=== PATIENT | female | born 1955 | race Caucasian/White ===

== ENCOUNTER → 2016-10-01 | Outpatient (CLI) | payer BC ==
[~2016-10-01] MED LIST: ACET-1311 PO; ASPI325T39 PO; BISA-16 PO; CALC500C3 PO; HYDR-5688 PO; MULT-513 PO; ONDA8TAB12 PO; PHEN1SUP PR; STLS PO; TAPE1TAB9 PO; WHEATAB2 PO
--- NOTE | 2016-10-02 13:09 | MAMMOGRAPHY REPORT ---
BILATERAL DIGITAL SCREENING MAMMOGRAM TOMOSYNTHESIS WITH CAD: 10/01/2016 CLINICAL HISTORY: Routine screening. Patient has no complaints. TECHNIQUE: Breast tomosynthesis in addition to standard 2D mammography was performed. Current study was also evaluated with a Computer Aided Detection (CAD) system. COMPARISON: Comparison is made to exams dated: 09/28/2015 mammogram, 09/21/2013 mammogram, 09/22/2014 m ammogram, 09/15/2012 mammogram, 03/17/2012 mammogram, and 09/06/2010 mammogram - [facility]. BREAST COMPOSITION: There are scattered areas of fibroglandular density in both breasts. FINDINGS: The breast parenchymal pattern is similar to prior mammograms. There are a few stable brian ign appearing round microcalcifications in the breasts. No suspicious mass, architectural distortio n or cluster of microcalcifications is seen. IMPRESSION: ACR BI-RADS CATEGORY 1: NEGATIVE There is no mammographic evidence of malignancy. A 1 year screening mammogram is recommended. The p atient will receive written notification of the results. Approximately 10% of breast cancers are not detected with mammography. A negative mammographic repor t should not delay biopsy if a clinically suggestive mass is present. Jannie Nguyen M.D. ay/:10/01/2016 17:06:02 Travel Services Professional: Gavin ALATORRE(Elvie)(M), [facility] letter sent: Normal 1/2 BI-RADS Code: ACR BI-RADS Category 1: Negative
== END | disposition home or self-care (01) ==
LOC: C.MAMM 08:39
PROVIDERS: ATTEND Family Medicine
DX: Z12.31 Encounter for screening mammogram for malignant neoplasm of breast (principal)

== ENCOUNTER 2017-08-21 20:20 | Observation (INO) | payer BC ==
[~2017-08-21] VITALS: Ht 165.1 cm; Wt 91.2 kg
[2017-08-21 20:24] VITALS: Ht 165.1 cm; Wt 91.2 kg
[2017-08-21] MEDS ORDERED: ASPIRIN 81 MG CHEW PO STA (21:06)
--- NOTE | 2017-08-21 21:11 | EMERGENCY ROOM VISIT NOTE ---
History Report prepared by David: Bertha Mae Under the Supervision of: Dr. Amber Welsh M.D. First contact with patient: 20:36 Chief Complaint: CHEST PAIN Stated Complaint: CHEST PAIN - SENT FROM URGENT CARE Nursing Triage Summary: pt c/o illness x2 weeks. seen at PCP and dx with bronchitis yesterday and placed on meds. today reports "it feels like an elephant is sitting on my chest." daughter reports elevated blood pressure at urgent care, BP in triage 205/129. pt ambulatory independently. cough noted. breathing regularly and independently. History of Present Illness The patient is a 62 year old female who presents to the Emergency Room with complaints of worsening chest heaviness beginning at 1430 today. The patient states that she has bronchitis and has been sick for the last 2 weeks. Per family, the patient has had bronchitis before but has never had the chest pain with it. She denies having fevers and nausea, but states that she has had a productive cough. She states that the pain does not radiate to her arms, jaw, or back. Per family, the patient's blood pressure was higher than usual today. The patient denies a history of cardiac problems and blood clots. She reports a history of uterine cancer 5 years ago. Source of History: patient, family Onset: 1430 today Position: chest Quality: other (heaviness) Timing: worsening Associated Symptoms: + cough (productive), No fevers, No nausea Review of Systems See HPI for pertinent positives & negatives. A total of 10 systems reviewed and were otherwise negative. Past Medical & Surgical Medical Problems: (1) Uterine cancer Surgical Problems: (1) History of hysterectomy Family History No pertinent family history stated. Social History Smoking Status: Never Smoker Marital Status: Housing Status: lives with family Occupation Status: employed Current/Historical Medications Scheduled Amlodipine (Norvasc), 5 MG PO DAILY Calcium Carbonate (Tums), 2 TABLETS PO DAILY Carvedilol (Carvedilol), 3.125 MG PO BID Levofloxacin (Levofloxacin), 500 MG PO DAILY@2100 Multiple Vitamins W/ Minerals (Centrum Silver Adult 50+), 1 TAB PO DAILY Prednisone (Prednisone), Unknown Dose PO DAILY Ranitidine (Zantac), 150 MG PO DAILY Scheduled PRN Acetaminophen (Tylenol), 650 MG PO Q6 PRN for Pain Benzonatate (Tessalon Perles), 100 MG PO DIRECTED PRN for Cough Docusate Sodium (Stool Softener), 100 MG PO BID PRN for Constipation Allergies Coded Allergies: Morphine (Verified Allergy, Intermediate, GI SYMPTOMS, 08/21/17) Oxycodone (Verified Adverse Reaction, Intermediate, GI SYMPTOMS, 08/21/17) NAUSEA/VOMITING Codeine (Verified Adverse Reaction, Mild, NAUSEA & VOMITING, 08/21/17) Physical Exam Vital Signs Date Time Temp Pulse Resp B/P (MAP) Pulse Ox O2 Delivery O2 Flow Rate FiO2 08/21/17 22:16 66 152/87 94 Room Air 08/21/17 21:16 73 08/21/17 20:28 96 Room Air 08/21/17 20:24 36.4 76 18 205/129 96 Room Air Physical Exam Vital signs reviewed. General: Well-appearing female, in no significant distress. HEENT: No scleral icterus, PERRLA, neck supple. Atraumatic. Cardiovascular: Regular rate and rhythm, no extra sounds. Chest: Tenderness to palpation over anterior chest wall. Pulmonary: Clear to auscultation bilaterally, normal work of breathing. Abdomen: Soft, nontender, nondistended, positive bowel sounds. Musculoskeletal: Atraumatic, no peripheral edema. Neurologic: Patient awake alert and oriented x 3, full strength in all 4 extremities. Cranial nerves 2 through 12 grossly intact. Skin: Warm, dry, no rash Medical Decision & Procedures ER Provider Diagnostic Interpretation: Radiology results as stated below per my review and radiologist interpretation: SINGLE VIEW CHEST CLINICAL HISTORY: Atypical chest pain. Cough and dyspnea. FINDINGS: An AP, portable, upright chest radiograph is compared to study dated 03/04/2014. The examination is degraded by portable technique and patient rotation. The heart is top normal for projection and there is atherosclerotic calcification of the thoracic aorta. Small calcified granulomas are observed. The lungs and pleural spaces are otherwise clear. No pneumothorax is seen. The skeletal structures are osteopenic. Arthritic change is noted in the shoulders and thoracic spine. IMPRESSION: No acute cardiopulmonary abnormality. Electronically signed by: Mark King M.D. 08/21/2017 10:17 PM Dictated Date/Time: 08/21/2017 10:16 PM Laboratory Results Test 08/21/17 21:25 08/21/17 21:29 08/21/17 21:34 Magnesium Level 2.4 mg/dl (1.8-2.4) Direct Bilirubin 0.1 mg/dl (0-0.2) Bedside D-Dimer 222 ng/mlFEU (0-450) Bedside Troponin I < 0.030 ng/ml (0-0.045) Urine Color YELLOW Urine Appearance CLEAR (CLEAR) Urine pH 6.0 (4.5-7.5) Urine Specific [place] 1.013 (1.000-1.030) Urine Protein NEG (NEG) Urine Glucose (UA) NEG (NEG) Urine Ketones NEG (NEG) Urine Occult Blood NEG (NEG) Urine Nitrite NEG (NEG) Urine Bilirubin NEG (NEG) Urine Urobilinogen NEG (NEG) Urine Leukocyte Esterase TRACE (NEG) Urine WBC (Auto) 1-5 /hpf (0-5) Urine RBC (Auto) 0-4 /hpf (0-4) Urine Hyaline Casts (Auto) 0 /lpf (0-5) Urine Epithelial Cells (Auto) 10-20 /lpf (0-5) Urine Bacteria (Auto) NEG (NEG) Laboratory results per my review. Medications Administered Medications (Trade) Dose Ordered Sig/Harish Route Start Time Stop Time Status Last Admin Dose Admin Aspirin (Aspirin Chew) 324 mg NOW STAT PO 08/21/17 21:06 08/21/17 21:08 DC 08/21/17 21:33 324 MG Nitroglycerin (Nitrostat Tab) 0.4 mg Q5M PRN SL 08/21/17 21:15 08/22/17 01:10 DC 08/21/17 21:59 0.4 MG Nitroglycerin (Nitroglycerin 2% Oint) 1 inch NOW ONCE EXT 08/21/17 22:45 08/21/17 22:46 DC 08/21/17 22:54 1 INCH ECG Indication: chest pain Rate (beats per minute): 73 Rhythm: normal sinus Findings: no acute ischemic change, no ectopy, other (left atrial enlargement) ED Course 2103: Past medical records reviewed. The patient was evaluated in room A7. A complete history and physical examination was performed. 2105: Ordered Aspirin 324 mg PO. 2114: Ordered Nitroglycerin 0.4 mg SL. 2244: Ordered Nitroglycerin 1 inch EXT. 2251: I reviewed the patient's case with Dr. Petersen. Dr. Petersen will evaluate the patient for further management. 2300: Upon reevaluation, the patient is resting comfortably. I discussed laboratory and radiographic results with her. She verbalized agreement of the treatment plan. The patient will be evaluated for further management and care. Medical Decision Differential Diagnoses: Acute coronary syndrome, pulmonary embolus, aortic dissection, musculoskeletal pain, pneumonia, pleural effusion, pneumothorax This patient was evaluated and appeared to be in no significant distress. IV access was obtained and laboratory work was drawn. She was given 324 mg of aspirin to chew. The patient was placed on the monitor technician and found to be in a normal sinus rhythm. EKG reveals no evidence of acute ischemic change. Chest x-ray is clear. Patient is noted to be markedly hypertensive. She did receive a glycerin for her chest discomfort. This did help and it did improve her blood pressure. Given the above findings, the patient will be evaluated by the hospitalist service for further management. She is aware of the plan and agrees. Medication Reconcilliation Current Medication List: was personally reviewed by me Blood Pressure Screening Patient's blood pressure: Elevated blood pressure will be monitored by hospitalist Consults Time Called: 2199 Consulting Physician: Dr. Acuña Returned Call: 2251 I reviewed the patient's case with Dr. Petersen. Dr. Petersen will evaluate the patient for further management. Impression Primary Impression: Hypertensive urgency Additional Impression: Substernal chest pain Scribe Attestation The scribe's documentation has been prepared under my direction and personally reviewed by me in its entirety. I confirm that the note above accurately reflects all work, treatment, procedures, and medical decision making performed by me. Departure Information Dispostion Being Evaluated By Hospitalist Prescriptions Ranitidine (Zantac) 150 Mg Tab 150 MG PO DAILY for 30 Days, #30 TAB Prov: Riki Kramer M.D. 08/23/17 Amlodipine (Norvasc) 5 Mg Tab 5 MG PO DAILY for 30 Days, #30 TAB Prov: Riki Kramer M.D. 08/23/17 Levofloxacin (Levofloxacin) 500 Mg Tab 500 MG PO DAILY@2100 for 6 Days, #6 TAB Prov: Riki Kramer M.D. 08/23/17 Carvedilol (Carvedilol) 3.125 Mg Tab 3.125 MG PO BID for 30 Days, #60 TAB Prov: Riki Kramer M.D. 08/23/17 Referrals Joon Benavidez III, M.D. (PCP) Patient Instructions My [facility] Problem Qualifiers
[2017-08-21] MEDS ORDERED: BENZ100C84 PO (21:29)
[2017-08-21] MEDS ORDERED: MULT-845 PO (21:29)
[2017-08-21] MEDS ORDERED: HYDR5SYP11 PO (21:29)
[2017-08-21] MEDS ORDERED: PRED20TA PO (21:29)
[2017-08-21] MEDS ORDERED: MELO-83 PO (21:29)
[2017-08-21] MEDS ORDERED: DOCU100C PO (21:29)
[2017-08-21] MEDS: NITROGLYCERIN 0.4 MG SL PER TAB CHARGE SL PRN ×2 (21:33→21:59)
[2017-08-21 21:37] LABS: BASO % 0.1 %; BASO ABS # 0.01 K/uL (0-0.2); HEMATOCRIT 40.4 % (37-47); HEMOGLOBIN 13.4 g/dL (12.0-16.0); IG# 0.03 K/uL (0.00-0.02); LYMPH % 13.2 %; LYMPH ABS # 1.01 K/uL (1.2-3.4); MEAN CELL VOLUME 87.6 fL (80-100); MEAN CORPUSCULAR HEMOGLOBIN 29.1 pg (25-34); MEAN CORPUSCULAR HGB CONC 33.2 g/dl (32-36); MEAN PLATELET VOLUME 10.1 fL (7.4-10.4); MONO % 7.3 %; MONO ABS # 0.56 K/uL (0.11-0.59); NEUT ABS # 6.05 K/uL (1.4-6.5); PLATELET COUNT 219 K/uL (130-400); RED CELL DISTRIBUTION WIDTH CV 14.7 % (11.5-14.5); RED CELL DISTRIBUTION WIDTH SD 47.4 fL (36.4-46.3); WHITE BLOOD COUNT 7.66 K/uL (4.8-10.8)
[2017-08-21 21:56] LABS: ALBUMIN 4.1 gm/dl (3.4-5.0); CALCIUM 9.1 mg/dl (8.5-10.1); CREATININE 0.73 mg/dl (0.60-1.20); POTASSIUM 3.9 mmol/L (3.5-5.1)
[2017-08-21 21:59] LABS: TOTAL PROTEIN 7.2 gm/dl (6.4-8.2)
--- NOTE | 2017-08-21 22:18 | DIAGNOSTIC IMAGING REPORT ---
SINGLE VIEW CHEST CLINICAL HISTORY: Atypical chest pain. Cough and dyspnea. FINDINGS: An AP, portable, upright chest radiograph is compared to study dated 03/04/2014. The examination is degraded by portable technique and patient rotation. The heart is top normal for projection and there is atherosclerotic calcification of the thoracic aorta. Small calcified granulomas are observed. The lungs and pleural spaces are otherwise clear. No pneumothorax is seen. The skeletal structures are osteopenic. Arthritic change is noted in the shoulders and thoracic spine. IMPRESSION: No acute cardiopulmonary abnormality. Electronically signed by: Mark King M.D. 08/21/2017 10:17 PM Dictated Date/Time: 08/21/2017 10:16 PM
[2017-08-21] MEDS ORDERED: NITROGLYCERIN OINT 2% 1GM PACKET EXT ONE (22:45)
[2017-08-21] MEDS ORDERED: IV FLUIDS COMPLETED PRN (23:45)
[2017-08-22] VITALS (11 sets, daily range): BP systolic 124–166; BP diastolic 73–95; PULSE 61–90; TEMP 36.4–36.7; O2SAT 92–98
[2017-08-22] MEDS ORDERED: LEVOFLOXACIN 500 MG TAB PO ONE (00:38)
[2017-08-22] MEDS ORDERED: BENZONATATE 100MG CAP PO PRN (00:45)
[2017-08-22] MEDS ORDERED: CLONIDINE HCL 0.1 MG TAB PO PRN (00:45)
[2017-08-22] MEDS ORDERED: ONDANSETRON INJ 2 MG/ML 2 ML VIAL IV PRN (00:45)
[2017-08-22] MEDS ORDERED: NITROGLYCERIN 0.4 MG SL PER TAB CHARGE SL PRN (00:45)
--- NOTE | 2017-08-22 00:58 | History and Physical ---
History & Physical Date & Time of Service: Aug 22, 2017 at 00:46 Chief Complaint: Chest Pain - Sent From Urgent Care Primary Care Physician: Joon Benavidez III, M.D. History of Present Illness Source: patient, clinic records 62 year old female with history of Uterine CA, and other problems noted below presenting with chest pain starting his afternoon. Patient follows with Dr. Benavidez for PCP. Patient has been having 2-3 weeks history of productive cough and progressive dyspnea with exertion. She saw Dr. Benavidez yesterday, found to have wheezing, told to have bronchitis and was given Prednisone, Hycodan and Tessalon pearles which patient started to take yesterday with minimal relief of symptoms. 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 She went to the Urgent Care Clinic and patient was directed to come to the ER. At the ER, patient's systolic bp was in the 170s. EKG no signs of ischemia CM x 1 negative CXR no pneumonia. She was given Nitro SL x 2 with relief of chest pain. On my exam, patient seen resting, comfortable. States chest pain is only 1/10, denies other symptoms. Past Medical/Surgical History Medical Problems: (1) Uterine cancer Status: Resolved Surgical Problems: (1) History of hysterectomy Status: Resolved Family History Heart Attack- Brother Social History Smoking Status: Never Smoker Smokeless Tobacco Use: No Alcohol Use: none Drug Use: none Marital Status: Housing status: lives with family Occupational Status: employed Immunizations History of Influenza Vaccine: No History of Tetanus Vaccine?: No History of Pneumococcal: No History of Hepatitis B Vaccine: Yes Multi-Drug Resistant Organisms History of MDRO: No Allergies Coded Allergies: Morphine (Verified Allergy, Intermediate, GI SYMPTOMS, 08/21/17) Oxycodone (Verified Adverse Reaction, Intermediate, GI SYMPTOMS, 08/21/17) NAUSEA/VOMITING Codeine (Verified Adverse Reaction, Mild, NAUSEA & VOMITING, 08/21/17) Home Medications Scheduled Amlodipine (Norvasc), 5 MG PO DAILY Calcium Carbonate (Tums), 2 TABLETS PO DAILY Carvedilol (Carvedilol), 3.125 MG PO BID Levofloxacin (Levofloxacin), 500 MG PO DAILY@2100 Multiple Vitamins W/ Minerals (Centrum Silver Adult 50+), 1 TAB PO DAILY Prednisone (Prednisone), Unknown Dose PO DAILY Ranitidine (Zantac), 150 MG PO DAILY Scheduled PRN Acetaminophen (Tylenol), 650 MG PO Q6 PRN for Pain Benzonatate (Tessalon Perles), 100 MG PO DIRECTED PRN for Cough Docusate Sodium (Stool Softener), 100 MG PO BID PRN for Constipation Review of Systems Constitutional- no fever; no weight loss Eyes- no acute visual changes ENT- no sinus drainage; no pharyngitis Pulmonary-(+) as above Cardiac-(+) as above GI- no nausea, no vomiting, no diarrhea, no melena, no hematochezia - no dysuria, no hematuria Musculoskeletal- no arthralgias, no myalgias Derm- no rashes, no new skin lesions, no changing skin lesions Hematologic- no unusual bruising, no unusual bleeding Lymphatics- no adenopathy Endocrine- no polyuria or polydipsia; no heat or cold intolerance Neuro- no headaches, no focal neurologic symptoms Psych- no anxiety, no depression Physical Exam Vital Signs Date Time Temp Pulse Resp B/P (MAP) Pulse Ox O2 Delivery O2 Flow Rate FiO2 08/22/17 00:40 36.4 66 18 163/83 95 08/21/17 23:50 66 163/83 95 Room Air 08/21/17 22:16 66 152/87 94 Room Air 08/21/17 21:16 73 08/21/17 20:28 96 Room Air 08/21/17 20:24 36.4 76 18 205/129 96 Room Air General Appearance: WD/WN, no apparent distress Head: normocephalic, atraumatic Eyes: normal inspection, PERRL, EOMI, sclerae normal ENT: normal ENT inspection, hearing grossly normal, pharynx normal Neck: supple, no adenopathy, thyroid normal, no JVD, trachea midline Respiratory/Chest: chest non-tender, lungs clear, normal breath sounds, no respiratory distress, no accessory muscle use Cardiovascular: regular rate, rhythm, no edema, no JVD, no murmur, normal peripheral pulses Abdomen/GI: normal bowel sounds, non tender, soft Back: normal inspection, no CVA tenderness Extremities/Musculoskelatal: normal inspection, no calf tenderness, normal capillary refill, no pedal edema Neurologic/Psych: clinical liaison II-XII nml as tested, no motor/sensory deficits, alert, normal mood/affect, oriented x 3 Skin: normal color, warm/dry Lymphatic: no adenopathy Diagnostics Laboratory Results Results Past 24 Hours Test 08/21/17 21:25 08/21/17 21:29 08/21/17 21:34 Range/Units White Blood Count 7.66 4.8-10.8 K/uL Red Blood Count 4.61 4.2-5.4 M/uL Hemoglobin 13.4 12.0-16.0 g/dL Hematocrit 40.4 37-47 % Mean Corpuscular Volume 87.6 80-100 fL Mean Corpuscular Hemoglobin 29.1 25-34 pg Mean Corpuscular Hemoglobin Concent 33.2 32-36 g/dl Platelet Count 219 130-400 K/uL Mean Platelet Volume 10.1 7.4-10.4 fL Neutrophils (%) (Auto) 79.0 % Lymphocytes (%) (Auto) 13.2 % Monocytes (%) (Auto) 7.3 % Eosinophils (%) (Auto) 0.0 % Basophils (%) (Auto) 0.1 % Neutrophils # (Auto) 6.05 1.4-6.5 K/uL Lymphocytes # (Auto) 1.01 1.2-3.4 K/uL Monocytes # (Auto) 0.56 0.11-0.59 K/uL Eosinophils # (Auto) 0.00 0-0.5 K/uL Basophils # (Auto) 0.01 0-0.2 K/uL RDW Standard Deviation 47.4 36.4-46.3 fL RDW Coefficient of Variation 14.7 11.5-14.5 % Immature Granulocyte % (Auto) 0.4 % Immature Granulocyte # (Auto) 0.03 0.00-0.02 K/uL Sodium Level 141 136-145 mmol/L Potassium Level 3.9 3.5-5.1 mmol/L Chloride Level 106 98-107 mmol/L Carbon Dioxide Level 30 21-32 mmol/L Anion Gap 5.0 3-11 mmol/L Blood Urea Nitrogen 22 7-18 mg/dl Creatinine 0.73 0.60-1.20 mg/dl Est Creatinine Clear Calc Drug Dose 70.1 ml/min Estimated GFR () 100.9 Estimated GFR (Non- 87.0 BUN/Creatinine Ratio 29.8 10-20 Random Glucose 125 70-99 mg/dl Calcium Level 9.1 8.5-10.1 mg/dl Magnesium Level 2.4 1.8-2.4 mg/dl Total Bilirubin 0.3 0.2-1 mg/dl Direct Bilirubin 0.1 0-0.2 mg/dl Aspartate Amino Transf (AST/SGOT) 16 15-37 U/L Alanine Aminotransferase (ALT/SGPT) 82 12-78 U/L Alkaline Phosphatase 81 45-117 U/L Total Protein 7.2 6.4-8.2 gm/dl Albumin 4.1 3.4-5.0 gm/dl Bedside D-Dimer 222 0-450 ng/mlFEU Bedside Troponin I < 0.030 0-0.045 ng/ml Urine Color YELLOW Urine Appearance CLEAR CLEAR Urine pH 6.0 4.5-7.5 Urine Specific [place] 1.013 1.000-1.030 Urine Protein NEG NEG Urine Glucose (UA) NEG NEG Urine Ketones NEG NEG Urine Occult Blood NEG NEG Urine Nitrite NEG NEG Urine Bilirubin NEG NEG Urine Urobilinogen NEG NEG Urine Leukocyte Esterase TRACE NEG Urine WBC (Auto) 1-5 0-5 /hpf Urine RBC (Auto) 0-4 0-4 /hpf Urine Hyaline Casts (Auto) 0 0-5 /lpf Urine Epithelial Cells (Auto) 10-20 0-5 /lpf Urine Bacteria (Auto) NEG NEG Diagnostic Radiology CXR: no infiltrates noted EKG sinus rhythm, HR 73, no signs of acute ischemia or infarct Impression Assessment and Plan 62 year old female with history of Uterine CA, and other problems noted below presenting with chest pain starting his afternoon. CHEST PAIN POSSIBLY FROM HYPERTENSIVE URGENCY - no history of HTN - relieved with Nitro x 2 - start Amlodipine 5mg po daily PRN Clonidine POSSIBLE COSTOCHONDRITIS - has 2-3 week history of persistent cough R/O ACS - risk factor: history of CAD- brother, underlying HTN? - CM x 2 echo - was given ASA at the ER given 2 Nitros with relief - will consult Cardiology ACUTE BRONCHITIS - started 2-3 weeks ago - CXR no infiltrates - start Levaquin 500mg po daily Nebs PRN Tessalon pearls short Prednisone course HISTORY OF UTERINE CANCER - monitor as outpatient DVT Prophylaxis - Heparin SC FULL CODE DISPOSITION anticipate return home when medically stable ff up with PCP Dr. Benavidez VTE Prophylaxis VTE Risk Assessment Done? Y/N: Yes Risk Level: Moderate Given or contraindicated: SCD's
--- NOTE | 2017-08-22 01:00 | NUR ---
A: Patient received into room 280-1. NSR on the panel monitor. No complaints of CP. Patient C/O GARZON- Nitro paste removed by documentation writer. Oriented to room and call sharp system. Fall risk and code word documents completed and placed on chart. Patient encouraged to ring for assistance when needed. Will continue to monitor and assess patient.
[2017-08-22] MEDS: LEVALBUTEROL 0.63MG/3 ML NEB INH SCH ×3 (01:35→07:22)
[2017-08-22] MEDS: ACETAMINOPHEN 325 MG TAB PO PRN (01:57)
--- NOTE | 2017-08-22 04:00 | NUR ---
A: Patient is resting well. No complaints of pain or signs of distress. Remains on the metal tube cutter. No acute changes. Will continue to monitor and assess patient. Patient is wearing own shoes in the room. Addendum: 08/22/17 at 0505 by Ginette Chicas RN Observation status
[2017-08-22 04:03] LABS: CKMB 2.5 ng/ml (0.5-3.6)
[2017-08-22] MEDS ORDERED: PNEUMOCOCCAL POLYSACCHARIDES 25 MCG/0.5 ML VIAL/SYR IM. ONE (05:00)
[2017-08-22] MEDS ORDERED: PNEUMOCOCCAL ADMINISTRATION CHARGE ONE (05:00)
[2017-08-22] MEDS ORDERED: NURSING VERBAL MED ORDER ONE (05:30)
[2017-08-22] MEDS: HEPARIN SOD 5000 UNIT/0.5 ML CARP SQ SCH ×3 (06:00→21:28)
--- NOTE | 2017-08-22 08:00 | NUR ---
OBS- Alert and oriented. Denies CP/chest pressure. SR on monitor. Continue with md plan
[2017-08-22] MEDS: ALBUTEROL HFA INHALER 8.5 GM INH SCH ×4 (08:08→21:26)
[2017-08-22] MEDS ORDERED: AMLODIPINE BESYLATE 5 MG TAB PO SCH (09:00)
[2017-08-22] MEDS ORDERED: LEVALBUTEROL 0.63MG/3 ML NEB INH PRN (09:00)
--- NOTE | 2017-08-22 11:37 | Cardiology Consultation ---
Cardiology Consultation Date of Consultation: Aug 22, 2017 Requesting Physician: Nicola Attending Director Of Corporate Marketing: Marin (Kristian Hickey PA-C) History of Present Illness Mrs. Sebastian is a very pleasant 62 year old female who is being seen at the request of Dr. Petersen. Reason for consultation is chest pain. Mrs. Sebastian notes no prior cardiac history. She denies history of CAD, AK, CHF, arrhythmias , heart murmur, rheumatic fever, or scarlet fever and denies a prior history of hypertension, dyslipidemia, or diabetes mellitus. For approximately the last two to three weeks she has been dealing with bronchitic symptoms. On Saturday she was evaluated by her PCP and prescribed Prednisone, Hycodan, and Tessalon Perles. She also takes Mobic daily for arthritis. Yesterday she developed a constant nonradiating heaviness sensation in the chest that seemed to be aggravated by activity and improved but never resolved with rest. Towards evening it felt as though she had an elephant on her chest and had "some trouble breathing." After consulting with her son and [id number] who is a PA-C for [facility] she decided to seek care at Urgent Care who referred her to the [facility] ER. Blood pressure was documented to be 205/129. She was given two sublingual nitroglycerin with improvement in her presenting symptoms. Blood pressure improved to 152/87. Chest x-ray showed no acute cardiopulmonary abnormality. EKG revealed normal sinus rhythm at 73 bpm with possible left atrial enlargement and early repolarization type changes. Thus far, cardiac enzymes are negative times two. Repeat EKG this morning revealed normal sinus rhythm with voltage criteria for LVH. Resting echocardiography is pending. (Kristian Hickey PA-C) Past Medical/Surgical History Problem List: Past Medical and Surgical History: Uterine cancer Total abdominal hysterectomy Tubal ligation Lumbar spinal fusion Right knee replacement. Right carpal tunnel surgery (Kristian Hickey PA-C) Family History Father with pancreatic cancer at 70. He had a history of CAD. Mother of "old age," age 86. Brother later year with what sounds like a PE. (Kristian Hickey PA-C) Social History Nonsmoker. Rare alcohol. No illegal drug use. . 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 (Kristian Hickey PA-C) Review Of Systems General: No current fever or chills. HEENT: No headache. Cardiovascular: See above. Pulmonary: See above. Gastrointestinal: No nausea, vomiting, or diarrhea. No melena or hematochezia. Skin: No rash. Musculoskeletal: No myalgias or arthralgias. Neurological: No history of TIA, CVA, or seizures. Complete review of systems is as stated above, negative, or noncontributory. (Kristian Hickey PA-C) Allergies Coded Allergies: Morphine (Verified Allergy, Intermediate, GI SYMPTOMS, 08/21/17) Oxycodone (Verified Adverse Reaction, Intermediate, GI SYMPTOMS, 08/21/17) NAUSEA/VOMITING Codeine (Verified Adverse Reaction, Mild, NAUSEA & VOMITING, 08/21/17) Medications Reported Home Medications Medications Dose Route/Sig Max Daily Dose Days Date Category Dose Instructions Hycodan 5/1.5MG 5 Ml (Hydrocodone W/ Homatropine) 1 Syp Syp Unknown Dose PO DIRECTED PRN 08/21/17 Reported "TO TAKE MOSTLY AT BEDTIME". Prednisone 20 Mg Tab Unknown Dose PO DAILY 08/21/17 Reported TAPER DOSE STARTED 08/20/17 FOR 5 DAYS. Tessalon Perles (Benzonatate) 100 Mg Cap 100 Mg PO DIRECTED PRN 08/21/17 Reported Meloxicam 15 Mg Tab 15 Mg PO DAILY 08/21/17 Reported Stool Softener (Docusate Sodium) 100 Mg Cap 100 Mg PO BID PRN 08/21/17 Reported Centrum Silver Adult 50+ (Multiple Vitamins W/ Minerals) 1 Tab Tab 1 Tab PO DAILY 08/21/17 Reported Tylenol (Acetaminophen) 325 Mg Tab 650 Mg PO Q6 PRN 02/24/14 Reported Tums (Calcium Carbonate) 500 Mg Chew 2 Tablets PO DAILY 05/09/11 Reported (Kristian Hickey PA-C) Physical Exam Vital Signs (Last 8hrs): Last 8 Hrs Date Time Temp Pulse Resp B/P (MAP) Pulse Ox O2 Delivery O2 Flow Rate FiO2 08/22/17 08:00 Room Air 08/22/17 07:33 36.6 65 16 154/86 (108) 93 Room Air 08/22/17 07:26 61 16 98 Room Air 08/22/17 04:28 36.4 73 18 124/73 (90 96 Room Air 08/22/17 04:00 Room Air General: Alert and Oriented x3. NAD. HEENT: Normocephalic Atraumatic. PER. EOMI. Conjunctiva and sclera clear Neck: Supple. No carotid bruits noted. No JVD. Respiratory: Breath sounds clear to auscultation bilaterally. No w/r/r. Cardiovascular: Regular with a soft systolic ejection murmur. No diastolic murmur. No rub. No gallop. PMI is non displaced. Abdomen: +BS. Soft. Nontender. No masses. Extremities: No edema. No clubbing. No cyanosis. Distal pulses 1-2/4 bilaterally. Neuro: No focal deficits. Psychiatric: Normal affect. (Kristian Hickey PA-C) Data Last 24 Hours Test 08/21/17 21:25 08/21/17 21:29 08/21/17 21:34 08/22/17 03:20 White Blood Count 7.66 K/uL Red Blood Count 4.61 M/uL Hemoglobin 13.4 g/dL Hematocrit 40.4 % Mean Corpuscular Volume 87.6 fL Mean Corpuscular Hemoglobin 29.1 pg Mean Corpuscular Hemoglobin Concent 33.2 g/dl Platelet Count 219 K/uL Mean Platelet Volume 10.1 fL Neutrophils (%) (Auto) 79.0 % Lymphocytes (%) (Auto) 13.2 % Monocytes (%) (Auto) 7.3 % Eosinophils (%) (Auto) 0.0 % Basophils (%) (Auto) 0.1 % Neutrophils # (Auto) 6.05 K/uL Lymphocytes # (Auto) 1.01 K/uL Monocytes # (Auto) 0.56 K/uL Eosinophils # (Auto) 0.00 K/uL Basophils # (Auto) 0.01 K/uL RDW Standard Deviation 47.4 fL RDW Coefficient of Variation 14.7 % Immature Granulocyte % (Auto) 0.4 % Immature Granulocyte # (Auto) 0.03 K/uL Sodium Level 141 mmol/L Potassium Level 3.9 mmol/L Chloride Level 106 mmol/L Carbon Dioxide Level 30 mmol/L Anion Gap 5.0 mmol/L Blood Urea Nitrogen 22 mg/dl Creatinine 0.73 mg/dl Est Creatinine Clear Calc Drug Dose 70.1 ml/min Estimated GFR () 100.9 Estimated GFR (Non- 87.0 BUN/Creatinine Ratio 29.8 Random Glucose 125 mg/dl Calcium Level 9.1 mg/dl Magnesium Level 2.4 mg/dl Total Bilirubin 0.3 mg/dl Direct Bilirubin 0.1 mg/dl Aspartate Amino Transf (AST/SGOT) 16 U/L Alanine Aminotransferase (ALT/SGPT) 82 U/L Alkaline Phosphatase 81 U/L Total Protein 7.2 gm/dl Albumin 4.1 gm/dl Bedside D-Dimer 222 ng/mlFEU Bedside Troponin I < 0.030 ng/ml Urine Color YELLOW Urine Appearance CLEAR Urine pH 6.0 Urine Specific [place] 1.013 Urine Protein NEG Urine Glucose (UA) NEG Urine Ketones NEG Urine Occult Blood NEG Urine Nitrite NEG Urine Bilirubin NEG Urine Urobilinogen NEG Urine Leukocyte Esterase TRACE Urine WBC (Auto) 1-5 /hpf Urine RBC (Auto) 0-4 /hpf Urine Hyaline Casts (Auto) 0 /lpf Urine Epithelial Cells (Auto) 10-20 /lpf Urine Bacteria (Auto) NEG Prothrombin Time 10.3 SECONDS Prothromb Time International Ratio 1.0 Total Creatine Kinase 52 U/L Creatine Kinase MB 2.5 ng/ml Creatine Kinase MB Ratio 4.8 Troponin I < 0.015 ng/ml Test 08/22/17 09:32 Total Creatine Kinase 46 U/L Creatine Kinase MB 2.0 ng/ml Creatine Kinase MB Ratio 4.3 Troponin I < 0.015 ng/ml Telemetry: Sinus around 70 bpm. No significant atrial or ventricular arrhythmias observed. No pauses. (Kristian Hickey PA-C) Assessment & Plan 62 year old female admitted with chest heaviness likely representing hypertensive urgency. EKG's negative x 2. Troponin negative x 2 RECOMMENDATIONS: Serial cardiac enzymes Resting echocardiography Add low dose Carvedilol and amlodipine for blood pressure control. Stress testing once blood pressure is adequately controlled and she is over the acute pulmonary illness, unless cardiac enzymes/TTE dictate need for catheterization. Recommend discontinuation of Mobic, risk factor and life style modification. (Kristian Hickey PA-C) CARDIOLOGY ATTENDING ADDENDUM: The patient was seen and personally examined. Agree with Kristian Hickey PA-C's findings and plans as documented above. (Rohan Funes, DO)
--- NOTE | 2017-08-22 12:00 | NUR ---
OBS- Alert and oriented , OOB independently. SR on monitor. Denies pain. Echo ordered, cardiology on consult
--- NOTE | 2017-08-22 16:00 | NUR ---
A: Patient alert and oriented times four. Patient has no complaint of chest pain or shortness of breath. patient is independent in the room and ambulates in bhatia way. Patient is resting with call sharp in reach.
--- NOTE | 2017-08-22 18:26 | ECHOCARDIOGRAM REPORT ---
*NOTICE TO RECEIVING REPUBLICAN AGENCY This information is strictly Confidential and protected under [place] law. [place] law prohibits you from making any further disclosure of this information unless further disclosure is expressly permitted by the written consent of the person to whom it pertains or is authorized by law. A general authorization for the release of medical or other information is not sufficient for this purpose. Hospital accepts no responsibility if the information is made available to any other person, INCLUDING THE PATIENT. Interpretation Summary * Name: CHUCK GARDUNO Study Date: 08/22/2017 01:40 PM BP: 153/88 mmHg * Patient Location: .[facility]\S\N280\S\1 HR: 70 * : 1955 (M/d/yyyy) Gender: Female Height: 65 in * Age: 62 yrs Ethnicity: [place] Weight: 204 lb * Ordering Physician: Russell Petersen * Referring Physician: Self, Referred * Performed By: Rosemarie Blanchard RCS * * Reason For Study: CHEST PAIN * BSA: 2.0 m2 * -- Conclusions -- * The left ventricle is normal in size. * There is borderline concentric left ventricular hypertrophy. * Ejection Fraction = 55-60%. * The right ventricular systolic function is normal. * The left atrial size is normal. * Right atrial size is normal. * No significant valvular pathology. Procedure Details * A complete two-dimensional transthoracic echocardiogram was performed (2D, M-mode, Doppler and color flow Doppler). Left Ventricle * The left ventricle is normal in size. * There is borderline concentric left ventricular hypertrophy. * Left ventricular systolic function is normal. * Ejection Fraction = 55-60%. * The left ventricular wall motion is normal. Right Ventricle * The right ventricle is normal size. * The right ventricular systolic function is normal. Atria * The left atrial size is normal. * Right atrial size is normal. * There is no evidence of atrial septal defect, but resolution does not allow assessment for a patent foramen ovale. Mitral Valve * The mitral valve anatomy is normal. * Significant mitral regurgitation is absent. Tricuspid Valve * The tricuspid valve anatomy is normal. * Significant tricuspid regurgitation is absent. Aortic Valve * The aortic valve is tricuspid. The leaflet thickness if normal. There is no aortic stenosis, and no significant insufficiency. * No hemodynamically significant valvular aortic stenosis. * There is no significant aortic regurgitation. Great Vessels * The aortic root and proximal ascending aorta are normal sized. Pericardium/Pleural * There is no pericardial effusion. MMode 2D Measurements and Calculations IVSd 1.1 cm IVSs 1.5 cm LVIDd 4.2 cm LVIDs 3.0 cm LVPWd 1.0 cm LVPWs 0.89 cm IVS/LVPW 1.0 FS 29.2 % EDV(Teich) 79.8 ml ESV(Teich) 34.9 ml EF(Teich) 56.3 % EDV(cubed) 75.6 ml ESV(cubed) 26.9 ml EF(cubed) 64.5 % % IVS thick 41.6 % % LVPW thick -15.27 % LV mass(C)d 152.1 grams LV mass(C)dI 76.2 grams/m\S\2 LV mass(C)s 111.0 grams LV mass(C)sI 55.6 grams/m\S\2 SV(Teich) 45.0 ml SI(Teich) 22.5 ml/m\S\2 SV(cubed) 48.7 ml SI(cubed) 24.4 ml/m\S\2 Ao root diam 2.6 cm Ao root area 5.1 cm\S\2 LA dimension 3.3 cm LA/Ao 1.3 LVOT diam 1.8 cm LVOT area 2.4 cm\S\2 LVAd ap4 31.0 cm\S\2 LVLd ap4 8.0 cm EDV(MOD-sp4) 97.1 ml EDV(sp4-el) 102.6 ml LVAs ap4 20.4 cm\S\2 LVLs ap4 7.1 cm ESV(MOD-sp4) 48.0 ml ESV(sp4-el) 49.9 ml EF(MOD-sp4) 50.5 % EF(sp4-el) 51.4 % LVAd ap2 31.0 cm\S\2 LVLd ap2 7.9 cm EDV(MOD-sp2) 97.5 ml EDV(sp2-el) 102.5 ml LVAs ap2 19.1 cm\S\2 LVLs ap2 6.9 cm ESV(MOD-sp2) 43.0 ml ESV(sp2-el) 44.8 ml EF(MOD-sp2) 55.9 % EF(sp2-el) 56.3 % LVLd %diff -0.28 % EDV(MOD-bp) 98.2 ml LVLs %diff -3.18 % ESV(MOD-bp) 46.0 ml EF(MOD-bp) 53.1 % SV(MOD-sp4) 49.1 ml SI(MOD-sp4) 24.6 ml/m\S\2 SV(MOD-sp2) 54.6 ml SI(MOD-sp2) 27.4 ml/m\S\2 SV(MOD-bp) 52.1 ml SI(MOD-bp) 26.1 ml/m\S\2 SV(sp4-el) 52.8 ml SI(sp4-el) 26.4 ml/m\S\2 SV(sp2-el) 57.7 ml SI(sp2-el) 28.9 ml/m\S\2 Doppler Measurements and Calculations MV E max berta 96.5 cm/sec MV A max berta 107.3 cm/sec MV E/A 0.90 MV P1/2t max berta 108.7 cm/sec MV P1/2t 61.1 msec MVA(P1/2t) 3.6 cm\S\2 MV dec slope 521.0 cm/sec\S\2 MV dec time 0.20 sec Ao V2 max 172.6 cm/sec Ao max PG 11.9 mmHg Ao max PG (full) 6.9 mmHg SHARAN(V,A) 1.6 cm\S\2 SHARAN(V,D) 1.6 cm\S\2 LV V1 max PG 5.0 mmHg LV V1 max 111.6 cm/sec PA V2 max 100.9 cm/sec PA max PG 4.1 mmHg
--- NOTE | 2017-08-22 19:19 | Progress Note ---
Progress Note Date of Service Aug 22, 2017. Progress Note Subjective Patient has been doing well today. No acute chest discomfort reported. Has some intermittent cough. But is comfortable Physical Exam General: no acute distress Lungs: good air entry, no wheezing Heart: Regular rate Abdomen: soft, nontender, + bowel sounds Extremities: no edema Plan: Cardiac workup for rule out ACS Patient has troponins negative x 3. Echocardiogram results * The left ventricle is normal in size. * There is borderline concentric left ventricular hypertrophy. * Ejection Fraction = 55-60%. * The right ventricular systolic function is normal. * The left atrial size is normal. * Right atrial size is normal. * No significant valvular pathology. Procedure Details * A complete two-dimensional transthoracic echocardiogram was performed (2D, M-mode, Doppler and color flow Doppler). Left Ventricle * The left ventricle is normal in size. * There is borderline concentric left ventricular hypertrophy. * Left ventricular systolic function is normal. * Ejection Fraction = 55-60%. * The left ventricular wall motion is normal. Right Ventricle * The right ventricle is normal size. * The right ventricular systolic function is normal. Atria * The left atrial size is normal. * Right atrial size is normal. * There is no evidence of atrial septal defect, but resolution does not allow assessment for a patent foramen ovale. Mitral Valve * The mitral valve anatomy is normal. * Significant mitral regurgitation is absent. Tricuspid Valve * The tricuspid valve anatomy is normal. * Significant tricuspid regurgitation is absent. Aortic Valve * The aortic valve is tricuspid. The leaflet thickness if normal. There is no aortic stenosis, and no significant insufficiency. * No hemodynamically significant valvular aortic stenosis. * There is no significant aortic regurgitation. Great Vessels * The aortic root and proximal ascending aorta are normal sized. Pericardium/Pleural * There is no pericardial effusion. As per other cardiology recommendations today on 08/22/17 "Add low dose Carvedilol and amlodipine for blood pressure control. Stress testing once blood pressure is adequately controlled and she is over the acute pulmonary illness, unless cardiac enzymes/TTE dictate need for catheterization. Recommend discontinuation of Mobic, risk factor and life style modification." ACUTE BRONCHITIS - started 2-3 weeks ago - CXR no infiltrates - continue with Levaquin 500mg po daily Nebs PRN Tessalon pearls short Prednisone course HISTORY OF UTERINE CANCER - monitor as outpatient DVT Prophylaxis - Heparin SC FULL CODE
--- NOTE | 2017-08-22 20:00 | NUR ---
A: See previous note assessment unchanged.
[2017-08-22] MEDS ORDERED: LEVOFLOXACIN 500 MG TAB PO SCH (21:00)
[2017-08-22] MEDS: CARVEDILOL 3.125 MG TAB PO SCH (21:26)
--- NOTE | 2017-08-23 | NUR ---
A/OBS/ID: Patient is resting well. No complaints of pain or signs of distress. Patient remains NPO except meds for further cardiac testing in am. Possible discharge after testing pending results. 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 Will continue to monitor and assess patient. Remains under observation status. Independent with all ADLs.
--- NOTE | 2017-08-23 04:00 | NUR ---
A/OBS: Patient admitted with substernal chest pain. A&OX4. Denies chest pain, SOB, N/V. SL left forearm. No edema, positive pulses. NSR on the monitor. Lungs are diminished throughout on room air. Skin intact. VSS. NPO except meds for stress echo today. Independent in the room. Pt is from home. Hourly rounding. Encouraged to ring for assistance. Will continue to monitor.
[2017-08-23 05:04] VITALS: BP 122/82; PULSE 75; TEMP 36.7; O2SAT 98
[2017-08-23] MEDS: HEPARIN SOD 5000 UNIT/0.5 ML CARP SQ SCH ×2 (05:50→14:00)
[2017-08-23 06:27] LABS: BASO % 0.6 %; BASO ABS # 0.04 K/uL (0-0.2); EOS % 1.1 %; EOS ABS # 0.07 K/uL (0-0.5); HEMATOCRIT 43.2 % (37-47); HEMOGLOBIN 14.2 g/dL (12.0-16.0); IG# 0.02 K/uL (0.00-0.02); LYMPH % 36.3 %; LYMPH ABS # 2.32 K/uL (1.2-3.4); MEAN CELL VOLUME 88.5 fL (80-100); MEAN CORPUSCULAR HEMOGLOBIN 29.1 pg (25-34); MEAN CORPUSCULAR HGB CONC 32.9 g/dl (32-36); MEAN PLATELET VOLUME 10.3 fL (7.4-10.4); MONO % 8.6 %; MONO ABS # 0.55 K/uL (0.11-0.59); NEUT % 53.1 %; NEUT ABS # 3.39 K/uL (1.4-6.5); PLATELET COUNT 206 K/uL (130-400); RED CELL DISTRIBUTION WIDTH CV 14.9 % (11.5-14.5); RED CELL DISTRIBUTION WIDTH SD 47.9 fL (36.4-46.3); WHITE BLOOD COUNT 6.39 K/uL (4.8-10.8)
[2017-08-23 06:48] VITALS: BP 162/88; PULSE 67; TEMP 36.5; O2SAT 91
--- NOTE | 2017-08-23 06:49 | NUR ---
Pt rang her call sharp and stated "I am having chest heaviness and tightness." Pts vitals are obtained. Stat EKG ordered. Replanting Machine Crewman notified. Will continue to monitor.
[2017-08-23 07:01] LABS: ALBUMIN 3.6 gm/dl (3.4-5.0); CALCIUM 9.2 mg/dl (8.5-10.1); CREATININE 0.82 mg/dl (0.60-1.20); POTASSIUM 3.8 mmol/L (3.5-5.1)
[2017-08-23 07:03] LABS: TOTAL PROTEIN 6.7 gm/dl (6.4-8.2)
[2017-08-23] MEDS ORDERED: AMLODIPINE BESYLATE 5 MG TAB PO ONE (07:15)
--- NOTE | 2017-08-23 07:16 | NUR ---
Dr. Petersen made aware of patients statement. Gave PO nitro tablet per MD order. 2L of oxygen applied per MD order. VSS obtained. EKG obtained. Report passed on to LEYLA Covington.
[2017-08-23 07:27] VITALS: BP 167/86; PULSE 68; TEMP 36.7; O2SAT 95
[2017-08-23] MEDS: ACETAMINOPHEN 325 MG TAB PO PRN (07:37)
[2017-08-23] MEDS: ALBUTEROL HFA INHALER 8.5 GM INH SCH ×2 (07:37→13:15)
[2017-08-23] MEDS: CARVEDILOL 3.125 MG TAB PO SCH (07:38)
--- NOTE | 2017-08-23 08:00 | NUR ---
A: Alert and oriented x4. VSS on room air. Chest pain resolved following nitro. Pt. reports headache, Tylenol given per pt. request. Denies chest pain or shortness of breath at this time. 2L O2 removed at this time with SpO2 95%. NSR on monitor. Planning for stress test today. at bedside. Plans to return home on discharge. Call sharp within reach. Continue to monitor.
--- NOTE | 2017-08-23 09:58 | Cardiology Follow-Up ---
Subjective General Date of Service: Aug 23, 2017. Chief Complaint: Chest discomfort Pt evaluation today including: conversation w/ patient, conversation w/ family , physical exam, chart review, lab review, review of studies, review of inpatient medication list History of Present Illness Patient seen and examined. at bedside. Nonradiating chest pressure without associated symptoms this morning around 6:30 AM. EKG obtained during the episode showed no acute changes. BP at that time was 162/88. She was given one sublingual nitroglycerin with "an instant headache," without improvement in the chest discomfort. Notes improvement in the discomfort 30 minutes "after the blood pressure med." August 22, 2017 TTE Interpretation Summary ([facility], Dr. Funes): The left ventricle is normal in size. There is borderline concentric left ventricular hypertrophy. Ejection Fraction = 55-60%. The right ventricular systolic function is normal. The left atrial size is normal. Right atrial size is normal. No significant valvular pathology. Allergies Coded Allergies: Morphine (Verified Allergy, Intermediate, GI SYMPTOMS, 08/21/17) Oxycodone (Verified Adverse Reaction, Intermediate, GI SYMPTOMS, 08/21/17) NAUSEA/VOMITING Codeine (Verified Adverse Reaction, Mild, NAUSEA & VOMITING, 08/21/17) Social History Hx Tobacco Use In Past Year?: No Hx Alcohol Use - Type And Amou: Yes (social- wine- not often ) Hx Substance Use - Type And Am: No Problem List Medical Problems: (1) Hypertensive urgency Status: Acute (2) Substernal chest pain Status: Acute Physical Exam Vital Signs Last Vital Signs Documentation Date Time Temp Pulse Resp B/P (MAP) Pulse Ox O2 Delivery O2 Flow Rate FiO2 08/23/17 07:27 36.7 68 18 167/86 (113) 95 Room Air Physical Exam Constitutional: Level of Distress: NAD Psychiatric: Mental Status: active & alert Orientation: to time, to place, to person Memory: recent memory normal, remote memory normal Head: normocephalic, atraumatic ENMT: nasal congestion Neck: pertinent finding (Normal JVP) Lungs: Auscultation: no wheezing, no rales/crackles, no rhonchi, deminished air movement, decreased breath sounds Cardiovascular: Heart Auscultation: RRR, normal S1, normal S2, no murmurs, no rubs, no gallops Peripheral Pulses: Dorsalis Pedis Pulse: normal on the left, normal on the right Abdomen: Inspection & Palpation: soft Extremities: no cyanosis, no edema, no clubbing Neurologic: Cranial Nerves: grossly intact Assessment and Plan Assessment and Plan 62 year old female admitted with chest heaviness/discomfort. Marked hypertension (205/129) observed on presentation D-dimer negative. CXR without acute cardiopulmonary process. EKG's without acute change Troponin negative x 3 Echo with normal wall motion, borderline concentric LVH, EF 55-60%, normal RV function, and no significant valvular pathology. RECOMMENDATIONS: Refer for exercise stress echocardiography Continue the antihypertensive regimen prescribed this admission (Coreg, amlodipine) ? Trial of an histamine H2 antagonist such as ranitidine Recommend discontinuation of Mobic Risk factor and life style modification. CARDIOLOGY ATTENDING ADDENDUM: The patient was seen and personally examined. Agree with Kristian Hickey PA-C's findings and plans as documented above. I saw the patient in the stress lab. She exercised well and had a negative study. I believe she can be d/c to outpatient follow-up. Laboratory Results Last 24 Hours Test 08/23/17 05:56 08/23/17 07:19 White Blood Count 6.39 K/uL Red Blood Count 4.88 M/uL Hemoglobin 14.2 g/dL Hematocrit 43.2 % Mean Corpuscular Volume 88.5 fL Mean Corpuscular Hemoglobin 29.1 pg Mean Corpuscular Hemoglobin Concent 32.9 g/dl Platelet Count 206 K/uL Mean Platelet Volume 10.3 fL Neutrophils (%) (Auto) 53.1 % Lymphocytes (%) (Auto) 36.3 % Monocytes (%) (Auto) 8.6 % Eosinophils (%) (Auto) 1.1 % Basophils (%) (Auto) 0.6 % Neutrophils # (Auto) 3.39 K/uL Lymphocytes # (Auto) 2.32 K/uL Monocytes # (Auto) 0.55 K/uL Eosinophils # (Auto) 0.07 K/uL Basophils # (Auto) 0.04 K/uL RDW Standard Deviation 47.9 fL RDW Coefficient of Variation 14.9 % Immature Granulocyte % (Auto) 0.3 % Immature Granulocyte # (Auto) 0.02 K/uL Sodium Level 140 mmol/L Potassium Level 3.8 mmol/L Chloride Level 104 mmol/L Carbon Dioxide Level 30 mmol/L Anion Gap 6.0 mmol/L Blood Urea Nitrogen 19 mg/dl Creatinine 0.82 mg/dl Est Creatinine Clear Calc Drug Dose 77.3 ml/min Estimated GFR () 87.6 Estimated GFR (Non- 75.6 BUN/Creatinine Ratio 23.7 Random Glucose 88 mg/dl Calcium Level 9.2 mg/dl Total Bilirubin 0.5 mg/dl Aspartate Amino Transf (AST/SGOT) 10 U/L Alanine Aminotransferase (ALT/SGPT) 62 U/L Alkaline Phosphatase 73 U/L Total Protein 6.7 gm/dl Albumin 3.6 gm/dl Globulin 3.1 gm/dl Albumin/Globulin Ratio 1.2 Troponin I < 0.015 ng/ml
--- NOTE | 2017-08-23 11:01 | DIAGNOSTIC IMAGING REPORT ---
CHEST 2 VIEWS ROUTINE HISTORY: chest discomfort COMPARISON: Chest 08/21/2017. FINDINGS: No focal lung consolidations to suggest pneumonia. No evidence for pulmonary edema. The heart remains top normal in size. No pleural effusions. No pneumothorax. Small right perihilar nodule likely represents a calcified granuloma. This remains unchanged. IMPRESSION: No significant change compared to the prior study. No acute process. Electronically signed by: Yan Redd M.D. 08/23/2017 10:59 AM Dictated Date/Time: 08/23/2017 10:57 AM
--- NOTE | 2017-08-23 12:00 | NUR ---
A: Assessment unchanged. Denies chest pain, shortness of breath or pain at this time. Headache is resolved. remains at bedside. Call sharp within reach. Continue to monitor.
[2017-08-23] MEDS ORDERED: CRG3125 PO (13:43)
[2017-08-23] MEDS ORDERED: LVQ500 PO (13:43)
--- NOTE | 2017-08-23 13:48 | Progress Note ---
Internal Med Progress Note Date of Service: Aug 23, 2017. Provider Documentation: SUBJECTIVE: Patient had pressure of chest this morning. Negative follow up troponin. Negative Stress test. Patient re-examined and no further chest discomfort OBJECTIVE: Physical Exam General: no acute distress Lungs: good air entry, no wheezing Heart: Regular rate Abdomen: soft, nontender, + bowel sounds Extremities: no edema ASSESSMENT & PLAN: Patient has troponins negative x 4 Echocardiogram results * The left ventricle is normal in size. * There is borderline concentric left ventricular hypertrophy. * Ejection Fraction = 55-60%. * The right ventricular systolic function is normal. * The left atrial size is normal. * Right atrial size is normal. * No significant valvular pathology. Procedure Details * A complete two-dimensional transthoracic echocardiogram was performed (2D, M-mode, Doppler and color flow Doppler). Left Ventricle * The left ventricle is normal in size. * There is borderline concentric left ventricular hypertrophy. * Left ventricular systolic function is normal. * Ejection Fraction = 55-60%. * The left ventricular wall motion is normal. Right Ventricle * The right ventricle is normal size. * The right ventricular systolic function is normal. Atria * The left atrial size is normal. * Right atrial size is normal. * There is no evidence of atrial septal defect, but resolution does not allow assessment for a patent foramen ovale. Mitral Valve * The mitral valve anatomy is normal. * Significant mitral regurgitation is absent. Tricuspid Valve * The tricuspid valve anatomy is normal. * Significant tricuspid regurgitation is absent. Aortic Valve * The aortic valve is tricuspid. The leaflet thickness if normal. There is no aortic stenosis, and no significant insufficiency. * No hemodynamically significant valvular aortic stenosis. * There is no significant aortic regurgitation. Great Vessels * The aortic root and proximal ascending aorta are normal sized. Pericardium/Pleural * There is no pericardial effusion. Stress Echocardiogram negative as per Dr. Funes New prescription of Carvedilol and Amlodipine for hypertension Ranitidine as a new prescription if gastric reflux contributes to chest pressure Patient has bronchitis with symptoms from 2 to 3 weeks ago. Chest X ray has been clear. patient received Levaquin in the hospital. patient to be discharged with 6 days of Levaquin 500mg po daily to finish 1 week course of respiratory antibiotics Discharge diagnosis: Atypical Chest pain, chest discomfort likely from Bronchitis, Hypertension Discharge Follow up 08/29/2017 11:20 AM Umu Krueger DO [facility] 09/11/2017 11:00 AM Rohan Funes DO Cardiology, [facility] Vital Signs: Date Time Temp Pulse Resp B/P (MAP) Pulse Ox O2 Delivery O2 Flow Rate FiO2 08/23/17 08:00 Room Air 08/23/17 07:27 36.7 68 18 167/86 (113) 95 Room Air 08/23/17 06:48 36.5 67 20 162/88 (112) 91 Room Air 08/23/17 05:04 36.7 75 18 122/82 (95) 98 Room Air 08/23/17 04:00 Room Air 08/23/17 00:00 Room Air 08/22/17 22:58 36.5 64 18 136/84 (101) 96 Room Air 08/22/17 21:24 76 149/84 (105) 08/22/17 20:00 Room Air 08/22/17 19:37 36.7 71 18 138/84 (102) 93 Room Air 08/22/17 16:00 Room Air 08/22/17 15:23 36.7 73 16 153/88 (109) 93 Room Air Lab Results: Results Past 24 Hours Test 08/23/17 05:56 08/23/17 07:19 Range/Units White Blood Count 6.39 4.8-10.8 K/uL Red Blood Count 4.88 4.2-5.4 M/uL Hemoglobin 14.2 12.0-16.0 g/dL Hematocrit 43.2 37-47 % Mean Corpuscular Volume 88.5 80-100 fL Mean Corpuscular Hemoglobin 29.1 25-34 pg Mean Corpuscular Hemoglobin Concent 32.9 32-36 g/dl Platelet Count 206 130-400 K/uL Mean Platelet Volume 10.3 7.4-10.4 fL Neutrophils (%) (Auto) 53.1 % Lymphocytes (%) (Auto) 36.3 % Monocytes (%) (Auto) 8.6 % Eosinophils (%) (Auto) 1.1 % Basophils (%) (Auto) 0.6 % Neutrophils # (Auto) 3.39 1.4-6.5 K/uL Lymphocytes # (Auto) 2.32 1.2-3.4 K/uL Monocytes # (Auto) 0.55 0.11-0.59 K/uL Eosinophils # (Auto) 0.07 0-0.5 K/uL Basophils # (Auto) 0.04 0-0.2 K/uL RDW Standard Deviation 47.9 36.4-46.3 fL RDW Coefficient of Variation 14.9 11.5-14.5 % Immature Granulocyte % (Auto) 0.3 % Immature Granulocyte # (Auto) 0.02 0.00-0.02 K/uL Sodium Level 140 136-145 mmol/L Potassium Level 3.8 3.5-5.1 mmol/L Chloride Level 104 98-107 mmol/L Carbon Dioxide Level 30 21-32 mmol/L Anion Gap 6.0 3-11 mmol/L Blood Urea Nitrogen 19 7-18 mg/dl Creatinine 0.82 0.60-1.20 mg/dl Est Creatinine Clear Calc Drug Dose 77.3 ml/min Estimated GFR () 87.6 Estimated GFR (Non- 75.6 BUN/Creatinine Ratio 23.7 10-20 Random Glucose 88 70-99 mg/dl Calcium Level 9.2 8.5-10.1 mg/dl Total Bilirubin 0.5 0.2-1 mg/dl Aspartate Amino Transf (AST/SGOT) 10 15-37 U/L Alanine Aminotransferase (ALT/SGPT) 62 12-78 U/L Alkaline Phosphatase 73 45-117 U/L Total Protein 6.7 6.4-8.2 gm/dl Albumin 3.6 3.4-5.0 gm/dl Globulin 3.1 2.5-4.0 gm/dl Albumin/Globulin Ratio 1.2 0.9-2 Troponin I < 0.015 0-0.045 ng/ml
[2017-08-23] MEDS ORDERED: AMLO5TAB3 PO (13:49)
[2017-08-23] MEDS ORDERED: RANI150T85 PO (13:49)
--- NOTE | 2017-08-23 13:56 | Discharge Instructions ---
Discharge Instructions Date of Service Aug 23, 2017. Admission Reason for Admission: Substernal Chest Pain Discharge Discharge Diagnosis / Problem: Atypical Chest pain, chest discomfort likely from Bronchitis, Hypertension Discharge Goals Goal(s): Decrease discomfort, Improve function Activity Recommendations Activity Limitations: resume your previous activity Shower/Bathe: no limitations . Instructions / Follow-Up Instructions / Follow-Up Patient has troponins negative x 4 Echocardiogram results * The left ventricle is normal in size. * There is borderline concentric left ventricular hypertrophy. * Ejection Fraction = 55-60%. * The right ventricular systolic function is normal. * The left atrial size is normal. * Right atrial size is normal. * No significant valvular pathology. Procedure Details * A complete two-dimensional transthoracic echocardiogram was performed (2D, M-mode, Doppler and color flow Doppler). Left Ventricle * The left ventricle is normal in size. * There is borderline concentric left ventricular hypertrophy. * Left ventricular systolic function is normal. * Ejection Fraction = 55-60%. * The left ventricular wall motion is normal. Right Ventricle * The right ventricle is normal size. * The right ventricular systolic function is normal. Atria * The left atrial size is normal. * Right atrial size is normal. * There is no evidence of atrial septal defect, but resolution does not allow assessment for a patent foramen ovale. Mitral Valve * The mitral valve anatomy is normal. * Significant mitral regurgitation is absent. Tricuspid Valve * The tricuspid valve anatomy is normal. * Significant tricuspid regurgitation is absent. Aortic Valve * The aortic valve is tricuspid. The leaflet thickness if normal. There is no aortic stenosis, and no significant insufficiency. * No hemodynamically significant valvular aortic stenosis. * There is no significant aortic regurgitation. Great Vessels * The aortic root and proximal ascending aorta are normal sized. Pericardium/Pleural * There is no pericardial effusion. Stress Echocardiogram negative as per Dr. Funes New prescription of Carvedilol and Amlodipine for hypertension Ranitidine as a new prescription if gastric reflux contributes to chest pressure Patient has bronchitis with symptoms from 2 to 3 weeks ago. Chest X ray has been clear. patient received Levaquin in the hospital. patient to be discharged with 6 days of Levaquin 500mg po daily to finish 1 week course of respiratory antibiotics Discharge diagnosis: Atypical Chest pain, chest discomfort likely from Bronchitis, Hypertension Discharge Follow up 08/29/2017 11:20 AM Umu Krueger DO [facility] 09/11/2017 11:00 AM Rohan Funes, DO Cardiology, [facility] Current Hospital Diet Patient's current hospital diet: AHA Diet (Heart Healthy) Discharge Diet Recommended Diet: AHA Diet (Heart Healthy) Pending Studies Studies pending at discharge: no Laboratory Results 08/23/17 05:56 Red Blood Count 4.88, Mean Corpuscular Volume 88.5, Mean Corpuscular Hemoglobin 29.1, Mean Corpuscular Hemoglobin Concent 32.9, Mean Platelet Volume 10.3, Neutrophils (%) (Auto) 53.1, Lymphocytes (%) (Auto) 36.3, Monocytes (%) (Auto) 8.6, Eosinophils (%) (Auto) 1.1, Basophils (%) (Auto) 0.6, Neutrophils # (Auto) 3.39, Lymphocytes # (Auto) 2.32, Monocytes # (Auto) 0.55, Eosinophils # (Auto) 0.07, Basophils # (Auto) 0.04 08/23/17 05:56 Test 08/21/17 21:25 08/21/17 21:29 08/21/17 21:34 08/22/17 03:20 Magnesium Level 2.4 mg/dl (1.8-2.4) Direct Bilirubin 0.1 mg/dl (0-0.2) Bedside D-Dimer 222 ng/mlFEU (0-450) Bedside Troponin I < 0.030 ng/ml (0-0.045) Urine Color YELLOW Urine Appearance CLEAR (CLEAR) Urine pH 6.0 (4.5-7.5) Urine Specific [place] 1.013 (1.000-1.030) Urine Protein NEG (NEG) Urine Glucose (UA) NEG (NEG) Urine Ketones NEG (NEG) Urine Occult Blood NEG (NEG) Urine Nitrite NEG (NEG) Urine Bilirubin NEG (NEG) Urine Urobilinogen NEG (NEG) Urine Leukocyte Esterase TRACE (NEG) Urine WBC (Auto) 1-5 /hpf (0-5) Urine RBC (Auto) 0-4 /hpf (0-4) Urine Hyaline Casts (Auto) 0 /lpf (0-5) Urine Epithelial Cells (Auto) 10-20 /lpf (0-5) Urine Bacteria (Auto) NEG (NEG) Prothrombin Time 10.3 SECONDS (9.0-12.0) Prothromb Time International Ratio 1.0 (0.9-1.1) Test 08/22/17 09:32 08/23/17 05:56 08/23/17 07:19 Total Creatine Kinase 46 U/L (26-192) Creatine Kinase MB 2.0 ng/ml (0.5-3.6) Creatine Kinase MB Ratio 4.3 (0-3.0) White Blood Count 6.39 K/uL (4.8-10.8) Red Blood Count 4.88 M/uL (4.2-5.4) Hemoglobin 14.2 g/dL (12.0-16.0) Hematocrit 43.2 % (37-47) Mean Corpuscular Volume 88.5 fL (80-100) Mean Corpuscular Hemoglobin 29.1 pg (25-34) Mean Corpuscular Hemoglobin Concent 32.9 g/dl (32-36) Platelet Count 206 K/uL (130-400) Mean Platelet Volume 10.3 fL (7.4-10.4) Neutrophils (%) (Auto) 53.1 % Lymphocytes (%) (Auto) 36.3 % Monocytes (%) (Auto) 8.6 % Eosinophils (%) (Auto) 1.1 % Basophils (%) (Auto) 0.6 % Neutrophils # (Auto) 3.39 K/uL (1.4-6.5) Lymphocytes # (Auto) 2.32 K/uL (1.2-3.4) Monocytes # (Auto) 0.55 K/uL (0.11-0.59) Eosinophils # (Auto) 0.07 K/uL (0-0.5) Basophils # (Auto) 0.04 K/uL (0-0.2) RDW Standard Deviation 47.9 fL (36.4-46.3) RDW Coefficient of Variation 14.9 % (11.5-14.5) Immature Granulocyte % (Auto) 0.3 % Immature Granulocyte # (Auto) 0.02 K/uL (0.00-0.02) Anion Gap 6.0 mmol/L (3-11) Est Creatinine Clear Calc Drug Dose 77.3 ml/min Estimated GFR () 87.6 Estimated GFR (Non- 75.6 BUN/Creatinine Ratio 23.7 (10-20) Calcium Level 9.2 mg/dl (8.5-10.1) Total Bilirubin 0.5 mg/dl (0.2-1) Aspartate Amino Transf (AST/SGOT) 10 U/L (15-37) Alanine Aminotransferase (ALT/SGPT) 62 U/L (12-78) Alkaline Phosphatase 73 U/L (45-117) Total Protein 6.7 gm/dl (6.4-8.2) Albumin 3.6 gm/dl (3.4-5.0) Globulin 3.1 gm/dl (2.5-4.0) Albumin/Globulin Ratio 1.2 (0.9-2) Troponin I < 0.015 ng/ml (0-0.045) Medical Emergencies . Who to Call and When: Medical Emergencies: If at any time you feel your situation is an emergency, please call 911 immediately. . Non-Emergent Contact Non-Emergency issues call your: Primary Care Provider, Second Floor Operator Call Non-Emergent contact if: your pain is not controlled, your pain is worsening, your pain is unusual for you, your pain is concerning you . . "Provider Documentation" section prepared by Riki Kramer. . VTE Core Measure Inpt VTE Proph given/why not?: SCD's
--- NOTE | 2017-08-23 14:03 | Discharge Summary ---
Discharge Summary Date of Service Aug 23, 2017. Discharge Summary Admission Date: Aug 21, 2017 at 23:48 Discharge Date: Aug 23, 2017 Principal Diagnosis: Atypical Chest pain, chest discomfort likely from Bronchitis, Hypertension Consultations: cardiology Medication Reconciliation New Medications: Amlodipine (Norvasc) 5 Mg Tab 5 MG PO DAILY for 30 Days, #30 TAB Ranitidine (Zantac) 150 Mg Tab 150 MG PO DAILY for 30 Days, #30 TAB Carvedilol (Carvedilol) 3.125 Mg Tab 3.125 MG PO BID for 30 Days, #60 TAB Levofloxacin (Levofloxacin) 500 Mg Tab 500 MG PO DAILY@2100 for 6 Days, #6 TAB Continued Medications: Acetaminophen (Tylenol) 325 Mg Tab 650 MG PO Q6 PRN for Pain, TAB Benzonatate (Tessalon Perles) 100 Mg Cap 100 MG PO DIRECTED PRN for Cough, CAP Calcium Carbonate (Tums) 500 Mg Chew 2 TABLETS PO DAILY Docusate Sodium (Stool Softener) 100 Mg Cap 100 MG PO BID PRN for Constipation Multiple Vitamins W/ Minerals (Centrum Silver Adult 50+) 1 Tab Tab 1 TAB PO DAILY Prednisone (Prednisone) 20 Mg Tab Unknown Dose PO DAILY TAPER DOSE STARTED 08/20/17 FOR 5 DAYS. Discontinued Medications: Hydrocodone W/ Homatropine (Hycodan 5/1.5MG 5 Ml) 1 Syp Syp Unknown Dose PO DIRECTED PRN for Cough, #200 ML "TO TAKE MOSTLY AT BEDTIME". Meloxicam (Meloxicam) 15 Mg Tab 15 MG PO DAILY Admission Information HPI (per Admitting provider): 62 year old female with history of Uterine CA, and other problems noted below presenting with chest pain starting his afternoon. Patient follows with Dr. Benavidez for PCP. Patient has been having 2-3 weeks history of productive cough and progressive dyspnea with exertion. She saw Dr. Benavidez yesterday, found to have wheezing, told to have bronchitis and was given Prednisone, Hycodan and Tessalon pearles which patient started to take yesterday with minimal relief of symptoms. 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 She went to the [facility] and patient was directed to come to the ER. At the ER, patient's systolic bp was in the 170s. EKG no signs of ischemia CM x 1 negative CXR no pneumonia. She was given Nitro SL x 2 with relief of chest pain. On my exam, patient seen resting, comfortable. States chest pain is only 1/10, denies other symptoms. Physical Exam (per Admitting): General Appearance: WD/WN, no apparent distress Head: normocephalic, atraumatic Eyes: normal inspection, PERRL, EOMI, sclerae normal ENT: normal ENT inspection, hearing grossly normal, pharynx normal Neck: supple, no adenopathy, thyroid normal, no JVD, trachea midline Respiratory/Chest: chest non-tender, lungs clear, normal breath sounds, no respiratory distress, no accessory muscle use Cardiovascular: regular rate, rhythm, no edema, no JVD, no murmur, normal peripheral pulses Abdomen/GI: normal bowel sounds, non tender, soft Back: normal inspection, no CVA tenderness Extremities/Musculoskelatal: normal inspection, no calf tenderness, normal capillary refill, no pedal edema Neurologic/Psych: cell plasterer II-XII nml as tested, no motor/sensory deficits, alert , normal mood/affect, oriented x 3 Skin: normal color, warm/dry Lymphatic: no adenopathy Hospital Course Patient has troponins negative x 4 Echocardiogram results * The left ventricle is normal in size. * There is borderline concentric left ventricular hypertrophy. * Ejection Fraction = 55-60%. * The right ventricular systolic function is normal. * The left atrial size is normal. * Right atrial size is normal. * No significant valvular pathology. Procedure Details * A complete two-dimensional transthoracic echocardiogram was performed (2D, M-mode, Doppler and color flow Doppler). Left Ventricle * The left ventricle is normal in size. * There is borderline concentric left ventricular hypertrophy. * Left ventricular systolic function is normal. * Ejection Fraction = 55-60%. * The left ventricular wall motion is normal. Right Ventricle * The right ventricle is normal size. * The right ventricular systolic function is normal. Atria * The left atrial size is normal. * Right atrial size is normal. * There is no evidence of atrial septal defect, but resolution does not allow assessment for a patent foramen ovale. Mitral Valve * The mitral valve anatomy is normal. * Significant mitral regurgitation is absent. Tricuspid Valve * The tricuspid valve anatomy is normal. * Significant tricuspid regurgitation is absent. Aortic Valve * The aortic valve is tricuspid. The leaflet thickness if normal. There is no aortic stenosis, and no significant insufficiency. * No hemodynamically significant valvular aortic stenosis. * There is no significant aortic regurgitation. Great Vessels * The aortic root and proximal ascending aorta are normal sized. Pericardium/Pleural * There is no pericardial effusion. Stress Echocardiogram negative as per Dr. Funes New prescription of Carvedilol and Amlodipine for hypertension Ranitidine as a new prescription if gastric reflux contributes to chest pressure Patient has bronchitis with symptoms from 2 to 3 weeks ago. Chest X ray has been clear. patient received Levaquin in the hospital. patient to be discharged with 6 days of Levaquin 500mg po daily to finish 1 week course of respiratory antibiotics Discharge diagnosis: Atypical Chest pain, chest discomfort likely from Bronchitis, Hypertension Discharge Follow up 08/29/2017 11:20 AM Umu Krueger DO [facility] 09/11/2017 11:00 AM Rohan Funes DO Cardiology, [facility] Total time spent on discharge = 60 minutes This includes examination of the patient, discharge planning, medication reconciliation, and communication with other providers. Discharge Instructions see above
[2017-08-23 14:27] VITALS: BP 167/86; PULSE 68; TEMP 36.7; O2SAT 95
--- NOTE | 2017-08-23 15:16 | NUR ---
A: MD ordered discharge. Discharge teaching completed, all questions answered. Prescriptions, discharge instructions and all belongings provided to pt. IV site discontinued, catheter intact. Monitor removed and returned to PCU. at bedside to transport pt. home. Pt. wishes to walk to main entrance for discharge.
--- NOTE | 2017-08-23 17:01 | EXERCISE STRESS ECHO ---
*NOTICE TO RECEIVING LIBERTARIAN AGENCY This information is strictly Confidential and protected under [place] law. [place] law prohibits you from making any further disclosure of this information unless further disclosure is expressly permitted by the written consent of the person to whom it pertains or is authorized by law. A general authorization for the release of medical or other information is not sufficient for this purpose. Hospital accepts no responsibility if the information is made available to any other person, INCLUDING THE PATIENT. Interpretation Summary * Name: CHUCK GARDUNO Study Date: 08/23/2017 10:50 AM BP: 152/93 mmHg * Patient Location: [facility]\S\N280\S\1 HR: 67 * : 1955 (M/d/yyyy) Gender: Female Height: 65 in * Age: 62 yrs Ethnicity: [place] Weight: 205 lb * Ordering Physician: Riki Kramer * Referring Physician: Self, Referred * Performed By: Syeda Carreno RCS * * Reason For Study: CHEST PAIN * BSA: 2.0 m2 * STRESS STUDY: Normal exercise stress echocardiogram. No echocardiographic or ECG evidence of myocardial ischemia having achieved heart rate adequate for diagnostic purposes. * -- Conclusions -- * STRESS STUDY: Normal exercise stress echocardiogram. No echocardiographic or ECG evidence of myocardial ischemia having achieved heart rate adequate for diagnostic purposes. Procedure Details * ECHOEX, CPT #93414 Stress Parameters * Normal baseline electrocardiogram. * Stress ECG: No ST changes. No arrhythmias. * The stress ECG response was normal * The stress portion of this study was personally supervised by the undersigned interpreting physician. * Rest heart rate was '67' BPM. * Rest blood pressure was '152/93' * Maximum heart rate achieved was 134 bpm. * Maximum heart rate was 85 % of maximum age-predicted heart rate. * Maximum blood pressure was '190/86' * Total exercise time was '6:35' * Maximum exercise MET level achieved was '7.8' METS * Maximum treadmill speed was '3.4' miles per hour. * Maximum treadmill elevation was '14'% grade. * Exercise was terminated due to 'fatigue after achieving target heart rate'
[2018-03-18] MEDS ORDERED: CARV3.122 PO (07:52)
[2018-03-18] MEDS ORDERED: CELE100C PO (07:52)
[2018-03-18] MEDS ORDERED: AMLO5TAB3 PO (07:52)
[2018-04-25] MEDS ORDERED: ULT50X PO (09:03)
[2018-04-25] MEDS ORDERED: CLB200 PO (09:03)
[2018-04-25] MEDS ORDERED: ASPI-461 PO (09:03)
== END 2017-08-23 15:05 | disposition home or self-care (01) ==
LOC: C.EDB 20:21 → C.MED 23:48 → ENRESERV 08-22 00:16 → EDBEDREQ 08-22 00:58
PROVIDERS: ADMIT Internal Medicine; ATTEND Hospitalist
DX: R07.89 Other chest pain (principal); J40 Bronchitis, not specified as acute or chronic; I10 Essential (primary) hypertension; Z85.42 Personal history of malignant neoplasm of other parts of uterus; Z90.710 Acquired absence of both cervix and uterus; Z82.49 Family history of ischemic heart disease and other diseases of the circulatory system; Z98.1 Arthrodesis status; Z96.651 Presence of right artificial knee joint; Z80.42 Family history of malignant neoplasm of prostate

== ENCOUNTER → 2017-10-03 | Outpatient (CLI) | payer BC ==
[~2017-10-03] MED LIST changes: -ASPI325T39 PO; +BENZ100C84 PO; -BISA-16 PO; +CRG3125 PO; +DOCU100C PO; -HYDR-5688 PO; +LVQ500 PO; -MULT-513 PO; +MULT-845 PO; -ONDA8TAB12 PO; -PHEN1SUP PR; +PRED20TA PO; -STLS PO; -TAPE1TAB9 PO; -WHEATAB2 PO
--- NOTE | 2017-10-03 14:30 | MAMMOGRAPHY REPORT ---
BILATERAL DIGITAL SCREENING MAMMOGRAM TOMOSYNTHESIS WITH CAD: 10/03/2017 CLINICAL HISTORY: Routine screening. TECHNIQUE: Breast tomosynthesis in addition to standard 2D mammography was performed. Current study was also evaluated with a Computer Aided Detection (CAD) system. COMPARISON: Comparison is made to exams dated: 10/01/2016 mammogram, 09/28/2015 mammogram, 09/22/2014 dustin mogram, 09/21/2013 mammogram, 09/15/2012 mammogram, and 09/11/2011 mammogram - [facility]. BREAST COMPOSITION: There are scattered areas of fibroglandular density in both breasts. FINDINGS: No suspicious masses, calcifications, or areas of architectural distortion are noted in ei ther breast. There has been no significant interval change compared to prior exams. IMPRESSION: ACR BI-RADS CATEGORY 1: NEGATIVE There is no mammographic evidence of malignancy. A 1 year screening mammogram is recommended. The pa tient will receive written notification of the results. Approximately 10% of breast cancers are not detected with mammography. A negative mammographic report should not delay biopsy if a clinically suggestive mass is present. Concha Elizabeth M.D. ah/:10/03/2017 09:20:39 Store Warehouse Associate: Gavin ALATORRE(Elvie)(M), [facility] letter sent: Normal 1/2 BI-RADS Code: ACR BI-RADS Category 1: Negative
== END | disposition home or self-care (01) ==
LOC: C.MAMM 08:28
PROVIDERS: ATTEND Family Medicine
DX: Z12.31 Encounter for screening mammogram for malignant neoplasm of breast (principal)

== ENCOUNTER → 2018-03-21 | Outpatient (CLI) | payer BC ==
[~2018-03-21] MED LIST changes: +AMLO5TAB3 PO; -BENZ100C84 PO; +CARV3.122 PO; +CELE100C PO; -CRG3125 PO; -DOCU100C PO; -LVQ500 PO; -PRED20TA PO
[2018-03-21 14:28] LABS: BASO % 0.7 %; BASO ABS # 0.04 K/uL (0-0.2); EOS % 3.3 %; EOS ABS # 0.18 K/uL (0-0.5); HEMATOCRIT 42.8 % (37-47); HEMOGLOBIN 14.1 g/dL (12.0-16.0); IG# 0.01 K/uL (0.00-0.02); LYMPH % 29.5 %; LYMPH ABS # 1.62 K/uL (1.2-3.4); MEAN CELL VOLUME 87.3 fL (80-100); MEAN CORPUSCULAR HEMOGLOBIN 28.8 pg (25-34); MEAN CORPUSCULAR HGB CONC 32.9 g/dl (32-36); MEAN PLATELET VOLUME 10.6 fL (7.4-10.4); MONO % 4.4 %; MONO ABS # 0.24 K/uL (0.11-0.59); NEUT % 61.9 %; PLATELET COUNT 217 K/uL (130-400); RED CELL DISTRIBUTION WIDTH CV 14.5 % (11.5-14.5); RED CELL DISTRIBUTION WIDTH SD 46.4 fL (36.4-46.3); WHITE BLOOD COUNT 5.49 K/uL (4.8-10.8)
[2018-03-21 14:38] LABS: PTT PATIENT 25.4 SECONDS (21.0-31.0)
[2018-03-21 14:53] LABS: ALBUMIN 3.9 gm/dl (3.4-5.0); BLOOD UREA NITROGEN 16 mg/dl (7-18); CALCIUM 9.1 mg/dl (8.5-10.1); CARBON DIOXIDE 29 mmol/L (21-32); CREATININE 0.83 mg/dl (0.60-1.20); GLUCOSE 111 mg/dl (70-99); SODIUM 140 mmol/L (136-145)
[2018-03-22 07:48] LABS: HEMOGLOBIN A1C 5.8 % (4.5-5.6)
== END | disposition home or self-care (01) ==
LOC: C.RAD 13:20
PROVIDERS: ATTEND Orthopaedic Surgery Sports Medicine
DX: Z01.812 Encounter for preprocedural laboratory examination (principal)

== ENCOUNTER 2025-07-29 17:32 | Inpatient (IN) ==
--- NOTE | 2025-07-29 17:45 | Emergency Department Note ---
Impression & Plan LUQ abdominal pain, Acute cholecystitis, Elevated liver enzymes ED Provider Note NAME: CHUCK GARDUNO AGE: 70 SEX: F : 1955 ARRIVES VIA: Walk-In INFORMANT: [Patient] ED PROVIDER(S): [Mark Goldsmith MD] CHIEF COMPLAINT: Flank pain, abdominal pain HISTORY OF PRESENT ILLNESS: The patient is a 70-year-old female who states that around 8 hours ago, she began to notice pain in the left upper quadrant. The pain has been persistent. No real back pain or pain radiation. She went to urgent care at [facility] and had an ECG that returned unremarkable. She did vomit. She was sent for evaluation. There has been no fever, no cough or congestion or respiratory complaints. She is not short of breath. No urinary complaints. She has not suffered trauma. She cannot recall having pain like this previously. PMHx/PSHx/Social Hx: See Below PHYSICAL EXAM: GENERAL: Patient is in no acute distress. HEENT: No acute trauma, normocephalic atraumatic, mucous membranes moist, no nasal congestion. NECK: No stridor, no adenopathy, no meningismus, trachea is midline. LUNGS: Clear to auscultation bilaterally, no wheeze, no rhonchi, breath sounds equal. HEART: Without murmurs gallops or rubs, regular rate and rhythm. ABDOMEN: Soft, tender in the left upper quadrant, no distention. EXTREMITIES: No cyanosis, full range of motion of all the joints without pain or difficulty. NEUROLOGIC: Oriented x 3, no acute motor or sensory deficits, no focal weakness. SKIN: No jaundice, no diaphoresis. Back: No flank discomfort to percussion. DIFFERENTIAL DIAGNOSIS: Renal colic, pyelonephritis, renal or splenic injury, diverticulitis, among others. EMERGENCY DEPARTMENT PROCEDURES: MEDICAL DECISION MAKING: There is no leukocytosis or concerning anemia. There is a normal platelet count. No bandemia. No renal failure or significant electrolyte abnormality. There were significantly elevated liver enzymes. No evidence for pancreatitis. Chest x-ray did not show any pneumonia or free air. Abdominal and pelvis CT suggested acute cholecystitis. No bowel obstruction. Gallbladder ultrasound showed evidence for early acute cholecystitis with some bile duct dilatation. On exam, the patient complained of pain in the left upper quadrant. She was not toxic, she was not febrile. The patient was given IV Tylenol, IV Toradol, IV Zosyn, IV Zofran and 1.5 L of IV saline. The patient does feel improved. The patient appears to have acute cholecystitis causing her trouble. This was not expected as she complained of pain in the left upper quadrant. I did speak with GI, the patient is safe for admission to our hospital. If an ERCP is needed, this can be performed tomorrow. I did speak with the patient and case management, the on-call hospitalist was consulted. Prior/Outside records/notes reviewed: None ECG per my interpretation: Indication was abdominal pain. The ECG shows a normal sinus rhythm with some LVH. The rate is 74. There is no acute ST elevation, no PVCs. There is an incomplete right bundle branch block. QTc is 452. Continuous Cardiac Monitoring per my interpretation: An order was placed for continuous cardiac monitoring. The monitor shows a rate of 74 with normal sinus rhythm. Imaging/x-ray results per my interpretation: Chest x-ray shows some possible atelectasis at the left base, there is no focal infiltrate, no pneumothorax. No free air. Chronic Medical/Social conditions affecting care: Advanced age. Care/Management discussed with: On-call GI-Dr. Collado. Case management and the on-call hospitalist. Level of care consideration(s): After review of the information above and other included data: --I believe the patient requires escalation of care to admission DISPOSITION: Admission Past Med/Surg History Problem List Elevated liver enzymes (Acute) Acute cholecystitis (Acute) LUQ abdominal pain (Acute) History of carpal tunnel surgery of right wrist (Chronic) H/O: (Chronic) H/O colonoscopy (Chronic) S/P KENIA-BSO (total abdominal hysterectomy and bilateral salpingo-oophorectomy) (Chronic) "secondary to stage 1 gr1 endometrial Ca 01/28/12" History of lumbar laminectomy for spinal cord decompression (Chronic) " x 2 Dr. Cobian" History of total right knee replacement (TKR) (Chronic) "Dr. Haji 02/24/14" Obesity (BMI 30-39.9) (Chronic) Prediabetes (Chronic) Generalized osteoarthritis (Chronic) Left knee DJD (Chronic) HTN (hypertension) (Chronic) DJD (degenerative joint disease) of knee (Acute 02/24/14) Medical History Generalized osteoarthritis Sleep apnea CPAP-compliant Prediabetes metformin HTN (hypertension) controlled, stable per pt History of uterine cancer Surgical History Hx of colonoscopy History of lumbar laminectomy for spinal cord decompression x2 2007, 2009 - Dr. Cobian History of total bilateral knee replacement (TKR) S/P KENIA-BSO (total abdominal hysterectomy and bilateral salpingo-oophorectomy) due to uterine cancer History of carpal tunnel release of both wrists Hx of section (1985) Social History Smoking Status: Never smoker Second Hand Exposure: No; Do You Dip or Chew Tobacco: No; Hx Alcohol Use: Yes Hx Substance Use: No Preferred Language: German Communication Ability: Effective Medication Coordinator Required: No Beliefs That Will Affect Care: None Current Living Situation: Spouse Feels Safe at Home: Yes Assistive Devices: CPAP and Glasses Allergies Allergies Allergy/AdvReac Type Severity Reaction Status Date / Time codeine AdvReac Intermediate NAUSEA & Verified 07/29/25 18:49 VOMITING morphine AdvReac Intermediate GI SYMPTOMS Verified 07/29/25 18:49 oxycodone AdvReac Intermediate GI SYMPTOMS Verified 07/29/25 18:49 Home Meds Home Medications Medication Instructions Recorded Confirmed carvedilol 6.25 mg tablet 6.25 mg PO BID 05/05/24 07/29/25 celecoxib 100 mg capsule (Celebrex) 100 mg PO BID 05/05/24 07/29/25 duloxetine 60 mg capsule,delayed 60 mg PO QAM 05/05/24 07/29/25 release hydrochlorothiazide 12.5 mg tablet 12.5 mg PO QAM 05/05/24 07/29/25 metformin 500 mg tablet 500 mg PO BID 05/05/24 07/29/25 [id number]-[id number] acid 0.4 1 tab PO DAILY 05/05/24 07/29/25 mg-lycopene 300 mcg-lutein 250 mcg tablet (Centrum Silver) amoxicillin 500 mg tablet 2,000 mg PO DIRECTED PRN 1 HR 07/29/25 07/29/25 PRIOR TO DENTAL PROCEDURES atorvastatin 40 mg tablet 40 mg PO DAILY 07/29/25 07/29/25 zinc acetate 50 mg (zinc) capsule 50 mg PO DAILY 07/29/25 07/29/25 Results & Data (ED) Vital Signs Vital Signs - 24 hr 07/29/25 17:34 07/29/25 18:34 07/29/25 18:35 Temperature 36.4 C L Temperature Source Temporal Artery Scan Pulse Rate 74 Pulse Rate [Apical] 75 Respiratory Rate 20 18 Respiratory Effort / Characteristics Non-Labored Spontaneous Respiratory Depth Normal Blood Pressure 172/103 H Blood Pressure [Right Arm] 150/85 H Blood Pressure Mean 126 Blood Pressure Mean [Right Arm] 106 Pulse Oximetry 97 96 96 Oxygen Delivery Method Room Air Room Air Room Air Sepsis Recent Fever Within 48 Hours No Sepsis New/Unexplained Change in Mental Status No Sepsis Action Taken by Nursing No Action Required 07/29/25 20:40 Temperature Temperature Source Pulse Rate Pulse Rate [Apical] 62 Respiratory Rate 18 Respiratory Effort / Characteristics Respiratory Depth Blood Pressure Blood Pressure [Right Arm] 147/93 H Blood Pressure Mean Blood Pressure Mean [Right Arm] 111 Pulse Oximetry 95 Oxygen Delivery Method Room Air Sepsis Recent Fever Within 48 Hours Sepsis New/Unexplained Change in Mental Status Sepsis Action Taken by [facility] Medications Current Medication List: was personally reviewed by me Laboratory Data Attestation: I reviewed the patient's lab results. 07/29/25 17:49 07/29/25 17:49 Lab Results 07/29/25 Range/Units 17:49 WBC 7.02 (4.8-10.8) K/ul RBC 4.77 (4.20-5.40) M/uL Hgb 14.1 (12.0-16.0) g/dL Hct 41.6 (37.0-47.0) % MCV 87.2 (80.0-100.0) fL MCH 29.6 (25.0-34.0) pg MCHC 33.9 (32.0-36.0) g/dL RDW Std Deviation 43.1 (36.4-46.3) fL RDW Coeff of Emilee 13.6 (11.5-14.5) % Plt Count 215 (130-400) K/uL MPV 10.1 (9.4-12.4) fL Immature Gran % (Auto) 0.3 % Neut % (Auto) 69.5 % Lymph % (Auto) 18.8 % [place] % (Auto) 7.8 % Eos % (Auto) 3.0 % Baso % (Auto) 0.6 % Neut # (Auto) 4.88 (1.40-6.50) K/uL Lymph # (Auto) 1.32 (1.20-3.40) K/uL [place] # (Auto) 0.55 (0.11-0.59) K/uL Eos # (Auto) 0.21 (0.00-0.50) K/uL Baso # (Auto) 0.04 (0.00-0.20) K/uL Immature Gran # (Auto) 0.02 (0.01-0.20) K/uL PT 10.3 (9.0-12.0) Seconds INR 1.0 (0.9-1.1) Sodium 139 (136-145) mmol/L Potassium 3.6 (3.5-5.1) mmol/L Chloride 101 (98-107) mmol/L Carbon Dioxide 29 (21-32) mmol/L Anion Gap 9 (3-11) BUN 24 H (6-23) mg/dl Creatinine 1.01 (0.6-1.2) mg/dl Est Cr Clr Drug Dosing 58.4 ml/min eGFR 59.15 BUN/Creatinine Ratio 23.8 H (10-20) Glucose 151 H (70-99(Fasting)) mg/dl Calcium 9.9 (8.6-10.3) mg/dl Total Bilirubin 1.5 H (0.2-1.0) mg/dl AST 856 H (13-39) U/L ALT 556 H (7-52) U/L Alkaline Phosphatase 124 H (34-104) U/L Troponin I High Sens 3.9 (0-14) pg/ml Total Protein 7.2 (6.0-8.3) gm/dl Albumin 4.1 (3.4-5.0) gm/dl Globulin 3.1 (2.5-4.0) gm/dl Albumin/Globulin Ratio 1.3 (0.9-2) Lipase 48 (11-82) U/L Administered Medications Sodium Chloride (Nss) 1,000 mls @ 60 mls/hr IV .[id number] ONE Stop: 07/30/25 14:57 Last Admin: 07/29/25 23:08 Dose: 60 mls/hr Documented By: jeanette Discontinued Medications Acetaminophen (Ofirmev) 1,000 mg in 100 mls @ 400 mls/hr IV NOW STA Stop: 07/29/25 17:56 Last Infusion: 07/29/25 18:45 Dose: Infused Documented By: Admin: 07/29/25 17:53 Dose: 400 mls/hr Documented By: kavita Sodium Chloride (Nss) 500 mls @ 999 mls/hr IV .Q31M ONE Stop: 07/29/25 18:12 Last Infusion: 07/29/25 18:45 Dose: Infused Documented By: Admin: 07/29/25 17:54 Dose: 999 mls/hr Documented By: kavita Piperacillin Sod/Tazobactam Sod (Zosyn) 4.5 gm in 100 mls @ 200 mls/hr IV NOW ONE Stop: 07/29/25 19:51 Last Infusion: 07/29/25 22:11 Dose: Infused Documented By: kavita Admin: 07/29/25 19:55 Dose: 200 mls/hr Documented By: kavita Ioversol (Optiray 320 100ml) 90 ml IV ONCE ONE Stop: 07/29/25 18:46 Last Admin: 07/29/25 18:45 Dose: 90 ml Documented By: JOHN Ketorolac Tromethamine (Ketorolac Tromethamine 15 Mg/Ml Vial) 15 mg IV NOW STA Stop: 07/29/25 17:43 Last Admin: 07/29/25 17:53 Dose: 15 mg Documented By: kavita Ondansetron HCl (Ondansetron Inj 2 Mg/Ml 2 Ml Vial) 4 mg IV NOW STA Stop: 07/29/25 17:43 Last Admin: 07/29/25 17:55 Dose: 4 mg Documented By: kavita Imaging Data Radiologist's Impression: Abdomen/Pelvis CT 07/29/25 17:37 EXAMINATION: CT of the abdomen and pelvis performed after the administration of IV contrast TECHNIQUE: Helical CT images from the lung bases through the symphysis pubis were obtained with contrast. Coronal and sagittal reformatted images were generated at a workstation for further assessment. Dose reduction techniques were achieved by using automatic exposure control and/or adjustment of mA and/or kV according to patient size and/or use of iterative reconstruction technique. COMPARISON: None HISTORY: Abdominal pain FINDINGS: Lower chest: No consolidation. No pleural effusion or pneumothorax. Liver: No suspicious liver lesions. Portal veins appear patent. Gallbladder: There is a few calcified gallstones. Possible trace free fluid between the gallbladder and liver. Dilated extrahepatic bile duct up to 14 mm. Spleen: Normal size. Pancreas: No suspicious pancreatic lesions. The pancreatic duct is not dilated. Adrenal glands: No adrenal nodules. Kidneys: No hydronephrosis or obstructing renal stones. Bladder / Pelvic organs: Unremarkable. Bowel: No bowel obstruction. No abnormal bowel wall thickening. The appendix is normal. Lymph nodes: No retroperitoneal, mesenteric, or pelvic lymphadenopathy. Peritoneum / Retroperitoneum: No free fluid or air within the abdomen. Vessels: No infrarenal aortic aneurysm. Bones and soft tissues: No suspicious lesion in the bones. Right hip arthroplasty. Fixation changes of the lumbar spine. IMPRESSION: Cholelithiasis. Possible trace free fluid between the liver and gallbladder. Consider evaluation for acute cholecystitis. Dilated extrahepatic bile duct up to 14 mm, possibly reactive or due to choledocholithiasis. Consider MRCP. Electronically signed by Clemente Blanchard 07-29-2025 7:14 PM Chest X-Ray 07/29/25 17:37 Chest radiograph, one view History: Flank pain Comparison: None Findings: Single AP view of the chest performed. No focal consolidation or pleural effusion. No pneumothorax. The cardiomediastinal silhouette is within normal limits. Normal pulmonary vascularity. No evidence for lymphadenopathy. No visualized bony or soft tissue abnormality. Impression: Normal chest radiograph Electronically signed by Clemente Blanchard 07-29-2025 6:16 PM Gallbladder Ultrasound 07/29/25 19:22 Exam(s): US GALLBLADDER EXAM: US Abdomen Limited, Gallbladder CLINICAL HISTORY: stones, pain. TECHNIQUE: Real-time ultrasound of the right upper quadrant with image documentation. COMPARISON: CT abdomen and pelvis with contrast performed earlier FINDINGS: Liver: The liver is hyperechoic measuring at least 21 cm in length. Gallbladder: Echogenic gallstones noted in the gallbladder. The gallbladder wall measures 3.2 mm with questionable intramural edema or subtle pericholecystic fluid. There is a reported negative sonographic Walsh's sign. Common bile duct: The common bile duct is dilated, measuring up to 1.6 cm near the rambo hepatis. No stones. Pancreas: Visualized segments of the pancreas are unremarkable. Right kidney: The right kidney measures 10.9 cm. Aorta: The proximal aorta is normal in caliber. Inferior vena cava: The IVC is unremarkable. Free fluid: No free fluid. IMPRESSION: 1. Echogenic gallstones noted in the gallbladder. The gallbladder wall measures 3.2 mm with questionable intramural edema or subtle pericholecystic fluid. There is a reported negative sonographic Walsh's sign. Findings are somewhat equivocal sonographically; however, acute cholecystitis is difficult to entirely exclude. Functional radionuclide imaging of the gallbladder may be performed in clinically equivocal cases. 2. The common bile duct is dilated, measuring up to 1.6 cm near the rambo hepatis. 3. The liver is hyperechoic measuring at least 21 cm in length. Electronically signed by: Moe Stone MD 07/29/25 21:03 PM Discharge Plan Visit Data Chief Complaint: Flank Pain Stated Complaint: SHARP PN ON LT SIDE ED Provider: Mark Goldsmith Discharge Problem: LUQ abdominal pain, Acute cholecystitis, Elevated liver enzymes Patient Disposition: Admitted As Inpatient Condition: Fair Discharge Instructions Interventions: ED Discharge Assessment Last Done: 07/29/25 22:38
[2025-07-29] MEDS: KETOROLAC TROMETHAMINE 15 MG/ML VIAL IV STA (17:53)
[2025-07-29] MEDS: ACETAMINOPHEN 1,000 MG/100 ML VIAL IV STA (17:53)
[2025-07-29] MEDS: SODIUM CHLORIDE 0.9% 500 ML IV ONE (17:54)
[2025-07-29] MEDS: ONDANSETRON INJ 2 MG/ML 2 ML VIAL IV STA (17:55)
[2025-07-29 18:02] LABS: Hematocrit (blood only) 41.6 % (37.0-47.0); Hemoglobin 14.1 g/dL (12.0-16.0); Immature Granulocytes # (auto) 0.02 K/uL (0.01-0.20); Immature Granulocytes % (auto) 0.3 %; Mean Corpuscular Hemoglobin 29.6 pg (25.0-34.0); Mean Corpuscular Volume 87.2 fL (80.0-100.0); Platelet Count 215 K/uL (130-400); RDW Standard Deviation 43.1 fL (36.4-46.3); Red Blood Count 4.77 M/uL (4.20-5.40); White Blood Count 7.02 K/ul (4.8-10.8)
--- NOTE | 2025-07-29 18:18 | XRay Report ---
Chest radiograph, one view History: Flank pain Comparison: None Findings: Single AP view of the chest performed. No focal consolidation or pleural effusion. No pneumothorax. The cardiomediastinal silhouette is within normal limits. Normal pulmonary vascularity. No evidence for lymphadenopathy. No visualized bony or soft tissue abnormality. Impression: Normal chest radiograph Electronically signed by Clemente Blanchard 07-29-2025 6:16 PM
[2025-07-29 18:20] LABS: Anion Gap 9.0 (3-11); Blood Urea Nitrogen 24.0 mg/dl (6-23); Calcium 9.9 mg/dl (8.6-10.3); Carbon Dioxide 29.0 mmol/L (21-32); Chloride 101.0 mmol/L (98-107); Creatinine Clr Calc Pharmacy 58.4 ml/min; Glucose 151.0 mg/dl (70-99(Fasting)); Potassium 3.6 mmol/L (3.5-5.1); Sodium 139.0 mmol/L (136-145)
[2025-07-29 18:25] LABS: Albumin Globulin Ratio 1.3 (0.9-2); Albumin Level 4.1 gm/dl (3.4-5.0); Alkaline Phosphatase 124.0 U/L (34-104); Bilirubin,Total 1.5 mg/dl (0.2-1.0); Globulin 3.1 gm/dl (2.5-4.0); Lipase 48.0 U/L (11-82); Total Protein 7.2 gm/dl (6.0-8.3)
[2025-07-29 18:37] LABS: Alanine Aminotransferase 556.0 U/L (7-52)
[2025-07-29] MEDS: OPTIRAY 320 100ml IV ONE (18:45)
--- NOTE | 2025-07-29 19:15 | CT Scan Report ---
EXAMINATION: CT of the abdomen and pelvis performed after the administration of IV contrast TECHNIQUE: Helical CT images from the lung bases through the symphysis pubis were obtained with contrast. Coronal and sagittal reformatted images were generated at a workstation for further assessment. Dose reduction techniques were achieved by using automatic exposure control and/or adjustment of mA and/or kV according to patient size and/or use of iterative reconstruction technique. COMPARISON: None HISTORY: Abdominal pain FINDINGS: Lower chest: No consolidation. No pleural effusion or pneumothorax. Liver: No suspicious liver lesions. Portal veins appear patent. Gallbladder: There is a few calcified gallstones. Possible trace free fluid between the gallbladder and liver. Dilated extrahepatic bile duct up to 14 mm. Spleen: Normal size. Pancreas: No suspicious pancreatic lesions. The pancreatic duct is not dilated. Adrenal glands: No adrenal nodules. Kidneys: No hydronephrosis or obstructing renal stones. Bladder / Pelvic organs: Unremarkable. Bowel: No bowel obstruction. No abnormal bowel wall thickening. The appendix is normal. Lymph nodes: No retroperitoneal, mesenteric, or pelvic lymphadenopathy. Peritoneum / Retroperitoneum: No free fluid or air within the abdomen. Vessels: No infrarenal aortic aneurysm. Bones and soft tissues: No suspicious lesion in the bones. Right hip arthroplasty. Fixation changes of the lumbar spine. IMPRESSION: Cholelithiasis. Possible trace free fluid between the liver and gallbladder. Consider evaluation for acute cholecystitis. Dilated extrahepatic bile duct up to 14 mm, possibly reactive or due to choledocholithiasis. Consider MRCP. Electronically signed by Clemente Blanchard 07-29-2025 7:14 PM
[2025-07-29] MEDS: PIPERACILLIN/TAZOBACTAM 4.5 GM/100 ML BAG IV ONE (19:55)
--- NOTE | 2025-07-29 21:04 | Ultrasound Report ---
Exam(s): US GALLBLADDER EXAM: US Abdomen Limited, Gallbladder CLINICAL HISTORY: stones, pain. TECHNIQUE: Real-time ultrasound of the right upper quadrant with image documentation. COMPARISON: CT abdomen and pelvis with contrast performed earlier FINDINGS: Liver: The liver is hyperechoic measuring at least 21 cm in length. Gallbladder: Echogenic gallstones noted in the gallbladder. The gallbladder wall measures 3.2 mm with questionable intramural edema or subtle pericholecystic fluid. There is a reported negative sonographic Walsh's sign. Common bile duct: The common bile duct is dilated, measuring up to 1.6 cm near the rambo hepatis. No stones. Pancreas: Visualized segments of the pancreas are unremarkable. Right kidney: The right kidney measures 10.9 cm. Aorta: The proximal aorta is normal in caliber. Inferior vena cava: The IVC is unremarkable. Free fluid: No free fluid. IMPRESSION: 1. Echogenic gallstones noted in the gallbladder. The gallbladder wall measures 3.2 mm with questionable intramural edema or subtle pericholecystic fluid. There is a reported negative sonographic Walsh's sign. Findings are somewhat equivocal sonographically; however, acute cholecystitis is difficult to entirely exclude. Functional radionuclide imaging of the gallbladder may be performed in clinically equivocal cases. 2. The common bile duct is dilated, measuring up to 1.6 cm near the rambo hepatis. 3. The liver is hyperechoic measuring at least 21 cm in length. Electronically signed by: Moe Stone MD 07/29/25 21:03 PM
--- NOTE | 2025-07-29 21:53 | History & Physical Report ---
Date of Service July 29, 2025 Assessment & Plan (1) Acute cholecystitis: Plan: Assessment and plan below following discussion of case with ED provider and reviewing patient history/pertinent normal/abnormal diagnostic test results. Acute cholecystitis Rule out choledocholithiasis given abnormal LFTs No sepsis for now hypertension, slightly elevated secondary to discomfort hyperlipidemia, on statin Rx JAZMINE on CPAP pulmonary hypertension prediabetes on metformin, hemoglobin A1c of 5.04 July 2025 PMR, currently not on steroid Rx uterine cancer status post surgery Admit to MedSurg Zosyn N.p.o. Follow LFTs, MRCP Hold statin for now GI consult re: abnormal LFTs (ED provider already in touch with Dr. Fitzgerald). General Surgery consult re: cholecystitis DVT prophylaxis. SCDs re: possible procedure Full code Patient requesting updates providers. Mr. Dev Sebastian, contact #[phone]. Text document was generated using [employer] voice recognition software. It may contain grammatical or spelling errors. Kindly contact undersigned for clarification of any documentation item in question. History of Present Illness Chief Complaint: Left-sided abdominal pain Primary Care Provider: Joon Benavidez MD History obtained from patient, family, and records. Medical history significant for hypertension, hyperlipidemia, JAZMINE on CPAP, pulmonary hypertension, prediabetes, PMR, uterine cancer status post surgery. Last confinement 2017 under Orthopedics service for elective left total knee arthroplasty. Patient noticed achy left-sided abdominal pain after lunch today. Some nausea, no emesis. No fever, no chills. No chest pain, no SOB. Patient consulted urgent care center. No ischemia on EKG. Patient advised to go to ER if with worsening symptoms. IV Zosyn administered at the ER for cholecystitis. 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 Allergies Allergy/AdvReac Type Severity Reaction Status Date / Time codeine AdvReac Intermediate NAUSEA & Verified 07/29/25 18:49 VOMITING morphine AdvReac Intermediate GI SYMPTOMS Verified 07/29/25 18:49 oxycodone AdvReac Intermediate GI SYMPTOMS Verified 07/29/25 18:49 Home Medications Medication Instructions Recorded Confirmed Type carvedilol 6.25 mg tablet 6.25 mg PO BID 05/05/24 07/29/25 History celecoxib 100 mg capsule (Celebrex) 100 mg PO BID 05/05/24 07/29/25 History duloxetine 60 mg capsule,delayed 60 mg PO QAM 05/05/24 07/29/25 History release hydrochlorothiazide 12.5 mg tablet 12.5 mg PO QAM 05/05/24 07/29/25 History metformin 500 mg tablet 500 mg PO BID 05/05/24 07/29/25 History oxpcwstk-djr-lzvhv acid 0.4 1 tab PO DAILY 05/05/24 07/29/25 History mg-lycopene 300 mcg-lutein 250 mcg tablet (Centrum Silver) amoxicillin 500 mg tablet 2,000 mg PO DIRECTED PRN 1 HR 07/29/25 07/29/25 History PRIOR TO DENTAL PROCEDURES atorvastatin 40 mg tablet 40 mg PO DAILY 07/29/25 07/29/25 History zinc acetate 50 mg (zinc) capsule 50 mg PO DAILY 07/29/25 07/29/25 History Past Med/Surg History Problem List Elevated liver enzymes (Acute) Acute cholecystitis (Acute) LUQ abdominal pain (Acute) History of carpal tunnel surgery of right wrist (Chronic) H/O: (Chronic) H/O colonoscopy (Chronic) S/P KENIA-BSO (total abdominal hysterectomy and bilateral salpingo-oophorectomy) (Chronic) "secondary to stage 1 gr1 endometrial Ca 01/28/12" History of lumbar laminectomy for spinal cord decompression (Chronic) " x 2 Dr. Cobian" History of total right knee replacement (TKR) (Chronic) "Dr. Haji 02/24/14" Obesity (BMI 30-39.9) (Chronic) Prediabetes (Chronic) Generalized osteoarthritis (Chronic) Left knee DJD (Chronic) HTN (hypertension) (Chronic) DJD (degenerative joint disease) of knee (Acute 02/24/14) Medical History Generalized osteoarthritis Sleep apnea CPAP-compliant Prediabetes metformin HTN (hypertension) controlled, stable per pt History of uterine cancer Surgical History Hx of colonoscopy History of lumbar laminectomy for spinal cord decompression x2 2007, 2009 - Dr. Cobian History of total bilateral knee replacement (TKR) S/P KENIA-BSO (total abdominal hysterectomy and bilateral salpingo-oophorectomy) due to uterine cancer History of carpal tunnel release of both wrists Hx of section (1985) Social History Smoking Status: Never smoker Second Hand Exposure: No; Do You Dip or Chew Tobacco: No; Hx Alcohol Use: Yes Alcohol type: wine Hx Substance Use: No Preferred Language: Ivorian Communication Ability: Effective Corduroy Cutter Operator Required: No Beliefs That Will Affect Care: None Current Living Situation: Spouse Other Information That Helps Us Care for You: No Feels Safe at Home: Yes Safety Concerns: Feels Safe At This Time Assistive Devices: CPAP and Glasses Review of Systems Review of Systems: As per HPI, all other systems reviewed and negative Physical Exam Physical Exam: GENERAL: Comfortable, pleasant, obese, no respiratory distress SKIN: Normal color, warm HEENT: Spade palpebral conjunctivae, no ptosis, dry buccal mucosa NECK : Supple, no tenderness CHEST : CTA, no tenderness HEART : RRR, no obvious murmurs ABDOMEN: Some distention, epigastric tenderness EXTREMITIES : Minimal LE swelling, no LE tenderness, palpable pulses, no other conspicuous deformities noted NEUROLOGIC : Coherent, no facial asymmetry, no other gross focality Results & Data Results & Data Vital Signs (Past 12 Hours) Vital Signs Temp Pulse Pulse Resp BP BP Pulse Ox 07/29/25 20:40 62 18 147/93 H 95 07/29/25 18:35 96 07/29/25 18:34 75 18 150/85 H 96 07/29/25 17:34 36.4 C L 74 20 172/103 H 97 O2 Del Method 07/29/25 20:40 Room Air 07/29/25 18:35 Room Air 07/29/25 18:34 Room Air 07/29/25 17:34 Room Air Laboratory Results Laboratory Results WBC 7.02 K/ul (4.8-10.8) 07/29/25 17:49 RBC 4.77 M/uL (4.20-5.40) 07/29/25 17:49 Hgb 14.1 g/dL (12.0-16.0) 07/29/25 17:49 Hct 41.6 % (37.0-47.0) 07/29/25 17:49 MCV 87.2 fL (80.0-100.0) 07/29/25 17:49 MCH 29.6 pg (25.0-34.0) 07/29/25 17:49 MCHC 33.9 g/dL (32.0-36.0) 07/29/25 17:49 RDW Std Deviation 43.1 fL (36.4-46.3) 07/29/25 17:49 RDW Coeff of Emilee 13.6 % (11.5-14.5) 07/29/25 17:49 Plt Count 215 K/uL (130-400) 07/29/25 17:49 MPV 10.1 fL (9.4-12.4) 07/29/25 17:49 Immature Gran % (Auto) 0.3 % 07/29/25 17:49 Neut % (Auto) 69.5 % 07/29/25 17:49 Lymph % (Auto) 18.8 % 07/29/25 17:49 Rutherford % (Auto) 7.8 % 07/29/25 17:49 Eos % (Auto) 3.0 % 07/29/25 17:49 Baso % (Auto) 0.6 % 07/29/25 17:49 Neut # (Auto) 4.88 K/uL (1.40-6.50) 07/29/25 17:49 Lymph # (Auto) 1.32 K/uL (1.20-3.40) 07/29/25 17:49 Rutherford # (Auto) 0.55 K/uL (0.11-0.59) 07/29/25 17:49 Eos # (Auto) 0.21 K/uL (0.00-0.50) 07/29/25 17:49 Baso # (Auto) 0.04 K/uL (0.00-0.20) 07/29/25 17:49 Immature Gran # (Auto) 0.02 K/uL (0.01-0.20) 07/29/25 17:49 Sodium 139 mmol/L (136-145) 07/29/25 17:49 Potassium 3.6 mmol/L (3.5-5.1) 07/29/25 17:49 Chloride 101 mmol/L (98-107) 07/29/25 17:49 Carbon Dioxide 29 mmol/L (21-32) 07/29/25 17:49 Anion Gap 9 (3-11) 07/29/25 17:49 BUN 24 mg/dl (6-23) H 07/29/25 17:49 Creatinine 1.01 mg/dl (0.6-1.2) 07/29/25 17:49 Est Cr Clr Drug Dosing 58.4 ml/min 07/29/25 17:49 eGFR 59.15 07/29/25 17:49 BUN/Creatinine Ratio 23.8 (10-20) H 07/29/25 17:49 Glucose 151 mg/dl (70-99(Fasting)) H 07/29/25 17:49 Calcium 9.9 mg/dl (8.6-10.3) 07/29/25 17:49 Total Bilirubin 1.5 mg/dl (0.2-1.0) H 07/29/25 17:49 AST 856 U/L (13-39) H 07/29/25 17:49 ALT 556 U/L (7-52) H 07/29/25 17:49 Alkaline Phosphatase 124 U/L (34-104) H 07/29/25 17:49 Troponin I High Sens 3.9 pg/ml (0-14) 07/29/25 17:49 Total Protein 7.2 gm/dl (6.0-8.3) 07/29/25 17:49 Albumin 4.1 gm/dl (3.4-5.0) 07/29/25 17:49 Globulin 3.1 gm/dl (2.5-4.0) 07/29/25 17:49 Albumin/Globulin Ratio 1.3 (0.9-2) 07/29/25 17:49 Lipase 48 U/L (11-82) 07/29/25 17:49 Impressions Abdomen/Pelvis CT 07/29/25 17:37 EXAMINATION: CT of the abdomen and pelvis performed after the administration of IV contrast TECHNIQUE: Helical CT images from the lung bases through the symphysis pubis were obtained with contrast. Coronal and sagittal reformatted images were generated at a workstation for further assessment. Dose reduction techniques were achieved by using automatic exposure control and/or adjustment of mA and/or kV according to patient size and/or use of iterative reconstruction technique. COMPARISON: None HISTORY: Abdominal pain FINDINGS: Lower chest: No consolidation. No pleural effusion or pneumothorax. Liver: No suspicious liver lesions. Portal veins appear patent. Gallbladder: There is a few calcified gallstones. Possible trace free fluid between the gallbladder and liver. Dilated extrahepatic bile duct up to 14 mm. Spleen: Normal size. Pancreas: No suspicious pancreatic lesions. The pancreatic duct is not dilated. Adrenal glands: No adrenal nodules. Kidneys: No hydronephrosis or obstructing renal stones. Bladder / Pelvic organs: Unremarkable. Bowel: No bowel obstruction. No abnormal bowel wall thickening. The appendix is normal. Lymph nodes: No retroperitoneal, mesenteric, or pelvic lymphadenopathy. Peritoneum / Retroperitoneum: No free fluid or air within the abdomen. Vessels: No infrarenal aortic aneurysm. Bones and soft tissues: No suspicious lesion in the bones. Right hip arthroplasty. Fixation changes of the lumbar spine. IMPRESSION: Cholelithiasis. Possible trace free fluid between the liver and gallbladder. Consider evaluation for acute cholecystitis. Dilated extrahepatic bile duct up to 14 mm, possibly reactive or due to choledocholithiasis. Consider MRCP. Electronically signed by Clemente Blanchard 07-29-2025 7:14 PM Chest X-Ray 07/29/25 17:37 Chest radiograph, one view History: Flank pain Comparison: None Findings: Single AP view of the chest performed. No focal consolidation or pleural effusion. No pneumothorax. The cardiomediastinal silhouette is within normal limits. Normal pulmonary vascularity. No evidence for lymphadenopathy. No visualized bony or soft tissue abnormality. Impression: Normal chest radiograph Electronically signed by Clemente Blanchard 07-29-2025 6:16 PM Gallbladder Ultrasound 07/29/25 19:22 Exam(s): US GALLBLADDER EXAM: US Abdomen Limited, Gallbladder CLINICAL HISTORY: stones, pain. TECHNIQUE: Real-time ultrasound of the right upper quadrant with image documentation. COMPARISON: CT abdomen and pelvis with contrast performed earlier FINDINGS: Liver: The liver is hyperechoic measuring at least 21 cm in length. Gallbladder: Echogenic gallstones noted in the gallbladder. The gallbladder wall measures 3.2 mm with questionable intramural edema or subtle pericholecystic fluid. There is a reported negative sonographic Walsh's sign. Common bile duct: The common bile duct is dilated, measuring up to 1.6 cm near the rambo hepatis. No stones. Pancreas: Visualized segments of the pancreas are unremarkable. Right kidney: The right kidney measures 10.9 cm. Aorta: The proximal aorta is normal in caliber. Inferior vena cava: The IVC is unremarkable. Free fluid: No free fluid. IMPRESSION: 1. Echogenic gallstones noted in the gallbladder. The gallbladder wall measures 3.2 mm with questionable intramural edema or subtle pericholecystic fluid. There is a reported negative sonographic Walsh's sign. Findings are somewhat equivocal sonographically; however, acute cholecystitis is difficult to entirely exclude. Functional radionuclide imaging of the gallbladder may be performed in clinically equivocal cases. 2. The common bile duct is dilated, measuring up to 1.6 cm near the rambo hepatis. 3. The liver is hyperechoic measuring at least 21 cm in length. Electronically signed by: Moe Stone MD 07/29/25 21:03 PM Diagnostic Findings EKG as per my interpretation :Rate 75, NSR, LAD, LAFB, incomplete RBB, LVH, no ischemia
[2025-07-29] MEDS ORDERED: LORazepam 0.5 MG TAB PO PRN (22:18)
[2025-07-29] MEDS ORDERED: HYDROmorphone INJ 0.5 MG/0.5 ML SYR IV PRN (22:18)
[2025-07-29 22:38] LABS: INR 1.0 (0.9-1.1); Prothrombin Time 10.3 Seconds (9.0-12.0)
[2025-07-29] MEDS: SODIUM CHLORIDE 0.9% 1,000 ML IV ONE (23:08)
--- NOTE | 2025-07-29 23:41 | Surgery Consultation ---
<Statement entered by Unique Garcia MD - 07/30/25 11:13> I independently saw and examined the patient, and I agree with the assessment and plan of care. Date of Consultation July 29, 2025 Assessment & Plan (1) Elevated liver enzymes: (2) Acute cholecystitis: Plan Patient is a 70-year-old female with a past medical history significant for hypertension, hyperlipidemia, diabetes, obesity, osteoarthritis, degenerative joint disease, obstructive sleep apnea on CPAP, and a history of uterine cancer status post hysterectomy many years ago, who presents to [facility] emergency department with complaints of abdominal pain x 1 day with CTA and ultrasound findings suggestive of possible cholecystitis with cholelithiasis and dilation of the CBD concerning for choledocholithiasis. Agree with obtaining an MRCP to evaluate for choledocholithiasis and continue to trend LFTs. Agree with consulting gastroenterology as they may need to perform an ERCP based on MRCP results and general surgery will continue to follow to determine optimal timing for cholecystectomy. Remainder over her care per the primary medicine team. History of Present Illness Reason for Consultation: possible cholecystitis with possible choledocholithiasis Attending Physician: Evette Gee MD History of Present Illness Patient is a 70-year-old female with a past medical history significant for hypertension, hyperlipidemia, diabetes, obesity, osteoarthritis, degenerative joint disease, obstructive sleep apnea on CPAP, and a history of uterine cancer status post hysterectomy many years ago, who presents to [facility] emergency department with complaints of abdominal pain x 1 day. Patient localizes her abdominal pain to the left upper quadrant, described as severe pressure, with no radiation of the pain and no obvious aggravating or relieving factors. Patient states that she developed this left upper quadrant pain at approximately 10 AM today, approximately 2 hours after eating a protein shake, and it was quite severe at the time so she went to urgent care. She states that at urgent care she had her vitals taken and an EKG done which was reportedly normal. She was discharged from urgent care and instructed to proceed to the emergency department if her abdominal pain persisted. Unfortunately, her abdominal pain did persist and increased in severity and had associated nausea with bilious, nonbloody, vomiting, so she came to [facility] emergency department for evaluation. She denied any chest pain, shortness of breath, dyspnea, constipation, diarrhea, urinary complaints, fevers or chills. Upon her initial evaluation she was hemodynamically stable and afebrile. Her labs were significant for an elevated total bilirubin of 1.5 and an ALT of 556, AST of 856, and alk phos of 124. Her white blood cell count was normal at 7.02. She had a CAT scan of the abdomen pelvis that showed cholelithiasis with a dilated CBD and questionable Damian cholecystic fluid. She then had an abdominal ultrasound which also showed cholelithiasis and a minimally thickened gallbladder wall of 3.2 mm, but also with questionable pericholecystic fluid and a negative sonographic Walsh sign, but also showed CBD dilation. She was then admitted to the medical service with plans to obtain an MRCP while gastroenterology and general surgery were consulted. Allergies Allergy/AdvReac Type Severity Reaction Status Date / Time codeine AdvReac Intermediate NAUSEA & Verified 07/29/25 18:49 VOMITING morphine AdvReac Intermediate GI SYMPTOMS Verified 07/29/25 18:49 oxycodone AdvReac Intermediate GI SYMPTOMS Verified 07/29/25 18:49 Home Medications Medication Instructions Recorded Confirmed Type carvedilol 6.25 mg tablet 6.25 mg PO BID 05/05/24 07/29/25 History celecoxib 100 mg capsule (Celebrex) 100 mg PO BID 05/05/24 07/29/25 History duloxetine 60 mg capsule,delayed 60 mg PO QAM 05/05/24 07/29/25 History release hydrochlorothiazide 12.5 mg tablet 12.5 mg PO QAM 05/05/24 07/29/25 History metformin 500 mg tablet 500 mg PO BID 05/05/24 07/29/25 History uxyyywzn-mfb-mxwpc acid 0.4 1 tab PO DAILY 05/05/24 07/29/25 History mg-lycopene 300 mcg-lutein 250 mcg tablet (Centrum Silver) amoxicillin 500 mg tablet 2,000 mg PO DIRECTED PRN 1 HR 07/29/25 07/29/25 History PRIOR TO DENTAL PROCEDURES atorvastatin 40 mg tablet 40 mg PO DAILY 07/29/25 07/29/25 History zinc acetate 50 mg (zinc) capsule 50 mg PO DAILY 07/29/25 07/29/25 History Patient History Medical History Generalized osteoarthritis Sleep apnea CPAP-compliant Prediabetes metformin HTN (hypertension) controlled, stable per pt History of uterine cancer Surgical History Hx of colonoscopy History of lumbar laminectomy for spinal cord decompression x2 2007, 2009 - Dr. Cobian History of total bilateral knee replacement (TKR) S/P KENIA-BSO (total abdominal hysterectomy and bilateral salpingo-oophorectomy) due to uterine cancer History of carpal tunnel release of both wrists Hx of section (1985) Social History Smoking Status: Never smoker Second Hand Exposure: No; Do You Dip or Chew Tobacco: No; Hx Alcohol Use: Yes Hx Substance Use: No Preferred Language: Tamazight Communication Ability: Effective Molding Cutter Required: No Beliefs That Will Affect Care: None Current Living Situation: Spouse Feels Safe at Home: Yes Assistive Devices: CPAP and Glasses Review of Systems Review of Systems: All systems reviewed & are unremarkable except as noted in HPI & below Physical Exam Physical Exam: Gen: Awake and alert, resting comfortably in bed in NAD CV: RRR PULM: non-labored breathing Abd: Abd obese, soft, non-distended, minimally tender to the left upper quadrant, but moderately tender to the epigastric area and right upper quadrant, positive Walsh sign. No guarding, rigidity, or peritoneal signs. ext: no edema to bilateral lower ext, SCDs in place, non-tender, feet warm and well perfused Results & Data Vital Signs (Past 12 Hours) Vital Signs Temp Pulse Pulse Resp BP BP Pulse Ox 07/29/25 22:36 66 18 153/93 H 98 07/29/25 20:40 62 18 147/93 H 95 07/29/25 18:35 96 07/29/25 18:34 75 18 150/85 H 96 07/29/25 17:34 36.4 C L 74 20 172/103 H 97 O2 Del Method 07/29/25 22:36 Room Air 07/29/25 20:40 Room Air 07/29/25 18:35 Room Air 07/29/25 18:34 Room Air 07/29/25 17:34 Room Air Diagnostic Findings CT abd/pelvis: IMPRESSION: Cholelithiasis. Possible trace free fluid between the liver and gallbladder. Consider evaluation for acute cholecystitis. Abd U/S: IMPRESSION: 1. Echogenic gallstones noted in the gallbladder. The gallbladder wall measures 3.2 mm with questionable intramural edema or subtle pericholecystic fluid. There is a reported negative sonographic Walsh's sign. Findings are somewhat equivocal sonographically; however, acute cholecystitis is difficult to entirely exclude. Functional radionuclide imaging of the gallbladder may be performed in clinically equivocal cases. 2. The common bile duct is dilated, measuring up to 1.6 cm near the rambo hepatis. 3. The liver is hyperechoic measuring at least 21 cm in length. PG Care Time/CCT Total # of Minutes Spent Total Time Spent with Patient: Total time spent is greater than 50% in coordination of care (as documented) at patient's floor/unit and/or counseling patient: [place] [address] IN/OBS CONSULT LVL 5,80M Patient Type New History Problem Focused Exam Problem Focused Medical Decision Making Straight Forward Diagnoses Elevated liver enzymes R74.8 Acute cholecystitis K81.0
--- NOTE | 2025-07-30 01:37 | Magnetic Resonance Report ---
EXAM: MR MRCP CLINICAL HISTORY: abn lfts TECHNIQUE: Multiplanar multisequence magnetic resonance imaging of the abdomen without intravenous contrast. COMPARISON: None. FINDINGS: Liver: Normal size and morphology. Homogeneous signal intensity on T2-weighted images. No focal hepatic lesions. Gallbladder and bile ducts: Gallbladder is well distended with multiple T2 hypointense filling defects noted within largest measuring approximately 11 mm with suggestion of wall thickening measuring up to 3 mm. Dilated common bile duct measuring up to 9 mm in caliber. Evidence of 4.5 mm T2 hypointense filling defect noted in distal CBD - likely choledocholithiasis. Moderate bilobar intrahepatic biliary radical dilatation. Pancreas: Normal size and contour. Homogeneous signal intensity on T2-weighted images. No masses or cystic lesions. Pancreatic Duct: Pancreatic duct is normal in caliber. No evidence of ductal dilatation or filling defects. Spleen: Normal size and appearance. Homogeneous signal intensity. Kidneys: Normal size, shape, and position of both kidneys. Homogeneous signal intensity on T2-weighted images. No renal stones, masses, or hydronephrosis. Mild perinephric fat stranding is seen on both sides. Adrenal Glands: Normal size and morphology bilaterally. No adrenal masses. Surrounding Structures: No evidence of free fluid or abnormal fluid collections in the abdomen. Normal appearance of the visualized bowel loops. IMPRESSION: Gallbladder is well distended with multiple T2 hypointense filling defects noted within largest measuring approximately 11 mm with suggestion of wall thickening measuring up to 3 mm. Dilated common bile duct measuring up to 9 mm in caliber. Evidence of 4.5 mm T2 hypointense filling defect noted in distal CBD - likely choledocholithiasis. Moderate bilobar intrahepatic biliary radical dilatation. Mild perinephric fat stranding is seen on both sides. Electronically signed by Carlos Esparza 07-30-2025 01:36 AM
[2025-07-30] MEDS: PIPERACILLIN/TAZOBACTAM 4.5 GM/100 ML BAG IV SCH (01:59)
[2025-07-30 07:38] LABS: Hematocrit (blood only) 39.9 % (37.0-47.0); Hemoglobin 13.3 g/dL (12.0-16.0); Immature Granulocytes # (auto) 0.00 K/uL (0.01-0.20); Immature Granulocytes % (auto) 0.0 %; Mean Corpuscular Hemoglobin 29.4 pg (25.0-34.0); Mean Corpuscular Volume 88.3 fL (80.0-100.0); Platelet Count 192 K/uL (130-400); RDW Standard Deviation 43.8 fL (36.4-46.3); Red Blood Count 4.52 M/uL (4.20-5.40); White Blood Count 4.74 K/ul (4.8-10.8)
[2025-07-30 08:19] LABS: Calcium 9.2 mg/dl (8.6-10.3)
[2025-07-30 08:33] LABS: Anion Gap 10.0 (3-11); Blood Urea Nitrogen 19.0 mg/dl (6-23); Carbon Dioxide 26.0 mmol/L (21-32); Chloride 106.0 mmol/L (98-107); Creatinine Clr Calc Pharmacy 56.7 ml/min; Glucose 112.0 mg/dl (70-99(Fasting)); Potassium 3.6 mmol/L (3.5-5.1); Sodium 142.0 mmol/L (136-145)
[2025-07-30 08:47] LABS: Alanine Aminotransferase 602.0 U/L (7-52); Albumin Globulin Ratio 1.6 (0.9-2); Albumin Level 3.9 gm/dl (3.4-5.0); Alkaline Phosphatase 113.0 U/L (34-104); Bilirubin,Total 1.2 mg/dl (0.2-1.0); Globulin 2.5 gm/dl (2.5-4.0); Total Protein 6.4 gm/dl (6.0-8.3)
--- NOTE | 2025-07-30 09:21 | Hospitalist Progress Note ---
Date of Service July 30, 2025 Assessment & Plan (1) Acute cholecystitis: (2) Choledocholithiasis: Plan: This is a 70yo F with PMH of HTN, HLD, JAZMINE on CPAP, pulm HTN, PMR, history of uterine cancer s/p surgery and other medical problems listed below who presents with abdominal pain concerning for cholecystitis and choledocholithiasis. Acute cholecystitis Choledocholithiasis Afebrile, no leukocytosis Tbili 1.2, AST 447, ALT 602, alk phos 113 MRCP - Gallbladder is well distended with multiple T2 hypointense filling defects noted within largest, dilated common bile duct measuring up to 9 mm in caliber Discussed with GI - plan for ERCP today Gen surg consulted - follow-up ERCP and plans for surgical intervention, hopefully sometime this weekend Continue IV Zosyn, IV fluids and PRN analgesia Repeat CBC, CMP in AM HTN-Optimize pain control, resume PO agents as able Hyperlipidemia-Resume statin as able JAZMINE on CPAP-CPAP HS PMR- currently not on steroid Rx Prediabetes- holding metformin for now, hemoglobin A1c of 5.04 Jul 2025 DVT prophylaxis: SCDs Code: Full code PCP: Edwin Dispo: admitted to med/surg updated at bedside this morning. (Dev, contact [phone]) (3) HTN (hypertension): (4) HTN (hypertension): (5) Sleep apnea: Admission and Anticipated Discharge Date Admission Date: July 29, 2025 Subjective Presented yesterday for worsening abd/chest discomfort. Pain better controlled now, 11/02. No nausea or vomiting. Awaiting gen surg and GI to coordiante plans for this afternoon. No other acute complaints. Remains hemodynamically stabel and afebrile. Review of Systems Review of Systems: At least ten systems reviewed and negative except as noted in the HPI. Physical Exam Physical Exam: Gen: WD/WN, NAD, resting in bed comfortably, A&Ox3 HEENT: Normocephalic, atraumatic, mucous membranes moist Lung: Clear to Auscultation bilaterally Heart: Regular rate, regular rhythm Abdomen: Soft, TTP RUQ extending to epigastrium, +BS x 4 Extremities: no edema Skin: Warm, no rash Results & Data Results & Data Vital Signs (Past 12 Hours) Vital Signs Temp Pulse Pulse Resp BP Pulse Ox O2 Del Method 07/30/25 03:08 58 L 15 99 07/29/25 23:48 61 11 L 97 07/29/25 23:00 36.5 C 64 16 166/100 H 96 Room Air 07/29/25 23:00 36.5 C 64 16 166/100 H 96 Room Air 07/29/25 22:36 66 18 153/93 H 98 Room Air FiO2 07/30/25 03:08 21 07/29/25 23:48 21 07/29/25 23:00 07/29/25 23:00 07/29/25 22:36 Laboratory Results Short CBC 07/29/25 07/30/25 Range/Units 17:49 07:03 WBC 7.02 4.74 L (4.8-10.8) K/ul Hgb 14.1 13.3 (12.0-16.0) g/dL Hct 41.6 39.9 (37.0-47.0) % Plt Count 215 192 (130-400) K/uL BMP 07/29/25 07/30/25 17:49 07:03 Sodium 139 142 Potassium 3.6 3.6 Chloride 101 106 Carbon Dioxide 29 26 BUN 24 H 19 Creatinine 1.01 1.04 Glucose 151 H 112 H Calcium 9.9 9.2 Liver Function 07/29/25 07/30/25 Range/Units 17:49 07:03 Total Bilirubin 1.5 H 1.2 H (0.2-1.0) mg/dl AST 856 H 447 H (13-39) U/L ALT 556 H 602 H (7-52) U/L Alkaline Phosphatase 124 H 113 H (34-104) U/L Albumin 4.1 3.9 (3.4-5.0) gm/dl Diagnostic Findings Abdomen/Pelvis CT 07/29/25 17:37 EXAMINATION: CT of the abdomen and pelvis performed after the administration of IV contrast TECHNIQUE: Helical CT images from the lung bases through the symphysis pubis were obtained with contrast. Coronal and sagittal reformatted images were generated at a workstation for further assessment. Dose reduction techniques were achieved by using automatic exposure control and/or adjustment of mA and/or kV according to patient size and/or use of iterative reconstruction technique. COMPARISON: None HISTORY: Abdominal pain FINDINGS: Lower chest: No consolidation. No pleural effusion or pneumothorax. Liver: No suspicious liver lesions. Portal veins appear patent. Gallbladder: There is a few calcified gallstones. Possible trace free fluid between the gallbladder and liver. Dilated extrahepatic bile duct up to 14 mm. Spleen: Normal size. Pancreas: No suspicious pancreatic lesions. The pancreatic duct is not dilated. Adrenal glands: No adrenal nodules. Kidneys: No hydronephrosis or obstructing renal stones. Bladder / Pelvic organs: Unremarkable. Bowel: No bowel obstruction. No abnormal bowel wall thickening. The appendix is normal. Lymph nodes: No retroperitoneal, mesenteric, or pelvic lymphadenopathy. Peritoneum / Retroperitoneum: No free fluid or air within the abdomen. Vessels: No infrarenal aortic aneurysm. Bones and soft tissues: No suspicious lesion in the bones. Right hip arthroplasty. Fixation changes of the lumbar spine. IMPRESSION: Cholelithiasis. Possible trace free fluid between the liver and gallbladder. Consider evaluation for acute cholecystitis. Dilated extrahepatic bile duct up to 14 mm, possibly reactive or due to choledocholithiasis. Consider MRCP. Electronically signed by Clemente Blanchard 07-29-2025 7:14 PM Chest X-Ray 07/29/25 17:37 Chest radiograph, one view History: Flank pain Comparison: None Findings: Single AP view of the chest performed. No focal consolidation or pleural effusion. No pneumothorax. The cardiomediastinal silhouette is within normal limits. Normal pulmonary vascularity. No evidence for lymphadenopathy. No visualized bony or soft tissue abnormality. Impression: Normal chest radiograph Electronically signed by Clemente Blanchard 07-29-2025 6:16 PM Gallbladder Ultrasound 07/29/25 19:22 Exam(s): US GALLBLADDER EXAM: US Abdomen Limited, Gallbladder CLINICAL HISTORY: stones, pain. TECHNIQUE: Real-time ultrasound of the right upper quadrant with image documentation. COMPARISON: CT abdomen and pelvis with contrast performed earlier FINDINGS: Liver: The liver is hyperechoic measuring at least 21 cm in length. Gallbladder: Echogenic gallstones noted in the gallbladder. The gallbladder wall measures 3.2 mm with questionable intramural edema or subtle pericholecystic fluid. There is a reported negative sonographic Walsh's sign. Common bile duct: The common bile duct is dilated, measuring up to 1.6 cm near the rambo hepatis. No stones. Pancreas: Visualized segments of the pancreas are unremarkable. Right kidney: The right kidney measures 10.9 cm. Aorta: The proximal aorta is normal in caliber. Inferior vena cava: The IVC is unremarkable. Free fluid: No free fluid. IMPRESSION: 1. Echogenic gallstones noted in the gallbladder. The gallbladder wall measures 3.2 mm with questionable intramural edema or subtle pericholecystic fluid. There is a reported negative sonographic Walsh's sign. Findings are somewhat equivocal sonographically; however, acute cholecystitis is difficult to entirely exclude. Functional radionuclide imaging of the gallbladder may be performed in clinically equivocal cases. 2. The common bile duct is dilated, measuring up to 1.6 cm near the rambo hepatis. 3. The liver is hyperechoic measuring at least 21 cm in length. Electronically signed by: Moe Stone MD 07/29/25 21:03 PM Cholangiopancreatography MRI 07/29/25 22:17 EXAM: MR MRCP CLINICAL HISTORY: abn lfts TECHNIQUE: Multiplanar multisequence magnetic resonance imaging of the abdomen without intravenous contrast. COMPARISON: None. FINDINGS: Liver: Normal size and morphology. Homogeneous signal intensity on T2-weighted images. No focal hepatic lesions. Gallbladder and bile ducts: Gallbladder is well distended with multiple T2 hypointense filling defects noted within largest measuring approximately 11 mm with suggestion of wall thickening measuring up to 3 mm. Dilated common bile duct measuring up to 9 mm in caliber. Evidence of 4.5 mm T2 hypointense filling defect noted in distal CBD - likely choledocholithiasis. Moderate bilobar intrahepatic biliary radical dilatation. Pancreas: Normal size and contour. Homogeneous signal intensity on T2-weighted images. No masses or cystic lesions. Pancreatic Duct: Pancreatic duct is normal in caliber. No evidence of ductal dilatation or filling defects. Spleen: Normal size and appearance. Homogeneous signal intensity. Kidneys: Normal size, shape, and position of both kidneys. Homogeneous signal intensity on T2-weighted images. No renal stones, masses, or hydronephrosis. Mild perinephric fat stranding is seen on both sides. Adrenal Glands: Normal size and morphology bilaterally. No adrenal masses. Surrounding Structures: No evidence of free fluid or abnormal fluid collections in the abdomen. Normal appearance of the visualized bowel loops. IMPRESSION: Gallbladder is well distended with multiple T2 hypointense filling defects noted within largest measuring approximately 11 mm with suggestion of wall thickening measuring up to 3 mm. Dilated common bile duct measuring up to 9 mm in caliber. Evidence of 4.5 mm T2 hypointense filling defect noted in distal CBD - likely choledocholithiasis. Moderate bilobar intrahepatic biliary radical dilatation. Mild perinephric fat stranding is seen on both sides. Electronically signed by Carlos Esparza 07-30-2025 01:36 AM
--- NOTE | 2025-07-30 09:50 | Surgery Progress Note ---
<Statement entered by Unique Garcia MD - 07/30/25 11:12> I independently saw and examined the patient, and I agree with the assessment and plan of care. Date of Service July 30, 2025 Assessment & Plan (1) Elevated liver enzymes: (2) Acute cholecystitis: Plan Patient here with complaints of abdominal pain with concern of elevated LFTs and possible acute cholecystitis. - Patient with elevated LFTs and she did undergo MRCP imaging. Results positive for choledocholithiasis - GI on board and planning for ERCP later today - Discussed with patient about cholecystectomy during her hospital stay and she is agreeable at this time. Will follow-up ERCP and plans for surgical intervention hopefully sometime this weekend. -Continue to trend labs and continue IV antibiotics - Medical management per primary team, surgery will follow and provide addit ional recommendations/plans once ERCP is completed today. Admission and Anticipated Discharge Date Admission Date: July 29, 2025 Subjective Patient seen and evaluated this morning. States that she is feeling better than time of admission. Denies any current nausea or vomiting VSS, afebrile, WBC wnl LFTs slightly downtrended this morning Patient underwent MRCP imaging which did reveal choledocholithiasis, GI on board Physical Exam Constitutional: WD/WN, vitals as above Respiratory: normal respiratory effort, lungs clear to auscultation Cardiovascular: Rate/Rhythm: regular rate Gastrointestinal (Abdomen): Abdomen soft, nondistended, tenderness palpation in the right upper quadrant/epigastric region No rebound, guarding or signs of peritonitis Skin: no rashes, warm and dry Results & Data Vital Signs (Past 12 Hours) Vital Signs Temp Pulse Pulse Resp BP Pulse Ox O2 Del Method 07/30/25 03:08 58 L 15 99 07/29/25 23:48 61 11 L 97 07/29/25 23:00 36.5 C 64 16 166/100 H 96 Room Air 07/29/25 23:00 36.5 C 64 16 166/100 H 96 Room Air 07/29/25 22:36 66 18 153/93 H 98 Room Air FiO2 07/30/25 03:08 21 07/29/25 23:48 21 07/29/25 23:00 07/29/25 23:00 07/29/25 22:36 PG Care Time/CCT Total # of Minutes Spent Total Time Spent with Patient: Total time spent is greater than 50% in coordination of care (as documented) at patient's floor/unit and/or counseling patient: Coding [place] [address] SUB INP/OBS CARE 09/19MIN Patient Type Established History Problem Focused Exam Problem Focused Medical Decision Making Straight Forward Diagnoses Elevated liver enzymes R74.8 Acute cholecystitis K81.0
--- NOTE | 2025-07-30 09:54 | Electrocardiogram Report ---
Test Reason : Blood Pressure : */* mmHG Vent. Rate : 74 BPM Atrial Rate : 74 BPM P-R Int : 146 ms QRS Dur : 94 ms QT Int : 408 ms P-R-T Axes : 13 -42 54 degrees QTcB Int : 452 ms Normal sinus rhythm Left axis deviation Incomplete right bundle branch block Minimal voltage criteria for LVH, may be normal variant Septal infarct , age undetermined Abnormal ECG When compared with ECG of 08-May-2024 11:32, Incomplete right bundle branch block is now Present Septal infarct is now Present Confirmed by Shaq Engel ([id number]) on 07/30/2025 9:54:31 AM Referred By: REFERRED SELF Confirmed By: Shaq Engel
--- NOTE | 2025-07-30 10:21 | Gastrointestinal Consultation ---
Date of Consultation July 30, 2025 Assessment & Plan (1) Elevated liver enzymes: 70 year old female with history of hypertension, hyperlipidemia, JAZMINE on CPAP, pulmonary hypertension, prediabetes, PMR, uterine cancer s/p surgery admitted w/ post-prandial abd pain associated w/ nausea but no emesis. She is afebrile w/o leukocytosis w/ elevated transaminases w/ Tb 1.2, AST 447, ALT 602, ALKP 113 and imaging w/ distended gallbladder w/ gallstones, CBD dilation and report of a filling defect in distal CBD concerning for choledocholithiasis. Maintain NPO status Plan for ERCP today Antiemetics PRN Analgesia PRN Continue antibiotics CCY per general surgery I spent a total of 60 minutes on the date of service in review of patient's record, and previously obtained information in person and appropriate medical visit, discussion and education of plan, with patient and/or caregiver, placing orders for tests/referral/procedures as medically necessary and documentation of pertinent clinical information in patient's medical records for their visit today. Supervising Physician Co-Signing Physician Notes I saw and examined this patient with our nurse practitioner and agree with her assessment and plan. Clinical picture consistent with gallbladder disease complicated by choledocholithiasis. No signs of cholangitis at this time. Will proceed with ERCP today to attempt stone extraction. Possibly ultimate cholecystectomy on this admission. Continue antibiotics. History of Present Illness Reason for Consultation: elevated LFTs Requesting Physician: elevated LFTs Attending Physician: Hussein Whitfield MD History of Present Illness 70 year old female with history of hypertension, hyperlipidemia, JAZMINE on CPAP, pulmonary hypertension, prediabetes, PMR, uterine cancer s/p surgery admitted w/ post-prandial abd pain associated w/ nausea but no emesis. In the ED imaging concerning for gallstones, cholecystitis, dilated CBD and CBD stones. WBC 4 Tb 1.5 --> 1.2 AST 856 --> 447 ALT 556 --> 602 ALKP 124 --> 113 Lipase 48 MRCP 2024: Gallbladder is well distended with multiple T2 hypointense filling defects noted within largest measuring approximately 11 mm with suggestion of wall thickening measuring up to 3 mm. Dilated common bile duct measuring up to 9 mm in caliber. Evidence of 4.5 mm T2 hypointense filling defect noted in distal CBD - likely choledocholithiasis ABD US 2024: Echogenic gallstones noted in the gallbladder. The gallbladder wall measures 3.2 mm with questionable intramural edema or subtle pericholecystic fluid. There is a reported negative sonographic Walsh's sign. Findings are somewhat equivocal sonographically; however, acute cholecystitis is difficult to entirely exclude. Functional radionuclide imaging of the gallbladder may be performed in clinically equivocal cases. The common bile duct is dilated, measuring up to 1.6 cm near the rambo hepatis. CTAP 2024: Cholelithiasis. Possible trace free fluid between the liver and gallbladder. Consider evaluation for acute cholecystitis. Dilated extrahepatic bile duct up to 14 mm, possibly reactive or due to choledocholithiasis. Consider MRCP. Allergies Allergy/AdvReac Type Severity Reaction Status Date / Time codeine AdvReac Intermediate NAUSEA & Verified 07/29/25 18:49 VOMITING morphine AdvReac Intermediate GI SYMPTOMS Verified 07/29/25 18:49 oxycodone AdvReac Intermediate GI SYMPTOMS Verified 07/29/25 18:49 Home Medications Medication Instructions Recorded Confirmed Type carvedilol 6.25 mg tablet 6.25 mg PO BID 05/05/24 07/29/25 History celecoxib 100 mg capsule (Celebrex) 100 mg PO BID 05/05/24 07/29/25 History duloxetine 60 mg capsule,delayed 60 mg PO QAM 05/05/24 07/29/25 History release hydrochlorothiazide 12.5 mg tablet 12.5 mg PO QAM 05/05/24 07/29/25 History metformin 500 mg tablet 500 mg PO BID 05/05/24 07/29/25 History fxuyrcoo-mez-rzjko acid 0.4 1 tab PO DAILY 05/05/24 07/29/25 History mg-lycopene 300 mcg-lutein 250 mcg tablet (Centrum Silver) amoxicillin 500 mg tablet 2,000 mg PO DIRECTED PRN 1 HR 07/29/25 07/29/25 History PRIOR TO DENTAL PROCEDURES atorvastatin 40 mg tablet 40 mg PO DAILY 07/29/25 07/29/25 History zinc acetate 50 mg (zinc) capsule 50 mg PO DAILY 07/29/25 07/29/25 History Patient History Medical History (Updated 07/30/25 @ 11:58 by Latasha Guillory PA-C) Generalized osteoarthritis Sleep apnea CPAP-compliant Prediabetes metformin HTN (hypertension) controlled, stable per pt History of uterine cancer Surgical History (Updated 07/30/25 @ 11:58 by Latasha Guillory PA-C) History of carpal tunnel surgery of right wrist History of lumbar laminectomy for spinal cord decompression " x [address] Dr. Cobian" History of total right knee replacement (TKR) "Dr. Haji 02/24/14" S/P KENIA-BSO (total abdominal hysterectomy and bilateral salpingo-oophorectomy) "secondary to stage 1 gr1 endometrial Ca 01/28/12" H/O colonoscopy H/O: Hx of colonoscopy History of lumbar laminectomy for spinal cord decompression x2 2007, 2009 - Dr. Cobian History of total bilateral knee replacement (TKR) S/P KENIA-BSO (total abdominal hysterectomy and bilateral salpingo-oophorectomy) due to uterine cancer History of carpal tunnel release of both wrists Hx of section (1985) Social History Smoking Status: Never smoker Second Hand Exposure: No; Do You Dip or Chew Tobacco: No; Hx Alcohol Use: Yes Alcohol type: wine Hx Substance Use: No Preferred Language: Tamazight Communication Ability: Effective Outside [employer] Sales Required: No Beliefs That Will Affect Care: None Current Living Situation: Spouse Other Information That Helps Us Care for You: No Feels Safe at Home: Yes Safety Concerns: Feels Safe At This Time Assistive Devices: None Review of Systems Review of Systems: All other findings negative except as noted in HPI. Physical Exam Constitutional: WD/WN, vitals as above Respiratory: normal respiratory effort, lungs clear to auscultation Cardiovascular: RRR, no murmur, no edema Gastrointestinal (Abdomen): normal bowel sounds, soft, nontender, no hepatosplenomegaly Skin: no rashes, warm and dry Results & Data Vital Signs (Past 12 Hours) Vital Signs Temp Pulse Pulse Resp BP Pulse Ox O2 Del Method 07/30/25 03:08 58 L 15 99 07/29/25 23:48 61 11 L 97 07/29/25 23:00 97.7 F 64 16 166/100 H 96 Room Air 07/29/25 23:00 97.7 F 64 16 166/100 H 96 Room Air 07/29/25 22:36 66 18 153/93 H 98 Room Air FiO2 07/30/25 03:08 21 07/29/25 23:48 21 07/29/25 23:00 07/29/25 23:00 07/29/25 22:36 Laboratory Results 07/30/25 07/29/25 Range/Units 07:03 17:49 WBC 4.74 L 7.02 (4.8-10.8) K/ul RBC 4.52 4.77 (4.20-5.40) M/uL Hgb 13.3 14.1 (12.0-16.0) g/dL Hct 39.9 41.6 (37.0-47.0) % MCV 88.3 87.2 (80.0-100.0) fL MCH 29.4 29.6 (25.0-34.0) pg MCHC 33.3 33.9 (32.0-36.0) g/dL RDW Std Deviation 43.8 43.1 (36.4-46.3) fL RDW Coeff of Emilee 13.6 13.6 (11.5-14.5) % Plt Count 192 215 (130-400) K/uL MPV 10.2 10.1 (9.4-12.4) fL Immature Gran % (Auto) 0.0 0.3 % Neut % (Auto) 54.6 69.5 % Lymph % (Auto) 25.3 18.8 % Edgar % (Auto) 9.3 7.8 % Eos % (Auto) 9.7 3.0 % Baso % (Auto) 1.1 0.6 % Neut # (Auto) 2.59 4.88 (1.40-6.50) K/uL Lymph # (Auto) 1.20 1.32 (1.20-3.40) K/uL Edgar # (Auto) 0.44 0.55 (0.11-0.59) K/uL Eos # (Auto) 0.46 0.21 (0.00-0.50) K/uL Baso # (Auto) 0.05 0.04 (0.00-0.20) K/uL Immature Gran # (Auto) 0.00 L 0.02 (0.01-0.20) K/uL PT 10.3 (9.0-12.0) Seconds INR 1.0 (0.9-1.1) Sodium 142 139 (136-145) mmol/L Potassium 3.6 3.6 (3.5-5.1) mmol/L Chloride 106 101 (98-107) mmol/L Carbon Dioxide 26 29 (21-32) mmol/L Anion Gap 10 9 (3-11) BUN 19 24 H (6-23) mg/dl Creatinine 1.04 1.01 (0.6-1.2) mg/dl Est Cr Clr Drug Dosing 56.7 58.4 ml/min eGFR 57.11 59.15 BUN/Creatinine Ratio 18.3 23.8 H (10-20) Glucose 112 H 151 H (70-99(Fasting)) mg/dl Calcium 9.2 9.9 (8.6-10.3) mg/dl Total Bilirubin 1.2 H 1.5 H (0.2-1.0) mg/dl AST 447 H 856 H (13-39) U/L ALT 602 H 556 H (7-52) U/L Alkaline Phosphatase 113 H 124 H (34-104) U/L Troponin I High Sens 3.9 (0-14) pg/ml Total Protein 6.4 7.2 (6.0-8.3) gm/dl Albumin 3.9 4.1 (3.4-5.0) gm/dl Globulin 2.5 3.1 (2.5-4.0) gm/dl Albumin/Globulin Ratio 1.6 1.3 (0.9-2) Lipase 48 (11-82) U/L Hepatitis C Ab Screen Negative (Negative) Diagnostic Findings Abdomen/Pelvis CT 07/29/25 17:37 EXAMINATION: CT of the abdomen and pelvis performed after the administration of IV contrast TECHNIQUE: Helical CT images from the lung bases through the symphysis pubis were obtained with contrast. Coronal and sagittal reformatted images were generated at a workstation for further assessment. Dose reduction techniques were achieved by using automatic exposure control and/or adjustment of mA and/or kV according to patient size and/or use of iterative reconstruction technique. COMPARISON: None HISTORY: Abdominal pain FINDINGS: Lower chest: No consolidation. No pleural effusion or pneumothorax. Liver: No suspicious liver lesions. Portal veins appear patent. Gallbladder: There is a few calcified gallstones. Possible trace free fluid between the gallbladder and liver. Dilated extrahepatic bile duct up to 14 mm. Spleen: Normal size. Pancreas: No suspicious pancreatic lesions. The pancreatic duct is not dilated. Adrenal glands: No adrenal nodules. Kidneys: No hydronephrosis or obstructing renal stones. Bladder / Pelvic organs: Unremarkable. Bowel: No bowel obstruction. No abnormal bowel wall thickening. The appendix is normal. Lymph nodes: No retroperitoneal, mesenteric, or pelvic lymphadenopathy. Peritoneum / Retroperitoneum: No free fluid or air within the abdomen. Vessels: No infrarenal aortic aneurysm. Bones and soft tissues: No suspicious lesion in the bones. Right hip arthroplasty. Fixation changes of the lumbar spine. IMPRESSION: Cholelithiasis. Possible trace free fluid between the liver and gallbladder. Consider evaluation for acute cholecystitis. Dilated extrahepatic bile duct up to 14 mm, possibly reactive or due to choledocholithiasis. Consider MRCP. Electronically signed by Clemente Blanchard 07-29-2025 7:14 PM Chest X-Ray 07/29/25 17:37 Chest radiograph, one view History: Flank pain Comparison: None Findings: Single AP view of the chest performed. No focal consolidation or pleural effusion. No pneumothorax. The cardiomediastinal silhouette is within normal limits. Normal pulmonary vascularity. No evidence for lymphadenopathy. No visualized bony or soft tissue abnormality. Impression: Normal chest radiograph Electronically signed by Clemente Blanchard 07-29-2025 6:16 PM Gallbladder Ultrasound 07/29/25 19:22 Exam(s): US GALLBLADDER EXAM: US Abdomen Limited, Gallbladder CLINICAL HISTORY: stones, pain. TECHNIQUE: Real-time ultrasound of the right upper quadrant with image documentation. COMPARISON: CT abdomen and pelvis with contrast performed earlier FINDINGS: Liver: The liver is hyperechoic measuring at least 21 cm in length. Gallbladder: Echogenic gallstones noted in the gallbladder. The gallbladder wall measures 3.2 mm with questionable intramural edema or subtle pericholecystic fluid. There is a reported negative sonographic Walsh's sign. Common bile duct: The common bile duct is dilated, measuring up to 1.6 cm near the rambo hepatis. No stones. Pancreas: Visualized segments of the pancreas are unremarkable. Right kidney: The right kidney measures 10.9 cm. Aorta: The proximal aorta is normal in caliber. Inferior vena cava: The IVC is unremarkable. Free fluid: No free fluid. IMPRESSION: 1. Echogenic gallstones noted in the gallbladder. The gallbladder wall measures 3.2 mm with questionable intramural edema or subtle pericholecystic fluid. There is a reported negative sonographic Walsh's sign. Findings are somewhat equivocal sonographically; however, acute cholecystitis is difficult to entirely exclude. Functional radionuclide imaging of the gallbladder may be performed in clinically equivocal cases. 2. The common bile duct is dilated, measuring up to 1.6 cm near the rambo hepatis. 3. The liver is hyperechoic measuring at least 21 cm in length. Electronically signed by: Moe Stone MD 07/29/25 21:03 PM Cholangiopancreatography MRI 07/29/25 22:17 EXAM: MR MRCP CLINICAL HISTORY: abn lfts TECHNIQUE: Multiplanar multisequence magnetic resonance imaging of the abdomen without intravenous contrast. COMPARISON: None. FINDINGS: Liver: Normal size and morphology. Homogeneous signal intensity on T2-weighted images. No focal hepatic lesions. Gallbladder and bile ducts: Gallbladder is well distended with multiple T2 hypointense filling defects noted within largest measuring approximately 11 mm with suggestion of wall thickening measuring up to 3 mm. Dilated common bile duct measuring up to 9 mm in caliber. Evidence of 4.5 mm T2 hypointense filling defect noted in distal CBD - likely choledocholithiasis. Moderate bilobar intrahepatic biliary radical dilatation. Pancreas: Normal size and contour. Homogeneous signal intensity on T2-weighted images. No masses or cystic lesions. Pancreatic Duct: Pancreatic duct is normal in caliber. No evidence of ductal dilatation or filling defects. Spleen: Normal size and appearance. Homogeneous signal intensity. Kidneys: Normal size, shape, and position of both kidneys. Homogeneous signal intensity on T2-weighted images. No renal stones, masses, or hydronephrosis. Mild perinephric fat stranding is seen on both sides. Adrenal Glands: Normal size and morphology bilaterally. No adrenal masses. Surrounding Structures: No evidence of free fluid or abnormal fluid collections in the abdomen. Normal appearance of the visualized bowel loops. IMPRESSION: Gallbladder is well distended with multiple T2 hypointense filling defects noted within largest measuring approximately 11 mm with suggestion of wall thickening measuring up to 3 mm. Dilated common bile duct measuring up to 9 mm in caliber. Evidence of 4.5 mm T2 hypointense filling defect noted in distal CBD - likely choledocholithiasis. Moderate bilobar intrahepatic biliary radical dilatation. Mild perinephric fat stranding is seen on both sides. Electronically signed by Carlos Esparza 07-30-2025 01:36 AM PG Care Time/CCT Total # of Minutes Spent Total Time Spent with Patient: Total time spent is greater than 50% in coordination of care (as documented) at patient's floor/unit and/or counseling patient: Coding Level of Care Code 55748 INT INP/OBS CARE 2/55MIN Diagnoses Elevated liver enzymes R74.8
[2025-07-30] MEDS: CEROVITE ADV FORMULA TAB PO SCH (10:40)
[2025-07-30] MEDS: PROMETHAZINE 6.25 MG/50.25 ML BAG IV PRN (13:48)
[2025-07-30] MEDS ORDERED: ONDANSETRON INJ 2 MG/ML 2 ML VIAL ONE (15:09)
[2025-07-30] MEDS ORDERED: PROPOFOL IV EMULSION 10 MG/ML 20 ML VIAL IV ONE (15:09)
[2025-07-30] MEDS ORDERED: DEXAMETHASONE SOD INJ 4 MG/ML VIAL ONE (15:09)
[2025-07-30] MEDS ORDERED: LIDOCAINE 2% 2 ML VIAL/AMP(20MG/ML) INFIL ONE (15:09)
[2025-07-30] MEDS ORDERED: MIDAZOLAM HCL 1 MG/ML 2ML VIAL ONE (15:13)
[2025-07-30] MEDS ORDERED: ROCURONIUM BROMIDE 10 MG/ML 5 ML VIAL IV ONE (15:19)
[2025-07-30] MEDS ORDERED: SUGAMMADEX SODIUM 200 MG/2 ML VIAL IV ONE ×3 (17:26→17:34)
--- NOTE | 2025-07-30 17:40 | Anesthesiology Consultation ---
Date of Service July 30, 2025 Assessment & Plan Chart Review Chart Review: Acceptable Risk for Surgery Consults Requested none History Surgery Operation Date: 07/30/25 12:35 Proposed Procedures p Endoscopic Retrograde Cholangiopancreatogram - Shaquille Fitzgerald MD Height/Weight Height: 5 ft 5 in Weight: 98.1 kg Allergies Allergy/AdvReac Type Severity Reaction Status Date / Time codeine AdvReac Intermediate NAUSEA & Verified 07/29/25 18:49 VOMITING morphine AdvReac Intermediate GI SYMPTOMS Verified 07/29/25 18:49 oxycodone AdvReac Intermediate GI SYMPTOMS Verified 07/29/25 18:49 Medications Home Medications Medication Instructions Recorded Confirmed Last Taken carvedilol 6.25 mg tablet 6.25 mg PO BID 05/05/24 07/29/25 07/29/25 08:00 celecoxib 100 mg capsule (Celebrex) 100 mg PO BID 05/05/24 07/29/25 07/29/25 08:00 duloxetine 60 mg capsule,delayed 60 mg PO QAM 05/05/24 07/29/25 07/29/25 release hydrochlorothiazide 12.5 mg tablet 12.5 mg PO QAM 05/05/24 07/29/25 07/29/25 metformin 500 mg tablet 500 mg PO BID 05/05/24 07/29/25 07/29/25 08:00 edwkbmaj-aoq-uiiwv acid 0.4 1 tab PO DAILY 05/05/24 07/29/25 07/29/25 mg-lycopene 300 mcg-lutein 250 mcg tablet (Centrum Silver) amoxicillin 500 mg tablet 2,000 mg PO DIRECTED PRN 1 HR 07/29/25 07/29/25 Unknown PRIOR TO DENTAL PROCEDURES atorvastatin 40 mg tablet 40 mg PO DAILY 07/29/25 07/29/25 07/29/25 zinc acetate 50 mg (zinc) capsule 50 mg PO DAILY 07/29/25 07/29/25 07/29/25 Active Medications Generic Name Dose Route Start Last Admin Trade Name Freq PRN Reason Stop Dose Admin Carvedilol 6.25 mg 07/30/25 09:00 07/30/25 10:40 Carvedilol 6.25 Mg Tab PO 08/29/25 08:59 Not Given BID ERAN Duloxetine HCl 60 mg 07/30/25 09:00 07/30/25 10:40 Duloxetine Hcl 60 Mg Cap PO 08/29/25 08:59 60 mg QAM ERAN Administration Promethazine HCl 6.25 mg in 50.25 mls @ 201 mls/hr 07/29/25 22:18 07/30/25 14:32 Phenergan IV 08/28/25 22:17 Infused Q6H PRN Infusion Nausea And Vomiting Piperacillin Sod/Tazobactam Sod 4.5 gm in 100 mls @ 25 mls/hr 07/30/25 02:00 07/30/25 14:32 Zosyn IV 08/09/25 01:59 Infused Q8H ERAN Infusion Protocol Multivitamins/Minerals 1 tab 07/30/25 09:00 07/30/25 10:40 Cerovite Adv Formula Tab PO 08/29/25 08:59 1 tab DAILY ERAN Administration NPO Date Last Intake of Fluids: 07/29/25 Time Last Intake of Fluids: 12:00 Date Last Intake of Solids: 07/29/25 Time Last Intake of Solids: 12:00 Past Medical History Medical History (Updated 07/30/25 @ 11:58 by Latasha Guillory PA-C) Generalized osteoarthritis Sleep apnea CPAP-compliant Prediabetes metformin HTN (hypertension) controlled, stable per pt History of uterine cancer Past Surgical History Surgical History (Updated 07/30/25 @ 11:58 by Latasha Guillory PA-C) History of carpal tunnel surgery of right wrist History of lumbar laminectomy for spinal cord decompression " x 2 Dr. Cobian" History of total right knee replacement (TKR) "Dr. Haji 02/24/14" S/P KENIA-BSO (total abdominal hysterectomy and bilateral salpingo-oophorectomy) "secondary to stage 1 gr1 endometrial Ca 01/28/12" H/O colonoscopy H/O: Hx of colonoscopy History of lumbar laminectomy for spinal cord decompression x2 2007, 2009 - Dr. Cobian History of total bilateral knee replacement (TKR) S/P KENIA-BSO (total abdominal hysterectomy and bilateral salpingo-oophorectomy) due to uterine cancer History of carpal tunnel release of both wrists Hx of section (1985) Social History Smoking Status: Never smoker Do You Dip or Chew Tobacco: No Hx Alcohol Use: Yes Alcohol type: wine alcohol intake frequency: 0-2 drinks per day Alcohol Intake Frequency Comment: A glass of wine at night. None in last 2 weeks. Hx Substance Use: No substance use type: does not use Physical Exam Vital Signs Last Vital Signs Temp 36.6 C 07/30/25 15:57 Pulse 78 07/30/25 15:57 Resp 20 07/30/25 15:57 BP 167/124 H 07/30/25 15:57 Pulse Ox 92 07/30/25 15:57 O2 Del Method Room Air 07/30/25 15:57 FiO2 21 07/30/25 03:08 Testing Laboratory Results 07/30/25 07:03 07/30/25 07:03 PT 10.3 Seconds (9.0-12.0) 07/29/25 17:49 INR 1.0 (0.9-1.1) 07/29/25 17:49
--- NOTE | 2025-07-30 17:40 | GI REPORT ---
[facility] Patient: CHUCK GARDUNO : 1955 Sex at : Female Age: 70 Years Procedure: ERCP Date: 07/30/2025 Attending Physician: Shaquille Fitzgerald MD Referring MD: Referred Self; Hussein Whitfield Md Indications: - Bile duct stone(s) - Elevated liver enzymes - Abnormal MRCP Medications: - General Anesthesia - Indomethacin 100 mg ME - See the Anesthesia note for documentation of the administered medications Complications: - No immediate complications. Estimated Blood Loss: - Estimated blood loss was minimal. Procedure: - Prior to the procedure, a History and Physical was performed, and patient medications, allergies and sensitivities were reviewed. The patient's tolerance of previous anesthesia was reviewed. - The risks and benefits of the procedure and the sedation options and risks were discussed with the patient. All questions were answered and informed consent was obtained. - Prophylactic Antibiotics: The patient requires prophylactic antibiotics as clinically indicated based on published guidelines for the planned ERCP. The patient received antibiotic therapy before the procedure. - The ercp scope was introduced through the mouth and advanced to the duodenum and used to inject contrast into the bile duct. - The ERCP was accomplished without difficulty. - The patient tolerated the procedure well. - The ERCP was accomplished with ease. Findings: - The high school math tutor film was normal. Pancreatic duct not cannulated. - The bile duct was deeply cannulated with the short-nosed sphincterotome. Contrast was injected. I personally interpreted the bile duct images. Image quality was excellent. The lower third of the main duct contained filling defect(s) thought to be stones. - A 10 mm biliary sphincterotomy was made with a short nose sphincterotome using ERBE electrocautery. There was no post-sphincterotomy bleeding. - The biliary tree was swept with a 12 mm balloon starting at the bifurcation. Many stones were removed. No stones remained. Impression: - A filling defects consistent with stones was seen on the cholangiogram. - Choledocholithiasis was found. Complete removal was accomplished by biliary sphincterotomy and balloon extraction. - A biliary sphincterotomy was performed. - The biliary tree was swept. Recommendation: - Continue present medications. - Watch for pancreatitis, bleeding, perforation, and cholangitis. - Clear liquid diet. Procedure Code(s): - 55276, Endoscopic retrograde cholangiopancreatography (ERCP); with removal of calculi/debris from biliary/pancreatic duct(s) - 51779, Endoscopic retrograde cholangiopancreatography (ERCP); with sphincterotomy/papillotomy - 75442, Endoscopic catheterization of the biliary ductal system, radiological supervision and interpretation Diagnosis Code(s): - R74.8, Abnormal levels of other serum enzymes - K80.50, Calculus of bile duct without cholangitis or cholecystitis without obstruction - R93.2, Abnormal findings on diagnostic imaging of liver and biliary tract CPT(R) - 2023 copyright [employer]. All Rights Reserved. The CPT codes, CCI edits and ICD codes generated are intended as suggestions and were generated based on input data. These codes are preliminary and upon office machine technician review may be revised to meet current compliance and payer requirements. The provider is responsible for the final determination of appropriate codes, and modifiers. Shaquille Fitzgerald MD This document has been electronically signed. Note Initiated:07/30/2025 Note Completed:07/30/2025 5:39 PM \\[email or web address]\Results\[email or web address]\[id number]
[2025-07-30] MEDS ORDERED: PROMETHAZINE HCL 6.25 MG in SODIUM CHLORIDE 0.9% 50 ML IV PRN (17:42)
[2025-07-30] MEDS ORDERED: ONDANSETRON INJ 2 MG/ML 2 ML VIAL IV PRN (17:42)
[2025-07-30] MEDS ORDERED: HYDROmorphone INJ 2 MG/ML SYR/VIAL IV PRN (17:42)
[2025-07-30] MEDS ORDERED: ATROPINE SULFATE 0.1 MG/ML 10ML SYR IV PRN (17:42)
--- NOTE | 2025-07-30 17:58 | Anesthesiology Progress Note ---
Date of Service July 30, 2025 Anesthesia Post Procedure Vital Signs Vital Signs: Temp Pulse Pulse Pulse Resp BP BP 07/30/25 15:57 36.6 C 78 20 167/124 H 07/30/25 14:54 36.7 C 69 18 183/112 H 170/91 H 07/30/25 11:58 36.7 C 64 14 156/86 H 07/30/25 08:00 36.6 C 78 13 152/86 H 07/30/25 03:08 58 L 15 07/29/25 23:48 61 11 L 07/29/25 23:00 36.5 C 64 16 166/100 H 07/29/25 23:00 36.5 C 64 16 166/100 H 07/29/25 22:36 66 18 153/93 H 07/29/25 20:40 62 18 147/93 H 07/29/25 18:35 07/29/25 18:34 75 18 150/85 H Pulse Ox O2 Del Method FiO2 07/30/25 15:57 92 Room Air 07/30/25 14:54 96 Room Air 07/30/25 11:58 95 Room Air 07/30/25 08:00 96 Room Air 07/30/25 03:08 99 21 07/29/25 23:48 97 21 07/29/25 23:00 96 Room Air 07/29/25 23:00 96 Room Air 07/29/25 22:36 98 Room Air 07/29/25 20:40 95 Room Air 07/29/25 18:35 96 Room Air 07/29/25 18:34 96 Room Air Pain Intensity Left Lower Abdomen: Pain Intensity: 3 Transfer of Care Handoff Completed per policy Notes Mental Status: alert / awake / arousable and participated in evaluation Patient Amnestic to Procedure: Yes Nausea / Vomiting: adequately controlled Pain: adequately controlled Airway Patency, RR, SpO2: stable & adequate BP & HR: stable & adequate Hydration State: stable & adequate Anesthetic Complications: no major complications apparent and Pt Satisfied with anesthetic care
[2025-07-30] MEDS: GLUCAGON FOR INJ 1 MG VIAL ONE (22:59)
[2025-07-30] MEDS: INDOMETHACIN 50 MG SUPP PR ONE (22:59)
[2025-07-30] MEDS: hydroCHLOROthiazide 25 MG TAB PO SCH (22:59)
[2025-07-30] MEDS ORDERED: Nursing to Pharmacy Communication SCH (23:00)
--- NOTE | 2025-07-31 07:40 | Fluoroscopy Report ---
[place] ERCP biliary ductal CLINICAL HISTORY: orcholecystectomy COMPARISON STUDY: CT 07/29/2025 FLUOROSCOPY TIME: 3 minutes and 41.9 seconds FLUOROSCOPY IMAGES: 5 EXPOSURE DOSE: 50.563 mGy FINDINGS: Endoscope within the duodenum. Cannulation of the common bile duct with balloon sweep. Ther e is tapered narrowing of the mid to distal common bile duct. No definite choledocholithiasis or high -grade biliary stricture identified. Contrast noted within the duodenum. IMPRESSION: Fluoroscopic assistance as above. ACT 112: Negative or not required by law. Electronically signed by: Ellis Horner M.D. 07/31/2025 7:38 AM
--- NOTE | 2025-07-31 08:37 | Gastroenterology Progress Note ---
Date of Service July 31, 2025 Assessment & Plan (1) Choledocholithiasis: Plan: Doing well after procedure. Ready for cholecystectomy. Please call GI if needed again. Admission and Anticipated Discharge Date Admission Date: July 29, 2025 Subjective No problems post procedure. Ready for surgery Physical Exam Physical Exam: She looks well. Results & Data Vital Signs (Past 12 Hours) Vital Signs Temp Pulse Pulse Resp BP Pulse Ox O2 Del Method 07/31/25 05:00 36.6 C 71 16 132/88 96 Room Air, CPAP 07/31/25 04:29 66 15 94 07/31/25 01:20 36.5 C 70 17 129/82 94 Room Air 07/30/25 21:30 36.6 C 75 20 138/71 94 Nasal Cannula 07/30/25 21:00 72 17 93 07/30/25 20:40 70 19 144/68 H 95 Room Air O2 Flow Rate FiO2 07/31/25 05:00 07/31/25 04:29 21 07/31/25 01:20 07/30/25 21:30 2 07/30/25 21:00 21 07/30/25 20:40
[2025-07-31 08:49] LABS: Hematocrit (blood only) 45.8 % (37.0-47.0); Hemoglobin 15.2 g/dL (12.0-16.0); Mean Corpuscular Hemoglobin 29.2 pg (25.0-34.0); Mean Corpuscular Volume 87.9 fL (80.0-100.0); Platelet Count 267 K/uL (130-400); RDW Standard Deviation 44.2 fL (36.4-46.3); Red Blood Count 5.21 M/uL (4.20-5.40); White Blood Count 6.38 K/ul (4.8-10.8)
[2025-07-31 09:00] LABS: Alanine Aminotransferase 405.0 U/L (7-52); Albumin Globulin Ratio 1.5 (0.9-2); Albumin Level 4.3 gm/dl (3.4-5.0); Alkaline Phosphatase 108.0 U/L (34-104); Anion Gap 10.0 (3-11); Bilirubin,Total 0.9 mg/dl (0.2-1.0); Blood Urea Nitrogen 17.0 mg/dl (6-23); Calcium 9.4 mg/dl (8.6-10.3); Carbon Dioxide 29.0 mmol/L (21-32); Chloride 100.0 mmol/L (98-107); Creatinine Clr Calc Pharmacy 54.1 ml/min; Globulin 2.9 gm/dl (2.5-4.0); Glucose 149.0 mg/dl (70-99(Fasting)); Potassium 3.5 mmol/L (3.5-5.1); Sodium 139.0 mmol/L (136-145); Total Protein 7.2 gm/dl (6.0-8.3)
--- NOTE | 2025-07-31 09:32 | Hospitalist Progress Note ---
Date of Service July 31, 2025 Assessment & Plan (1) Acute cholecystitis: (2) Choledocholithiasis: (3) HTN (hypertension): (4) Sleep apnea: Plan This is a 70yo F with PMH of HTN, HLD, JAZMINE on CPAP, pulm HTN, PMR, history of uterine cancer s/p surgery and other medical problems listed below who presents with abdominal pain concerning for cholecystitis and choledocholithiasis. Acute cholecystitis Choledocholithiasis Pt is s/p ERCP on 07/30 - she underwent stone removal with biliary sphincterotomy LFTs continue to downtrend AST 135, ALT 405, alk phos 108 and total bilirubin WNL discussed with general surgery, they will determine timing of cholecystectomy will continue to trend CMP and check lipase will remain n.p.o. until surgery timing determined continue IV Zosyn, she has not been needing any analgesia continue IV Zosyn, IV fluids and PRN analgesia repeat CBC, CMP and lipase HTN-continue coreg, will continue to hold hctz until timing of surgery determined Hyperlipidemia-Resume statin as able JAZMINE on CPAP-CPAP HS PMR- currently not on steroid Rx Prediabetes- holding metformin for now, hemoglobin A1c of 5.04 Jul 2025 , FBS adequate DVT prophylaxis: SCDs Code: Full code PCP: Edwin Dispo: admitted to med/surg updated at bedside this morning. (Dev, contact [phone]) I spent a total of 41 minutes coordinating, documenting and providing care for this patient excluding time spent in the performance of separately billed services or time spent by another provider/QHP. Admission and Anticipated Discharge Date Admission Date: July 29, 2025 Subjective Patient was seen and examined in room 357 bed 1. is at bedside. She remains n.p.o. and is questioning if she will have surgery today. She denies any fever, chills, sweats, nausea, vomiting or continued abdominal pain. Review of Systems Review of Systems: All systems reviewed & are unremarkable except as noted in HPI & below Physical Exam Physical Exam: Gen: WD/WN, F, sitting up in bed, NAD, A&O x3 HEENT: Normocephalic, atraumatic, conjunctivae moist, sclerae anicteric, mucous membranes moist. Lung: Clear to Auscultation bilaterally, no wheezes/rales/rhonchi Heart: Regular rate, regular rhythm, no murmurs, rubs, or gallops Abdomen: Soft, minimal TTP epigastric/ruq otherwise no guarding, rigidity, ND +BS x 4 Extremities: No edema Skin: Warm, no rash, negative turgor. Results & Data Results & Data Vital Signs (Past 12 Hours) Vital Signs Temp Pulse Pulse Resp BP Pulse Ox O2 Del Method 07/31/25 05:00 36.6 C 71 16 132/88 96 Room Air, CPAP 07/31/25 04:29 66 15 94 07/31/25 01:20 36.5 C 70 17 129/82 94 Room Air 07/30/25 21:30 36.6 C 75 20 138/71 94 Nasal Cannula O2 Flow Rate FiO2 07/31/25 05:00 07/31/25 04:29 21 07/31/25 01:20 07/30/25 21:30 2 Laboratory Results I have independently reviewed and interpreted patient's CBC, CMP Short CBC 07/31/25 Range/Units 08:23 WBC 6.38 (4.8-10.8) K/ul Hgb 15.2 (12.0-16.0) g/dL Hct 45.8 (37.0-47.0) % Plt Count 267 (130-400) K/uL BMP 07/31/25 08:23 Sodium 139 Potassium 3.5 Chloride 100 Carbon Dioxide 29 BUN 17 Creatinine 1.09 Glucose 149 H Calcium 9.4 Liver Function 07/31/25 Range/Units 08:23 Total Bilirubin 0.9 (0.2-1.0) mg/dl AST 135 H (13-39) U/L ALT 405 H (7-52) U/L Alkaline Phosphatase 108 H (34-104) U/L Albumin 4.3 (3.4-5.0) gm/dl Diagnostic Findings Endo Retro Cholangiopancreatogram 07/30/25 17:02 [place] ERCP biliary ductal CLINICAL HISTORY: orcholecystectomy COMPARISON STUDY: CT 07/29/2025 FLUOROSCOPY TIME: 3 minutes and 41.9 seconds FLUOROSCOPY IMAGES: 5 EXPOSURE DOSE: 50.563 mGy FINDINGS: Endoscope within the duodenum. Cannulation of the common bile duct with balloon sweep. There is tapered narrowing of the mid to distal common bile duct. No definite choledocholithiasis or high-grade biliary stricture identified. Contrast noted within the duodenum. IMPRESSION: Fluoroscopic assistance as above. ACT 112: Negative or not required by law. Electronically signed by: Ellis Horner M.D. 07/31/2025 7:38 AM Medications Administered Current Inpatient Medications Acetaminophen (Acetaminophen 500 Mg Tab) 500 mg PO Q6H PRN PRN Reason: fever/pain Stop: 08/28/25 22:17 Carvedilol (Carvedilol 6.25 Mg Tab) 6.[address] [facility] Stop: 08/29/25 08:59 Last Admin: 07/31/25 09:04 Dose: 6.25 mg Duloxetine HCl (Duloxetine Hcl 60 Mg Cap) [address] [facility] Stop: 08/29/25 08:59 Last Admin: 07/31/25 09:04 Dose: 60 mg Hydrochlorothiazide (Hydrochlorothiazide 25 Mg Tab) 12.[address] [facility] Stop: 08/29/25 14:59 Last Admin: 07/30/25 22:59 Dose: Not Given Hydromorphone HCl (Hydromorphone Inj 0.5 Mg/0.5 Ml Syr) 0.5 mg IV Q6H PRN PRN Reason: Pain Stop: 08/12/25 22:17 Hydromorphone HCl (Hydromorphone Hcl 2 Mg Tab) 2 mg PO QID PRN PRN Reason: Pain Stop: 08/12/25 22:17 Promethazine HCl (Phenergan) 6.25 mg in 50.25 mls @ 201 mls/hr IV Q6H PRN PRN Reason: Nausea And Vomiting Stop: 08/28/25 22:17 Last Infusion: 07/30/25 14:32 Dose: Infused Piperacillin Sod/Tazobactam Sod (Zosyn) 4.5 gm in 100 mls @ 25 mls/hr IV Q8H [facility]; Protocol Stop: 08/09/25 01:59 Last Infusion: 07/31/25 09:03 Dose: Infused Lorazepam (Lorazepam 0.5 Mg Tab) 0.5 mg PO TID PRN PRN Reason: Anxiety Stop: 08/28/25 22:17 Multivitamins/Minerals (Cerovite Adv Formula Tab) [address] [facility] Stop: 08/29/25 08:59 Last Admin: 07/31/25 09:04 Dose: 1 tab
[2025-07-31 09:33] LABS: Appearance Urine Clear (Clear); Bacteria Urine Automated None Seen (None Seen); Cast Urine Automated 0-2 /lpf (0-2); Epithelial Cell Urine Auto 0-2 /hpf (0-2); Glucose Urine UA Trace (Negative); RBC Urine Automated 0-2 /hpf (0-2); WBC Urine Automated 0-5 /hpf (0-5)
--- NOTE | 2025-07-31 10:23 | Surgery Progress Note ---
Date of Service July 31, 2025 Assessment & Plan (1) Choledocholithiasis: Plan: removed via ERCP LFT's improving discussed options. pt would like her gallbladder removed this admission she is NPO. discussed risks (bleeding/infection/injury to a bile duct or other organ/dvt/pe/mi/cva etc.... questions answered will proceed with wolfgang hernandez today. she can eat later today. if does well possible d/c tomorrow from our standpoint. (2) Elevated liver enzymes: (3) Obesity (BMI 30-39.9): Admission and Anticipated Discharge Date Admission Date: July 29, 2025 Subjective pt seen. feeling better. no new complaints. Review of Systems Review of Systems: All systems reviewed & are unremarkable except as noted in HPI & below Physical Exam Constitutional: WD/WN, vitals as above no acute distress and not ill appearing Eyes: PERRL, conjunctivae normal, anicteric sclerae EOM intact bilaterally ENMT: external ear and nose normal, oropharynx normal Ears: no hearing impairment Neck: trachea midline, no thyromegaly Respiratory: normal respiratory effort; no respiratory distress and does not use accessory muscles Cardiovascular: Rate/Rhythm: regular rate and regular rhythm Gastrointestinal (Abdomen): normal bowel sounds, soft, nontender, no hepatosplenomegaly Skin: no rashes, warm and dry Psychiatric: Orientation: alert, oriented x 3 and cooperative Results & Data Vital Signs (Past 12 Hours) Vital Signs Temp Pulse Pulse Resp BP Pulse Ox O2 Del Method 07/31/25 09:28 36.5 C 63 18 154/89 H 97 Room Air 07/31/25 05:00 36.6 C 71 16 132/88 96 Room Air, CPAP 07/31/25 04:29 66 15 94 07/31/25 01:20 36.5 C 70 17 129/82 94 Room Air FiO2 07/31/25 09:28 07/31/25 05:00 07/31/25 04:29 21 07/31/25 01:20 PG Care Time/CCT Total # of Minutes Spent Total Time Spent with Patient: Total time spent is greater than 50% in coordination of care (as documented) at patient's floor/unit and/or counseling patient: Coding Level of Care Code 65245 SUB INP/OBS CARE 09/19MIN Diagnoses Choledocholithiasis K80.50 Elevated liver enzymes R74.8 Obesity (BMI 30-39.9) E66.9
--- NOTE | 2025-07-31 11:31 | Anesthesiology Consultation ---
Date of Service July 31, 2025 Assessment & Plan Chart Review Chart Review: Acceptable Risk for Surgery Consults Requested none History Surgery Operation Date: 07/30/25 12:35 Proposed Procedures p Endoscopic Retrograde Cholangiopancreatogram - Shaquille Fitzgerald MD Operation Date: 07/31/25 09:50 Proposed Procedures p Laparoscopic Cholecystectomy - Moe Hernadez DO Height/Weight Height: 5 ft 5 in Weight: 98.1 kg Allergies Allergy/AdvReac Type Severity Reaction Status Date / Time codeine AdvReac Intermediate NAUSEA & Verified 07/29/25 18:49 VOMITING morphine AdvReac Intermediate GI SYMPTOMS Verified 07/29/25 18:49 oxycodone AdvReac Intermediate GI SYMPTOMS Verified 07/29/25 18:49 Medications Home Medications Medication Instructions Recorded Confirmed Last Taken carvedilol 6.25 mg tablet 6.25 mg PO BID 05/05/24 07/29/25 07/29/25 08:00 celecoxib 100 mg capsule (Celebrex) 100 mg PO BID 05/05/24 07/29/25 07/29/25 08:00 duloxetine 60 mg capsule,delayed 60 mg PO QAM 05/05/24 07/29/25 07/29/25 release hydrochlorothiazide 12.5 mg tablet 12.5 mg PO QAM 05/05/24 07/29/25 07/29/25 metformin 500 mg tablet 500 mg PO BID 05/05/24 07/29/25 07/29/25 08:00 oaisidut-zrs-ddvgg acid 0.4 1 tab PO DAILY 05/05/24 07/29/25 07/29/25 mg-lycopene 300 mcg-lutein 250 mcg tablet (Centrum Silver) amoxicillin 500 mg tablet 2,000 mg PO DIRECTED PRN 1 HR 07/29/25 07/29/25 Unknown PRIOR TO DENTAL PROCEDURES atorvastatin 40 mg tablet 40 mg PO DAILY 07/29/25 07/29/25 07/29/25 zinc acetate 50 mg (zinc) capsule 50 mg PO DAILY 07/29/25 07/29/25 07/29/25 Active Medications Generic Name Dose Route Start Last Admin Trade Name Freq PRN Reason Stop Dose Admin Carvedilol 6.25 mg 07/30/25 09:00 07/31/25 09:04 Carvedilol 6.25 Mg Tab PO 08/29/25 08:59 6.25 mg BID ERAN Administration Duloxetine HCl 60 mg 07/30/25 09:00 07/31/25 09:04 Duloxetine Hcl 60 Mg Cap PO 08/29/25 08:59 60 mg QAM ERAN Administration Hydrochlorothiazide 12.5 mg 07/30/25 15:00 07/30/25 22:59 Hydrochlorothiazide 25 Mg Tab PO 08/29/25 14:59 Not Given QAM ERAN Promethazine HCl 6.25 mg in 50.25 mls @ 201 mls/hr 07/29/25 22:18 07/30/25 14:32 Phenergan IV 08/28/25 22:17 Infused Q6H PRN Infusion Nausea And Vomiting Piperacillin Sod/Tazobactam Sod 4.5 gm in 100 mls @ 25 mls/hr 07/30/25 02:00 07/31/25 11:06 Zosyn IV 08/09/25 01:59 25 mls/hr Q8H ERAN Administration Protocol Multivitamins/Minerals 1 tab 07/30/25 09:00 07/31/25 09:04 Cerovite Adv Formula Tab PO 08/29/25 08:59 1 tab DAILY ERAN Administration NPO Date Last Intake of Fluids: 07/29/25 Time Last Intake of Fluids: 12:00 Date Last Intake of Solids: 07/29/25 Time Last Intake of Solids: 12:00 Past Medical History Medical History (Updated 07/30/25 @ 11:58 by Latasha Guillory PA-C) Generalized osteoarthritis Sleep apnea CPAP-compliant Prediabetes metformin HTN (hypertension) controlled, stable per pt History of uterine cancer Past Surgical History Surgical History (Updated 07/30/25 @ 11:58 by Latasha Guillory PA-C) History of carpal tunnel surgery of right wrist History of lumbar laminectomy for spinal cord decompression " x [address] Dr. Cobian" History of total right knee replacement (TKR) "Dr. Haji 02/24/14" S/P KENIA-BSO (total abdominal hysterectomy and bilateral salpingo-oophorectomy) "secondary to stage 1 gr1 endometrial Ca 01/28/12" H/O colonoscopy H/O: Hx of colonoscopy History of lumbar laminectomy for spinal cord decompression x2 2007, 2009 - Dr. Cobian History of total bilateral knee replacement (TKR) S/P KENIA-BSO (total abdominal hysterectomy and bilateral salpingo-oophorectomy) due to uterine cancer History of carpal tunnel release of both wrists Hx of section (1985) Social History Smoking Status: Never smoker Do You Dip or Chew Tobacco: No Hx Alcohol Use: Yes Alcohol type: wine alcohol intake frequency: 0-2 drinks per day Alcohol Intake Frequency Comment: A glass of wine at night. None in last 2 weeks. Hx Substance Use: No substance use type: does not use Physical Exam Vital Signs Last Vital Signs Temp 36.5 C 07/31/25 09:28 Pulse 63 07/31/25 09:28 Resp 18 07/31/25 09:28 BP 154/89 H 07/31/25 09:28 Pulse Ox 97 07/31/25 09:28 O2 Del Method Room Air 07/31/25 09:28 O2 Flow Rate 2 07/30/25 21:30 FiO2 21 07/31/25 04:29 Testing Laboratory Results 07/31/25 08:23 07/31/25 08:23 PT 10.3 Seconds (9.0-12.0) 07/29/25 17:49 INR 1.0 (0.9-1.1) 07/29/25 17:49 Urine Color Yellow 07/31/25 09:15 Urine Appearance Clear (Clear) 07/31/25 09:15 Urine pH 5.5 (4.5-7.5) 07/31/25 09:15 Ur Specific [place] 1.017 (1.000-1.030) 07/31/25 09:15 Urine Protein Trace (Negative) H 07/31/25 09:15 Urine Glucose (UA) Trace (Negative) H 07/31/25 09:15 Urine Ketones Trace (Negative) H 07/31/25 09:15 Urine Nitrite Negative (Negative) 07/31/25 09:15 Ur Leukocyte Esterase Negative (Negative) 07/31/25 09:15 Urine WBC (Auto) 0-5 /hpf (0-5) 07/31/25 09:15 Urine RBC (Auto) 0-2 /hpf (0-2) 07/31/25 09:15 U Hyaline Cast (Auto) 0-2 /lpf (0-2) 07/31/25 09:15 U Epithel Cells (Auto) 0-2 /hpf (0-2) 07/31/25 09:15 Urine Bacteria (Auto) None Seen (None Seen) 07/31/25 09:15
[2025-07-31] MEDS ORDERED: PROMETHAZINE HCL 6.25 MG in SODIUM CHLORIDE 0.9% 50 ML IV PRN (11:33)
[2025-07-31] MEDS ORDERED: ONDANSETRON INJ 2 MG/ML 2 ML VIAL IV PRN (11:33)
[2025-07-31] MEDS ORDERED: HYDROmorphone INJ 1 MG/ML SYRINGE IV PRN (11:33)
[2025-07-31] MEDS ORDERED: ATROPINE SULFATE 0.1 MG/ML 10ML SYR IV PRN (11:33)
[2025-07-31] MEDS ORDERED: MIDAZOLAM HCL 1 MG/ML 2ML VIAL ONE (12:03)
[2025-07-31] MEDS ORDERED: LIDOCAINE 2% 2 ML VIAL/AMP(20MG/ML) INFIL ONE (12:04)
[2025-07-31] MEDS ORDERED: ROCURONIUM BROMIDE 10 MG/ML 5 ML VIAL IV ONE (12:04)
[2025-07-31] MEDS ORDERED: PROPOFOL IV EMULSION 10 MG/ML 20 ML VIAL IV ONE (12:04)
[2025-07-31] MEDS ORDERED: DEXAMETHASONE SOD INJ 4 MG/ML VIAL ONE (12:04)
[2025-07-31] MEDS ORDERED: ONDANSETRON INJ 2 MG/ML 2 ML VIAL ONE (12:04)
[2025-07-31] MEDS ORDERED: SUGAMMADEX SODIUM 200 MG/2 ML VIAL IV ONE (12:05)
[2025-07-31] MEDS: BUPIVACAINE/EPINEPHRINE 0.5% MPF 1:200,000 30 ML VIAL ONE (12:35)
[2025-07-31] MEDS ORDERED: LABETALOL HCL IV 5 MG/ML 20ML IV ONE (12:45)
--- NOTE | 2025-07-31 13:27 | Operative Report ---
PG Post Operative Report Pre & Post Diagnosis Operation Date: 07/31/25 09:50 Pre-Op Diagnosis: Choledocholithiasis Post-Op Diagnosis: Choledocholithiasis; umbilical hernia I identified the patient and participated in the time-out.: Yes Procedure Operation Date: 07/31/25 09:50 Actual Procedures p Laparoscopic Cholecystectomy; Repair of Umbilical Hernia ( 3 cm) - Moe Hernadez DO Surgeon Moe Hernadez DO Operations Support Manager chris Gentile Estimated Blood Loss 50 Findings Consistent with Post-Op Diagnosis Specimens gallbladder Description of Procedure After informed consent was obtained the patient was taken to the operating room and placed in the supine position. After successful intubation the abdomen was sterilely prepped and draped in usual fashion. After the patient was under general anesthetic there was an obvious umbilical hernia. I therefore decided to use this natural opening for the camera port. An infra-umbilical incision was made with an 15 blade scalpel and carried down through the soft tissue using electrocautery. I then used a Deena clamp to come around the superior aspect of the umbilicus. The umbilical stalk was taken down using cautery revealing about a 3 cm umbilical hernia. I excised the hernia sac as well as some preperitoneal fat in 360 degrees and discarded it. Next 2 #0 Vicryl stay sutures were placed on either side of the fascial defect. A finger sweep was performed and a 12 mm Jackman trocar was placed. The abdomen was insufflated to 18 mmHg. The laparoscope was inserted and the abdomen was examined in 360. No gross abnormalities were identified. A subxiphoid 11 mm port and 2 right upper quadrant 5 mm ports were placed under direct vision. The patient was placed in a reverse Trendelenburg position and slightly airplaned to the left. The gallbladder was grasped and elevated superiorly and laterally. A [place] dissector was used to take down adhesions around the neck of the gallbladder. The cystic duct was identified and skeletonized. It was clipped twice proximally and once distally and transected using a laparoscopic scissor. In similar fashion the cystic artery was identified and skeletonized clipped and divided. The gallbladder was removed from the gallbladder fossa with electrocautery. It was placed into an Endo Catch bag. Thorough irrigation was performed. At the end of the procedure there was adequate hemostasis and no evidence of any bile leaks. A final look around the abdomen showed no other abnormalities. The gallbladder and trochars were all removed and the abdomen was desufflated. The fascia of the hernia defect was closed using 0 Vicryl in a spjnwq-nr-qznsr fashion. I then reinforced this closure using 0 Ethibond in simple erupted fashion. The umbilical stalk was reattached to the fascia using 0 Vicryl. The hernia incision was closed using 3-0 Vicryl deep layers and 4 Monocryl for skin. All the additional incisions were irrigated and closed using 4-0 Monocryl. Marcaine was injected around them for postoperative analgesia and skin glue used as a dressing. The patient was awaken extubated and transferred to recovery in stable condition. My physician's market research assistant was present throughout the entire case... helped with prepping the patient. With exposure for trocar placement, as well as retracted the gallbladder throughout the case and also assisted with wound closure and dressing placement. I attest to the content of the Intraoperative Record and any orders documented therein. Any exceptions are noted below.
[2025-07-31] MEDS ORDERED: HYDROmorphone INJ 0.5 MG/0.5 ML SYR IV PRN ×2 (14:21)
[2025-07-31] MEDS: ACETAMINOPHEN 500 MG TAB PO PRN (15:25)
[2025-07-31] MEDS: LACTATED RINGER'S 1,000 ML IV SCH (15:33)
--- NOTE | 2025-07-31 16:26 | Anesthesiology Progress Note ---
Date of Service July 31, 2025 Anesthesia Post Procedure Vital Signs Vital Signs: Temp Pulse Pulse Pulse Resp BP Pulse Ox 07/31/25 16:14 36.5 C 67 18 154/90 H 100 07/31/25 15:14 36.5 C 65 17 155/83 H 100 07/31/25 14:45 36.6 C 62 18 180/95 H 100 07/31/25 14:34 160/98 H 07/31/25 14:11 36.5 C 63 18 174/101 H 100 07/31/25 14:00 65 14 162/92 H 100 07/31/25 13:50 63 16 166/86 H 93 07/31/25 13:40 36.6 C 62 14 173/88 H 98 07/31/25 13:30 64 16 172/97 H 100 07/31/25 13:20 36 C L 65 18 162/89 H 97 07/31/25 09:28 36.5 C 63 18 154/89 H 97 07/31/25 05:00 36.6 C 71 16 132/88 96 07/31/25 04:29 66 15 94 07/31/25 01:20 36.5 C 70 17 129/82 94 07/30/25 21:30 36.6 C 75 20 138/71 94 07/30/25 21:00 72 17 93 07/30/25 20:40 70 19 144/68 H 95 07/30/25 19:24 36.6 C 67 17 167/84 H 93 07/30/25 18:40 71 20 152/79 H 95 07/30/25 18:30 68 18 155/79 H 95 07/30/25 18:20 67 18 151/89 H 94 07/30/25 18:10 73 20 142/76 H 96 07/30/25 18:00 73 18 135/88 99 07/30/25 17:50 75 20 155/91 H 97 07/30/25 17:47 36.2 C L 76 12 129/89 98 O2 Del Method O2 Flow Rate FiO2 07/31/25 16:14 Room Air 07/31/25 15:14 Nasal Cannula 1 07/31/25 14:45 Nasal Cannula 2 07/31/25 14:34 07/31/25 14:11 Nasal Cannula 2 07/31/25 14:00 Nasal Cannula 2 07/31/25 13:50 Nasal Cannula 3 07/31/25 13:40 Room Air 07/31/25 13:30 Oxymask 4 07/31/25 13:20 Oxymask 6 07/31/25 09:28 Room Air 07/31/25 05:00 Room Air, CPAP 07/31/25 04:29 21 07/31/25 01:20 Room Air 07/30/25 21:30 Nasal Cannula 2 07/30/25 21:00 21 07/30/25 20:40 Room Air 07/30/25 19:24 Room Air 07/30/25 18:40 Room Air 07/30/25 18:30 Room Air 07/30/25 18:20 Room Air 07/30/25 18:10 Room Air 07/30/25 18:00 Room Air 07/30/25 17:50 Oxymask 6 07/30/25 17:47 Oxymask 6 Pain Intensity Left Lower Abdomen: Pain Intensity: 3 Abdomen: Pain Intensity: 4 Transfer of Care Handoff Completed per policy Notes Mental Status: alert / awake / arousable and participated in evaluation Patient Amnestic to Procedure: Yes Nausea / Vomiting: adequately controlled Pain: adequately controlled Airway Patency, RR, SpO2: stable & adequate BP & HR: stable & adequate Hydration State: stable & adequate Anesthetic Complications: no major complications apparent
[2025-07-31] MEDS: hydroCHLOROthiazide 25 MG TAB PO STA (16:39)
[2025-08-01 05:26] VITALS: RESP 18; TEMP 97.7
[2025-08-01 06:41] LABS: Hematocrit (blood only) 39.5 % (37.0-47.0); Hemoglobin 13.5 g/dL (12.0-16.0); Immature Granulocytes # (auto) 0.03 K/uL (0.01-0.20); Immature Granulocytes % (auto) 0.3 %; Mean Corpuscular Hemoglobin 29.9 pg (25.0-34.0); Mean Corpuscular Volume 87.6 fL (80.0-100.0); Platelet Count 215 K/uL (130-400); RDW Standard Deviation 44.3 fL (36.4-46.3); Red Blood Count 4.51 M/uL (4.20-5.40); White Blood Count 9.29 K/ul (4.8-10.8)
[2025-08-01 07:25] LABS: Alanine Aminotransferase 290.0 U/L (7-52); Albumin Globulin Ratio 1.5 (0.9-2); Albumin Level 4.0 gm/dl (3.4-5.0); Alkaline Phosphatase 85.0 U/L (34-104); Anion Gap 9.0 (3-11); Bilirubin,Total 0.9 mg/dl (0.2-1.0); Blood Urea Nitrogen 16.0 mg/dl (6-23); Calcium 9.3 mg/dl (8.6-10.3); Carbon Dioxide 28.0 mmol/L (21-32); Chloride 104.0 mmol/L (98-107); Creatinine Clr Calc Pharmacy 62.1 ml/min; Globulin 2.6 gm/dl (2.5-4.0); Glucose 121.0 mg/dl (70-99(Fasting)); Lipase 19.0 U/L (11-82); Potassium 3.6 mmol/L (3.5-5.1); Sodium 141.0 mmol/L (136-145); Total Protein 6.6 gm/dl (6.0-8.3)
[2025-08-01 09:15] VITALS: BP 159/82; PULSE 67; O2SAT 97
--- NOTE | 2025-08-01 10:04 | Discharge Summary ---
Discharge Summary Date of Service August 01, 2025 Principal Dx & Hospital Course #1 = Principal Diagnosis (1) Acute cholecystitis: (2) Choledocholithiasis: (3) HTN (hypertension): (4) Sleep apnea: Plan This is a 70yo F with PMH of HTN, HLD, JAZMINE on CPAP, pulm HTN, PMR, history of uterine cancer s/p surgery and other medical problems listed below who presents with abdominal pain concerning for cholecystitis and choledocholithiasis. Acute cholecystitis Choledocholithiasis Pt is s/p ERCP on 07/30 - she underwent stone removal with biliary sphincterotomy LFTs continue to downtrend AST 77, ALT 290, alk phos WNL and total bilirubin WNL Pt is s/p Lap Tahira on 07/31/25 and tolerated procedure well, incisions CDI, abdomen on tender on day of discharge tolerating diet, will upgrade to regular diet for lunch and if tolerates can be discharged to home Per general surgery antibiotics no longer required HTN-post operatively pt blood pressure was elevated, HCTZ was resumed, will continue coreg Dispo: pt to be discharged home today Notes For Next Care Provider Please repeat CMP to follow up liver functions and ensure they have returned to normal. On day of d/c ALP and Bili WNL, AST and ALT mildly elevated at 77 and 290. Please monitor blood pressure. It was elevated post operatively. Continuing current regimen of hctz and coreg. Medication Changes From Visit none Admission HPI Per Admitting Provider History obtained from patient, family, and records. Medical history significant for hypertension, hyperlipidemia, JAZMINE on CPAP, pulmonary hypertension, prediabetes, PMR, uterine cancer status post surgery. Last confinement 2017 under Orthopedics service for elective left total knee arthroplasty. Patient noticed achy left-sided abdominal pain after lunch today. Some nausea, no emesis. No fever, no chills. No chest pain, no SOB. Patient consulted urgent care center. No ischemia on EKG. Patient advised to go to ER if with worsening symptoms. IV Zosyn administered at the ER for cholecystitis. 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 Admission Exam Per Admitting Provider GENERAL: Comfortable, pleasant, obese, no respiratory distress SKIN: Normal color, warm HEENT: [place] palpebral conjunctivae, no ptosis, dry buccal mucosa NECK : Supple, no tenderness CHEST : CTA, no tenderness HEART : RRR, no obvious murmurs ABDOMEN: Some distention, epigastric tenderness EXTREMITIES : Minimal LE swelling, no LE tenderness, palpable pulses, no other conspicuous deformities noted NEUROLOGIC : Coherent, no facial asymmetry, no other gross focality Discharge Exam Gen: WD/WN, F, sitting up in bed, NAD, A&O x3 HEENT: Normocephalic, atraumatic, conjunctivae moist, sclerae anicteric, mucous membranes moist. Lung: Clear to Auscultation bilaterally, no wheezes/rales/rhonchi Heart: Regular rate, regular rhythm, no murmurs, rubs, or gallops Abdomen: soft, NT, lap incisions x 4 healing well w/o drainage Extremities: No edema Skin: Warm, no rash, negative turgor. Updated Medication List Medication Instructions Recorded Confirmed Type carvedilol 6.25 mg tablet 6.25 mg PO BID 05/05/24 07/29/25 History celecoxib 100 mg capsule (Celebrex) 100 mg PO BID 05/05/24 07/29/25 History duloxetine 60 mg capsule,delayed 60 mg PO QAM 05/05/24 07/29/25 History release hydrochlorothiazide 12.5 mg tablet 12.5 mg PO QAM 05/05/24 07/29/25 History metformin 500 mg tablet 500 mg PO BID 05/05/24 07/29/25 History iglgddxk-yar-emzly acid 0.4 1 tab PO DAILY 05/05/24 07/29/25 History mg-lycopene 300 mcg-lutein 250 mcg tablet (Centrum Silver) amoxicillin 500 mg tablet 2,000 mg PO DIRECTED PRN 1 HR 07/29/25 07/29/25 History PRIOR TO DENTAL PROCEDURES atorvastatin 40 mg tablet 40 mg PO DAILY 07/29/25 07/29/25 History zinc acetate 50 mg (zinc) capsule 50 mg PO DAILY 07/29/25 07/29/25 History Hospital Stay Data Consultations 07/29/25 21:25 ED Decision to Admit Stat 07/29/25 22:17 Consult General Surgery Routine 07/29/25 23:00 Consult Gastroenterology Routine Procedures Performed Operation Date: 07/31/25 09:50 Actual Procedures p Laparoscopic Cholecystectomy; Repair of Umbilical Hernia - Moe Hernadez DO Diagnostic Imagining Performed Abdomen/Pelvis CT 07/29/25 17:37 EXAMINATION: CT of the abdomen and pelvis performed after the administration of IV contrast TECHNIQUE: Helical CT images from the lung bases through the symphysis pubis were obtained with contrast. Coronal and sagittal reformatted images were generated at a workstation for further assessment. Dose reduction techniques were achieved by using automatic exposure control and/or adjustment of mA and/or kV according to patient size and/or use of iterative reconstruction technique. COMPARISON: None HISTORY: Abdominal pain FINDINGS: Lower chest: No consolidation. No pleural effusion or pneumothorax. Liver: No suspicious liver lesions. Portal veins appear patent. Gallbladder: There is a few calcified gallstones. Possible trace free fluid between the gallbladder and liver. Dilated extrahepatic bile duct up to 14 mm. Spleen: Normal size. Pancreas: No suspicious pancreatic lesions. The pancreatic duct is not dilated. Adrenal glands: No adrenal nodules. Kidneys: No hydronephrosis or obstructing renal stones. Bladder / Pelvic organs: Unremarkable. Bowel: No bowel obstruction. No abnormal bowel wall thickening. The appendix is normal. Lymph nodes: No retroperitoneal, mesenteric, or pelvic lymphadenopathy. Peritoneum / Retroperitoneum: No free fluid or air within the abdomen. Vessels: No infrarenal aortic aneurysm. Bones and soft tissues: No suspicious lesion in the bones. Right hip arthroplasty. Fixation changes of the lumbar spine. IMPRESSION: Cholelithiasis. Possible trace free fluid between the liver and gallbladder. Consider evaluation for acute cholecystitis. Dilated extrahepatic bile duct up to 14 mm, possibly reactive or due to choledocholithiasis. Consider MRCP. Electronically signed by Clemente Blanchard 07-29-2025 7:14 PM Chest X-Ray 07/29/25 17:37 Chest radiograph, one view History: Flank pain Comparison: None Findings: Single AP view of the chest performed. No focal consolidation or pleural effusion. No pneumothorax. The cardiomediastinal silhouette is within normal limits. Normal pulmonary vascularity. No evidence for lymphadenopathy. No visualized bony or soft tissue abnormality. Impression: Normal chest radiograph Electronically signed by Clemente Blanchard 07-29-2025 6:16 PM Gallbladder Ultrasound 07/29/25 19:22 Exam(s): US GALLBLADDER EXAM: US Abdomen Limited, Gallbladder CLINICAL HISTORY: stones, pain. TECHNIQUE: Real-time ultrasound of the right upper quadrant with image documentation. COMPARISON: CT abdomen and pelvis with contrast performed earlier FINDINGS: Liver: The liver is hyperechoic measuring at least 21 cm in length. Gallbladder: Echogenic gallstones noted in the gallbladder. The gallbladder wall measures 3.2 mm with questionable intramural edema or subtle pericholecystic fluid. There is a reported negative sonographic Walsh's sign. Common bile duct: The common bile duct is dilated, measuring up to 1.6 cm near the rambo hepatis. No stones. Pancreas: Visualized segments of the pancreas are unremarkable. Right kidney: The right kidney measures 10.9 cm. Aorta: The proximal aorta is normal in caliber. Inferior vena cava: The IVC is unremarkable. Free fluid: No free fluid. IMPRESSION: 1. Echogenic gallstones noted in the gallbladder. The gallbladder wall measures 3.2 mm with questionable intramural edema or subtle pericholecystic fluid. There is a reported negative sonographic Walsh's sign. Findings are somewhat equivocal sonographically; however, acute cholecystitis is difficult to entirely exclude. Functional radionuclide imaging of the gallbladder may be performed in clinically equivocal cases. 2. The common bile duct is dilated, measuring up to 1.6 cm near the rambo hepatis. 3. The liver is hyperechoic measuring at least 21 cm in length. Electronically signed by: Moe Stone MD 07/29/25 21:03 PM Cholangiopancreatography MRI 07/29/25 22:17 EXAM: MR MRCP CLINICAL HISTORY: abn lfts TECHNIQUE: Multiplanar multisequence magnetic resonance imaging of the abdomen without intravenous contrast. COMPARISON: None. FINDINGS: Liver: Normal size and morphology. Homogeneous signal intensity on T2-weighted images. No focal hepatic lesions. Gallbladder and bile ducts: Gallbladder is well distended with multiple T2 hypointense filling defects noted within largest measuring approximately 11 mm with suggestion of wall thickening measuring up to 3 mm. Dilated common bile duct measuring up to 9 mm in caliber. Evidence of 4.5 mm T2 hypointense filling defect noted in distal CBD - likely choledocholithiasis. Moderate bilobar intrahepatic biliary radical dilatation. Pancreas: Normal size and contour. Homogeneous signal intensity on T2-weighted images. No masses or cystic lesions. Pancreatic Duct: Pancreatic duct is normal in caliber. No evidence of ductal dilatation or filling defects. Spleen: Normal size and appearance. Homogeneous signal intensity. Kidneys: Normal size, shape, and position of both kidneys. Homogeneous signal intensity on T2-weighted images. No renal stones, masses, or hydronephrosis. Mild perinephric fat stranding is seen on both sides. Adrenal Glands: Normal size and morphology bilaterally. No adrenal masses. Surrounding Structures: No evidence of free fluid or abnormal fluid collections in the abdomen. Normal appearance of the visualized bowel loops. IMPRESSION: Gallbladder is well distended with multiple T2 hypointense filling defects noted within largest measuring approximately 11 mm with suggestion of wall thickening measuring up to 3 mm. Dilated common bile duct measuring up to 9 mm in caliber. Evidence of 4.5 mm T2 hypointense filling defect noted in distal CBD - likely choledocholithiasis. Moderate bilobar intrahepatic biliary radical dilatation. Mild perinephric fat stranding is seen on both sides. Electronically signed by Carlos Esparza 07-30-2025 01:36 AM Endo Retro Cholangiopancreatogram 07/30/25 17:02 [place] ERCP biliary ductal CLINICAL HISTORY: orcholecystectomy COMPARISON STUDY: CT 07/29/2025 FLUOROSCOPY TIME: 3 minutes and 41.9 seconds FLUOROSCOPY IMAGES: 5 EXPOSURE DOSE: 50.563 mGy FINDINGS: Endoscope within the duodenum. Cannulation of the common bile duct with balloon sweep. There is tapered narrowing of the mid to distal common bile duct. No definite choledocholithiasis or high-grade biliary stricture identified. Contrast noted within the duodenum. IMPRESSION: Fluoroscopic assistance as above. ACT 112: Negative or not required by law. Electronically signed by: Ellis Horner M.D. 07/31/2025 7:38 AM Pending Results Patient Have Any Pending Studies at Discharge: Yes Discharge Instructions Given to Patient (Per Discharging Provider) SPECIAL CARE INSTRUCTIONS: * You have skin glue over your incisions called dermabond. you may shower with this on. It will tend to dissolve and fall off within a couple weeks. Do not pick at the skin glue * You may shower. NO soaking in pools or baths for 2 weeks * No lifting greater than 10lbs. No strenuous exercise until cleared by surgeon. Light walking is accepted. * No driving while taking narcotic pain medication; wait at least 3 days * No drinking alcohol while taking narcotic pain medication * May use Ibuprofen/Tylenol over the counter for pain as tolerated. Do not exceed 3grams of Tylenol per 24 hours * Expect some swelling and bruising. * Diet- you may resume your regular diet Call your doctor if: * Temperature above 101 degrees, nausea/vomiting, fever/chills * Pain not relieved by pain medicine ordered * There is increased drainage or redness from any incision * You have any unanswered questions or concerns [phone]. FOLLOW UP VISIT: If not already scheduled, please call the office for a follow-up visit. Office Total Time Total Time Spent Total Time Spent (In Minutes): 45 minutes Supervising Physician Co-Signing Physician Notes Patient seen and examined independently. Discussed with open provider. Patient is doing well after surgery. She is tolerating diet without any issues. She is having regular bowel movements. Surgery okay for her discharge; plans to follow-up in 1 to 2 weeks I have reviewed the advanced practitioner's documentation, and I agree with, and take responsibility for the plan of care I spent a total of 25 minutes coordinating, documenting, and providing care for this patient excluding time spent in the performance of separately billed services. All of the aforementioned completed while collaborating with the assigned advanced practitioner for a full treatment plan
--- NOTE | 2025-08-01 10:04 | Surgery Progress Note ---
Date of Service August 01, 2025 Assessment & Plan (1) S/P laparoscopic cholecystectomy: (2) H/O umbilical hernia repair: Plan: POD #1 s/p Lap Tahira with umbilical hernia repair. Lorena is doing well this morning, tolerating a full liquid diet. Denies nausea. Afebrile. Did have some bleeding at umbilical incision overnight. Incision is dry this morning with no evidence of active bleeding. WBC within normal limits. LFTs improving. From general surgery perspective she is ok for discharge. Discharge instructions reviewed. She is going to see Dr. Hernadez in office in 1-2 weeks for follow-up. Patient seen and examined with Dr. Hernadez. As above. Doing extremely well. Okay for discharge from our standpoint. Instructions discussed. Admission and Anticipated Discharge Date Admission Date: July 29, 2025 Subjective Lorena is resting in bed this morning, reports that she is doing well! She is tolerating a full liquid diet. She did have some post-op bleeding of her umbilical incision- dressing was placed. Physical Exam Physical Exam: Abdominal incisions are intact- dressing lifted from umbilical incision- old blood present, but no evidence of active bleeding. No signs of hematoma formation. Results & Data Vital Signs (Past 12 Hours) Vital Signs Temp Pulse Pulse Resp BP Pulse Ox O2 Del Method 08/01/25 09:14 36.5 C 67 18 159/82 H 97 Room Air 08/01/25 05:25 36.5 C 59 L 18 165/84 H 98 Room Air, CPAP 08/01/25 02:32 69 14 96 08/01/25 01:17 36.6 C 63 20 143/83 H 95 Room Air, CPAP PG Care Time/CCT Total # of Minutes Spent Total Time Spent with Patient: Total time spent is greater than 50% in coordination of care (as documented) at patient's floor/unit and/or counseling patient: Coding Level of Care Code 36380 Post Operative Follow-Up Diagnoses S/P laparoscopic cholecystectomy Z90.49 H/O umbilical hernia repair Z98.890; Z87.19
== END 2025-08-01 13:32 | disposition home or self-care (01) | DRG 419 ==
LOC: ED 17:32 → 3W 21:53 → SUATTDRO 21:53 → 3W 22:38